=== PATIENT | male | born 1970 | race Two or more races ===

== ENCOUNTER 2021-11-10 08:57 | Emergency (ER) | payer MEDICAID, SELFPAY ==
--- NOTE | ~2021-11-10 | XR_ITS ---
EXAMINATION: XR ELBOW, RIGHT. Right wrist. CLINICAL INFORMATION: Pain. Pain COMPARISON: None TECHNIQUE: AP, lateral, and oblique views of the right wrist and right elbow. FINDINGS: Right elbow: No fracture, dislocation or destructive lesion. There is a small spur off the olecranon. Radial head appears intact. No erosive change. 3 views of the right wrist show normal carpal alignment. There is moderate degenerative change at the first CMC joint with marginal spurring as well as osteophyte formation at the junction of the scaphoid, and multangular bones. Distal radius and ulna are intact. XR/XR wrist RT w scaphoid IMPRESSION: Degenerative changes noted. No acute findings.
--- NOTE | ~2021-11-10 | XR_ITS ---
EXAMINATION: XR ELBOW, RIGHT. Right wrist. CLINICAL INFORMATION: Pain. Pain COMPARISON: None TECHNIQUE: AP, lateral, and oblique views of the right wrist and right elbow. FINDINGS: Right elbow: No fracture, dislocation or destructive lesion. There is a small spur off the olecranon. Radial head appears intact. No erosive change. 3 views of the right wrist show normal carpal alignment. There is moderate degenerative change at the first CMC joint with marginal spurring as well as osteophyte formation at the junction of the scaphoid, and multangular bones. Distal radius and ulna are intact. XR/XR elbow RT min 3V IMPRESSION: Degenerative changes noted. No acute findings.
[2021-11-10 09:59] VITALS: BP 139/81; PULSE 62; RESP 18; TEMP 36.8; O2SAT 98; BMI 29.5
--- NOTE | 2021-11-10 10:55 | ED_ITS ---
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 Patient is right-handed any tells me at his job he does do repetitive movement with his right upper extremity. He denies any associated weakness, numbness, tingling. Patient reports pain and the entire extremity but feels like it is more focal over the wrist and elbow. Related Data Previous Rx's Medication Instructions Recorded cyclobenzaprine 10 mg tablet 10 mg PO TID PRN #20 tab 11/10/21 naproxen 500 mg tablet 500 mg PO BID PRN #30 tab 11/10/21 Allergies Allergy/AdvReac Type Severity Reaction Status Date / Time No Known Allergies Allergy Verified 11/10/21 09:58 [No Known Allergies*] Review of Systems Review of Systems: Yes all other systems are reviewed and are negative Constitutional: Constitutional: Reports no additional constitutional complaints, Denies body ache(s), Denies chills, Denies fever(s), Denies headache(s) and Denies weakness Eyes: Eyes: Reports no additional eye complaints and Denies change in vision ENT: Reports system reviewed and no additional complaints, except as documented, Denies dizziness, Denies headache(s), Denies nasal congestion, Denies nasal discharge and Denies neck pain Cardiovascular: Cardiovascular: Reports no additional cardiovascular complaints, Denies chest pain, Denies leg edema and Denies dyspnea Respiratory: Respiratory: Reports no additional respiratory complaints, Denies cough and Denies dyspnea Gastrointestinal: Gastrointestinal: Reports no additional gastrointestinal complaints, Denies abdominal pain, Denies diarrhea, Denies nausea and Denies vomiting Genitourinary: Genitourinary: Denies urinary incontinence Musculoskeletal: Musculoskeletal: Reports no additional musculoskeletal complaints, Denies back pain, Reports arthralgias, Denies joint swelling, Denies limited range of motion, Denies neck pain, Denies numbness and Denies tingling Integumentary/Breasts: Skin/Breast: Reports system reviewed and no additional complaints, except as docu and Denies rash Neurologic: Reports system reviewed and no additional complaints, except as documented, Denies Abnormal speech present, Denies dizziness, Denies headache(s), Denies numbness, Denies tingling and Denies weakness PMFSH Past Medical History Attestation statement: The following information was validated with the patient. Source: old records reviewed and nursing notes reviewed Social History Social History Advance Directives: No Advance Directives Information Provided: No Physical Exam Vital Signs: Vital Signs: Last Vital Signs Temp 98.3 F 11/10/21 09:59 Pulse 62 11/10/21 09:59 Resp 18 11/10/21 09:59 BP 139/81 11/10/21 09:59 Pulse Ox 98 11/10/21 09:59 BMI result Body Mass Index 29.5 Const: General: cooperative, healthy appearing, comfortable and no acute distress Orientation/consciousness: patient oriented x3 Limitations: no limitations HEENT: Head: Yes normal to inspection Ears: hearing grossly normal bi laterally General nose exam: Normal external nose present Face and sinus: Yes normal facial exam Mouth: Normal oral and palatal mucosa present Throat: Yes posterior oropharynx normal Eyes: General: appearance normal, both eyes and all related structures Pupils: Equal, round and reactive pupils present Neck: Neck: Yes normal visual inspection Chest: Chest palpation & inspection: normal inspection of the chest Resp: Effort & Inspection: normal respiratory effort Auscultation: clear to auscultation bilaterally Cardio: Rate: regular rate Rhythm: regular rhythm Peripheral pulses: Peripheral pulses 2+ throughout GI: Inspection: Yes normal to inspection Palpation (GI): Soft to palpation and nontender Auscultation: normal bowel sounds Back/Spine/Pelvis: Thoracic/Lumbar Spine: thoracic and lumbar spine normal to inspection Skin: General skin exam: no rashes or lesions noted Neuro: General: patient oriented x3, no focal motor deficits and normal sensation to monofilament Cranial nerves: Yes Equal, round and reactive pupils present Cognition (Neuro): normal cognition Speech: No Abnormal speech present Gait exam (Neuro): Normal gait present Motor exam (neuro): 5/5 motor strength present throughout Extrem: Other: Patient reports pain to the lateral/medial right elbow but has full range of motion. Patient also reports pain to the dorsal aspect of the right wrist with full range of motion. Distal sensation normal. There is no obvious joint swelling, no redness, warmth. Neurovascular intact distally to the injury. Negative Radha test. Negative Phalen and Tinel sign. No shoulder or hand pain with full range of motion. General: Yes normal to inspection Course Course Course Narrative: 51-year-old male right-hand dominant with no other medical history here with right upper extremity pain the last 2 weeks with no known specific injury or trauma. Patient does do some repetitive movement with his right upper extremity while working. Will check x-rays of elbow/wrist as this is where I am able to illicit pain Reevaluation(s) Reevaluation #1: X-rays of the right wrist show degenerative changes. X-rays of the right elbow show a bone spur but no other acute finding. Likely patient also has underlying pulmonary of muscle strain. Will recommend NSAID, low-dose muscle relaxant follow-up with Orthopedics in 7 days for persistent symptoms. Reviewed worrisome signs and symptoms of when to return to the emergency department. Comfortable discharge home. Time: 13:00 MDM - Extremity (Nontraumatic) Medical Records Attestation: I reviewed the patient's medical records. Lab Data Attestation: I reviewed the patient's lab results. Imaging Data elbow/wrist xray: Attestation: I personally reviewed and interpreted this imaging study as follows: Radiologist's impression: TECHNIQUE: AP, lateral, and oblique views of the right wrist and right elbow. FINDINGS: Right elbow: No fracture, dislocation or destructive lesion. There is a small spur off the olecranon. Radial head appears intact. No erosive change. 3 views of the right wrist show normal carpal alignment. There is moderate degenerative change at the first CMC joint with marginal spurring as well as osteophyte formation at the junction of the scaphoid, and multangular bones. Distal radius and ulna are intact.? XR/XR elbow RT min 3V IMPRESSION: Degenerative changes noted. No acute findings. Discharge Plan Discharge Clinical Impression: Osteoarthritis of right wrist, Muscle strain of upper arm Patient Disposition: Home, Self-Care Instructions: Muscle Strain (DC), Osteoarthritis (DC) Additional Instructions: Heat or ice Gentle stretching Follow-up with orthopedics for persistent symptoms >7 days Prescriptions: New cyclobenzaprine 10 mg tablet 10 mg PO TID PRN (Reason: muscle spasm) Qty: 20 0RF naproxen 500 mg tablet 500 mg PO BID PRN (Reason: pain) Qty: 30 0RF Ref[place]: [facility] [place] [facility] [Provider Group] Mary Beck MD [Primary Care Provider] - 1 week Stand Alone Forms: Work/School Release Print Language: Libyan
== END 2021-11-10 13:17 | disposition home or self-care (01) ==
PROVIDERS: Emergency Provider Emergency Medicine; PCP Internal Medicine
DX: M19.031 Primary osteoarthritis, right wrist (principal); S46.911A Strain of unspecified muscle, fascia and tendon at shoulder and upper arm level, right arm, initial encounter; X50.3XXA Overexertion from repetitive movements, initial encounter; Y93.9 Activity, unspecified; Y92.9 Unspecified place or not applicable; Y99.9 Unspecified external cause status
CPT/HCPCS: 73080; 73110; 99283

== ENCOUNTER → 2022-01-01 12:41 | Outpatient (BNVA) | payer MEDICAID, SELFPAY | PROVIDERS: PCP Internal Medicine; Visit Provider Physician Assistant | DX: M77.8 Other enthesopathies, not elsewhere classified (principal) | CPT/HCPCS: 99202 ==

== ENCOUNTER 2022-03-01 11:36 | Emergency (ER) | payer MEDICAID, SELFPAY ==
[2022-03-01 12:01] VITALS: BP 126/78; PULSE 76; RESP 18; TEMP 37.2; O2SAT 98; BMI 29.5
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
[2022-03-01] MEDS: Diphth,Pertus(ACell),Tet Adult 0.5 ML SYRINGE IM (16:15)
== END 2022-03-01 16:26 | disposition home or self-care (01) ==
PROVIDERS: Emergency Provider Emergency Medicine; PCP Internal Medicine
DX: M77.11 Lateral epicondylitis, right elbow (principal); M25.521 Pain in right elbow; K02.9 Dental caries, unspecified; T22.221A Burn of second degree of right elbow, initial encounter; X08.8XXA Exposure to other specified smoke, fire and flames, initial encounter; Y93.9 Activity, unspecified; Y92.9 Unspecified place or not applicable; Y99.9 Unspecified external cause status
CPT/HCPCS: 90471; 90715; 99283; 99284

== ENCOUNTER 2022-08-27 13:00 | Outpatient (RCR) | payer MEDICAID, SELFPAY ==
--- NOTE | 2022-07-30 15:32 | MHC.OT.EP ---
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 HE WAS SEEN AT THE ORTHO OFFICE DECEMBER 2021 WITH AN OT SCRIPT FOR R ELBOW TENDINITIS. 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 PAIN APPEARS TO BE HIS GREATEST IMPAIRMENT AT THIS TIME. Pt WOULD BENEFIT FROM ONGOING OT TO ADDRESS UE CONDITIONING, STRENGTHENING AND STRETCHING, WORK CONDITIONING AND PAIN MANAGEMENT. Frequency and Duration: The patient will be seen 1X/WEEK FOR 4 WEEKS Short Term Goals: SEE BELOW Custodial Goals: IND HEP AND PROGRESSION OF UE THER EX PROGRAM REPORT <6/10 PAIN WITH IADLs TRIAL COMPRESSIVE SLEEVE TO R ELBOW DURING IADLs PRACTICE ACTIVITY MODIFICATION AND JT PROTECTION STRATEGIES IND HEAT/ COLD MODALITIES FOR PAIN RELIEF Treatment Plan: Therapeutic Exercise Therapeutic Activity Home Exercise Program Splinting Neuro Re-ed Patient Education Desensitization/Sensory Re-ed Edema Control ADL Training Ultrasound NMES Iontophoresis Paraffin Fluidotherapy MHP Cold Packs Joint Mobilization Soft Tissue Mobilization Kinesiotaping Other (see comments) REQUESTING 1X/WEEK DUE TO WORK SCHEDULE Electronically Signed By: RIGO DEL REAL OTR/L Please Sign and return to therapist. Thank you once again for your referral.
--- NOTE | 2022-09-03 13:34 | MHC.OT.DC ---
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 Pt WAS EDUCATED ON JOINT PROTECTION STRATEGIES AND ACTIVITY MODIFICATION. 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 Pt TO BE D/C FROM OT DUE TO NO-SHOWS/ CORE ATTENDANCE POLICY. Electronically Signed By: RIGO DEL REAL OTR/L Reviewed/agree with student documentation: N/A Therapist: Please Sign and return to therapist, thank you for your referral.
== END 2022-09-03 13:35 | disposition home or self-care (01) ==
LOC: HO.OT 13:00
PROVIDERS: PCP Advanced Practice Midwife; Visit Provider Physician Assistant
DX: M77.8 Other enthesopathies, not elsewhere classified (principal)
CPT/HCPCS: 97035; 97110; 97140; 97166

== ENCOUNTER 2023-01-11 08:31 | Emergency (ER) | payer MEDICAID, SELFPAY ==
--- NOTE | ~2023-01-11 | XR_ITS ---
EXAMINATION: XR FOOT, LEFT CLINICAL INFORMATION: Left foot pain. COMPARISON: Left foot radiographs dated 03/30/2019. TECHNIQUE: AP, lateral, and oblique views of the left foot. FINDINGS: There is no acute fracture or dislocation. Mild distal interphalangeal degenerative joint changes are seen. The tarsal bones are normally aligned. Small plantar and retrocalcaneal spurs are noted with mild interval increase. The soft tissues are unremarkable. XR/XR foot LT min 3V IMPRESSION: Small degenerative calcaneal spurs with mild interval increase in size. Mild distal interphalangeal osteoarthritis appears mildly increased as well. No acute abnormality.
[2023-01-11 08:34] VITALS: BP 132/92; PULSE 84; RESP 20; TEMP 36.1; O2SAT 98; BMI 32.2
--- NOTE | 2023-01-11 09:20 | ED.GENADULT ---
HPI - General Adult General Chief complaint: Extremity Problem Stated complaint: L leg pain Time Seen by Provider: 01/11/23 09:04 Source: patient Limitations: language barrier History of Present Illness HPI narrative: 52 y/o M with past medical history of prediabetes and arthritis presents with L foot pain. He has had this pain for 2-3 months and it gets worse after standing on it for long periods of time. He says the pain is localized to the posterior aspect of his foot. He reports no trauma to the foot. He has had arthritis to his R foot, R shoulder and R elbow in the past for which he was prescribed Naproxen. He states that this feels similar to the arthritis he had in his R foot. He denies fevers, chills, chest pain, SOB. Onset (ago): month(s) (2-3) Location: left and lower extremity (foot) Severity: moderate Pain Consistency: intermittent Related Data Previous Rx's Medication Instructions Recorded cyclobenzaprine 10 mg tablet 10 mg PO TID PRN muscle spasm #20 11/10/21 tabs naproxen 500 mg tablet 500 mg PO BID PRN pain #30 tabs 11/10/21 bacitracin 500 unit/gram topical 1 appl topical Q8H 8 days #28 grams 03/01/22 ointment naproxen 500 mg tablet 500 mg PO BID PRN pain 10 days #20 03/01/22 tabs prednisone 20 mg tablet 60 mg PO DAILY 5 days #15 tabs 03/01/22 methocarbamol 750 mg tablet 750 mg PO TID PRN pain #20 tabs 01/11/23 naproxen 500 mg tablet (Naprosyn) 500 mg PO BID PRN pain #30 tabs 01/11/23 Allergies Allergy/AdvReac Type Severity Reaction Status Date / Time No Known Allergies Allergy Verified 11/10/21 09:58 [No Known Allergies*] Review of Systems Review of Systems: General: No fever, no chills Cardiovascular: No chest pain Respiratory: No dyspnea Muscle skeletal: Left foot pain, right shoulder pain chronic right elbow pain chronic GI: no nausea vomiting, no diarrhea Skin: No rash PMFSH Past Medical History Attestation statement: The following information was validated with the patient. Social History Social History Advance Directives: No Advance Directives Information Provided: Yes Physical Exam ED Vital Signs: Vital Signs - 24 hr 01/11/23 08:34 Temperature 97.0 F Pulse Rate 84 Respiratory Rate 20 Blood Pressure 132/92 H Pulse Oximetry 98 Oxygen Delivery Method Room Air BMI result Body Mass Index 32.2 General appearance: Awake, alert, cooperative, in no acute distress Skin: Warm, dry, no rash, no erythema induration noted in the left lower foot. Eyes: PERRL, EOMI, no icterus ENT: Oropharynx normal, uvula midline Neck: Soft supple full range of motion Abdomen: Soft nontender, no rebound or guarding, positive bowel sounds Extremities: Achilles is intact positive dorsiflexion with calf compression. Slight tenderness to the dorsum of the left foot no erythema induration noted. Medial lateral malleolus nontender. Pain increases with range of motion. Plantar fascia nontender. Right shoulder full range of motion no crepitus. Full range of motion of the right elbow. Neuro: Alert oriented x3, no focal deficit Psych: Normal affect Medical Decision Making Medical Decision Making MDM Narrative: 52 y/o M with PMHx of prediabetes and arthritis presents with L foot pain for 2-3 months. Patient has a history of polyarticular arthritis that he states feels similar to this pain, so arthritis to L foot is possible. Patient reports that the pain is localized to the posterior aspect of the foot so plantar fasciitis is possible, however his pain is worse at the end of the day rather than in the beginning. Posterior localization of pain may indicate achillies tendonitis, however Gar test was negative and did not elicit more pain. Gout is possible, however pain is non-acute and not reactive to light touch. Fracture is possible, but patient reports no trauma. Differential Diagnosis Left foot arthritis Gouty arthritis Plantar fasciitis Calcaneal spur chronic right shoulder pain X-ray of the left foot is positive for calcaneal spur no arthritic changes. Will place patient on Naprosyn Robaxin at this time. Radiology Impression Discussion of test interpretation with radiology: I have reviewed the radiologist's reading. Radiologist Impression: [address] [address] XRay Report Signed Patient: Ramesh Zepeda MR#: [id number] : 1970 Acct:[id number] Age/Sex: 52 / M ADM Date: 01/11/23 Loc: HO.ED Attending Dr: Ordering Physician: Chance Warner Date of Service: 01/11/23 Procedure(s): XR foot LT min 3V Accession Number(s): [id number] cc: WarnerChance ~ EXAMINATION: XR FOOT, LEFT CLINICAL INFORMATION: Left foot pain.? COMPARISON: Left foot radiographs dated 03/30/2019.? TECHNIQUE: AP, lateral, and oblique views of the left foot. FINDINGS: There is no acute fracture or dislocation. Mild distal interphalangeal degenerative joint changes are seen. The tarsal bones are normally aligned. Small plantar and retrocalcaneal spurs are noted with mild interval increase. The soft tissues are unremarkable.? XR/XR foot LT min 3V IMPRESSION: Small degenerative calcaneal spurs with mild interval increase in size. Mild distal interphalangeal osteoarthritis appears mildly increased as well. No acute abnormality. ? Dictated By: Renzo Mcknight MD Signed By: <Electronically signed by Renzo Mcknight MD in OV> 01/11/23931 DD/ 7 TD/TT:? Chief Operator Reformer: Discharge Plan Discharge Clinical Impression: Calcaneal spur of left foot, Foot pain, left Patient Disposition: Home, Self-Care Instructions: Heel Spur (ED) Additional Instructions: Your x-ray showed a calcaneal spur in arthritic changes to the left foot Follow-up with your PCP is recommended medications as directed Prescriptions: New naproxen [Naprosyn] 500 mg tablet 500 mg PO BID PRN (Reason: pain) Qty: 30 0RF methocarbamol 750 mg tablet 750 mg PO TID PRN (Reason: pain) Qty: 20 0RF No Action prednisone 20 mg tablet 60 mg PO DAILY 5 Days Qty: 15 0RF naproxen 500 mg tablet 500 mg PO BID PRN (Reason: pain) 10 Days Qty: 20 0RF bacitracin 500 unit/gram ointment 1 appl topical Q8H 8 Days Qty: 28 0RF cyclobenzaprine 10 mg tablet 10 mg PO TID PRN (Reason: muscle spasm) Qty: 20 0RF naproxen 500 mg tablet 500 mg PO BID PRN (Reason: pain) Qty: 30 0RF Stand Alone Forms: Work/School Release Print Language: Bengali
--- NOTE | 2023-01-11 09:55 | PC.NURSE ---
PT EVALUATED BY PROVIDER DC'D WITH SPORTS ATHLETIC TRAINER. AMBULATORY OUT OF ER, GAIT STEADY.
== END 2023-01-11 09:55 | disposition home or self-care (01) ==
PROVIDERS: Emergency Provider Emergency Medicine; PCP Advanced Practice Midwife
DX: M77.32 Calcaneal spur, left foot (principal); M79.672 Pain in left foot
CPT/HCPCS: 73630; 99282; 99283

== ENCOUNTER 2023-04-15 11:10 | Emergency (ER) | payer OTHER, SELFPAY ==
[2023-04-15 11:59] VITALS: BP 130/87; PULSE 86; RESP 18; TEMP 36.8; O2SAT 98; BMI 30.8
--- NOTE | 2023-04-15 12:01 | ED_ITS ---
HPI - General Adult General Chief complaint: Extremity Injury, Lower Stated complaint: l leg pain Time Seen by Provider: 04/15/23 12:33 Source: patient Mode of arrival: ambulatory Limitations: language barrier ( Frisian-speaking medical numerical control operator utilized) History of Present Illness HPI narrative: patient is a 52-year-old male presents emergency department for evaluation of of left foot/ heel pain. When he is weight-bearing or ambulating for prolonged periods the pain radiates all the way up his leg in into the hip. When he is not weight-bearing or ambulating he does not feel leg or hip pain. He has tri aled ibuprofen and naproxen without significant improvement. Pain is exacerbated with prolonged standing, ambulation, walking while barefoot. He states he was seen here earlier this year with similar complaints, at that time his symptoms were relieved with naproxen. He has been taking meloxicam that is prescribed to his girlfriend and he has had some relief with this. He denies numbness tingling sensation to the foot, denies any trauma, no redness, swelling, fevers, chills. Related Data Previous Rx's Medication Instructions Recorded cyclobenzaprine 10 mg tablet 10 mg PO TID PRN muscle spasm #20 11/10/21 tabs naproxen 500 mg tablet 500 mg PO BID PRN pain #30 tabs 11/10/21 bacitracin 500 unit/gram topical 1 appl topical Q8H 8 days #28 grams 03/01/22 ointment naproxen 500 mg tablet 500 mg PO BID PRN pain 10 days #20 03/01/22 tabs prednisone 20 mg tablet 60 mg (3 x 20 mg) PO DAILY 5 days 03/01/22 #15 tabs methocarbamol 750 mg tablet 750 mg PO TID PRN pain #20 tabs 01/11/23 naproxen 500 mg tablet (Naprosyn) 500 mg PO BID PRN pain #30 tabs 01/11/23 meloxicam 7.5 mg tablet 7.5 mg PO DAILY #10 tabs 04/15/23 Allergies Allergy/AdvReac Type Severity Reaction Status Date / Time No Known Allergies Allergy Verified 04/15/23 12:03 [No Known Allergies*] Review of Systems Review of Systems: Yes all other systems are reviewed and are negative PMFSH Past Medical History Attestation statement: The following information was validated with the patient. Source: old records reviewed Physical Exam ED Vital Signs: Vital Signs - 24 hr 04/15/23 11:59 04/15/23 12:24 Temperature 98.2 F 98.3 F Pulse Rate 86 82 Respiratory Rate 18 16 Blood Pressure 130/87 146/94 H Pulse Oximetry 98 97 Oxygen Delivery Method Room Air Room Air BMI result Body Mass Index 30.8 Appearance: Alert.?Oriented to person, place and time. No acute distress.?Normal affect. Neck: Normal inspection.? Neck supple.?? CVS: Heart sounds normal. Normal heart rate and rhythm.? Pulses normal.?? Respiratory: No respiratory distress.? Lung sounds clear to auscultation bilaterally??? Skin: Skin warm and dry.? Normal skin color.? Extremities: No lower extremity edema.? No calf ttp? Diffuse tenderness upon palpation of the left heel. 2+ DP/ PT pulse bilaterally. No erythema warmth or lesions. Neuro: Moves all extremities spontaneously. Sensation intact bilaterally. Ambulates with normal steady gait. Course Course Course Narrative: This is a rapid medical exam: Additional HPI, ROS, PE not included below will be deferred to primary provider. Patient is a 52-year-old Frisian-speaking male presenting to the emergency department with complaint of left leg pain. States the pain begins in his left foot and radiates up his leg to lower back. Has been taking ibuprofen without relief. Worse with ambulation. Was seen here in January for same complaint, had L foot x-ray, which showed calcaneal spur. Medical Decision Making Medical Decision Making MDM Narrative: patient Is a 52-year-old male who presents to the emergency department for evaluation of left foot/ heel pain radiating up the leg exacerbated with weight- bearing and prolonged ambulation also while barefoot. He reports a history of polyarticular arthritis, prediabetes. Upon examination there is no erythema or warmth, this is atraumatic in nature. Low suspicion for fracture / dislocation given the traumatic nature. Full AROM, and no erythema or warmth, low suspicion for cellulitis, gout, septic arthritis. Gar test negative, unlikely Achilles tendinitis. Based on history and physical examination I suspect a plantar fasciitis, sent prescription for meloxicam to patient's pharmacy, advised changing footwear, supportive shoe inserts, follow-up with primary care provider/ tree cutter for further evaluation and treatment. Discussed worrisome signs and symptoms that would warrant re-evaluation emergency department. All questions answered. Stable for discharge. Differential Diagnosis Differential Diagnoses: The differential diagnosis associated with the presentation includes ( As noted above) Tests considered The following testing was considered but not selected: I considered XR imaging, had prior which revealed calcaneal spur, atraumatic, no indication for repeat x-ray at this time. Prescription Management I considered prescription management with: Pain Medication Discharge Plan Discharge Clinical Impression: Plantar fasciitis of left foot Patient Disposition: Home, Self-Care Instructions: Plantar Fasciitis (ED), Plantar Fasciitis Exercises (ED) Additional Instructions: as discussed, take the meloxicam as prescribed, do not take additional [id number] pain medication including ibuprofen/ Motrin/ Advil, Aleve / naproxen, aspirin. Consider changing her footwear, purchasing [id number] shoe inserts from the pharmacy. Please contact your primary care provider and arrange for a follow-up visit, as discussed you may require referral to Podiatry for further management. Prescriptions: New meloxicam 7.5 mg tablet 7.5 mg PO DAILY Qty: 10 0RF No Action prednisone 20 mg tablet 60 mg PO DAILY 5 Days Qty: 15 0RF naproxen 500 mg tablet 500 mg PO BID PRN (Reason: pain) 10 Days Qty: 20 0RF bacitracin 500 unit/gram ointment 1 appl topical Q8H 8 Days Qty: 28 0RF cyclobenzaprine 10 mg tablet 10 mg PO TID PRN (Reason: muscle spasm) Qty: 20 0RF naproxen 500 mg tablet 500 mg PO BID PRN (Reason: pain) Qty: 30 0RF naproxen [Naprosyn] 500 mg tablet 500 mg PO BID PRN (Reason: pain) Qty: 30 0RF methocarbamol 750 mg tablet 750 mg PO TID PRN (Reason: pain) Qty: 20 0RF
[2023-04-15 12:24] VITALS: BP 146/94; PULSE 82; RESP 16; TEMP 36.8; O2SAT 97
== END 2023-04-15 14:08 | disposition home or self-care (01) ==
PROVIDERS: Emergency Provider Emergency Medicine; PCP Advanced Practice Midwife
DX: M72.2 Plantar fascial fibromatosis (principal); M79.605 Pain in left leg; M25.552 Pain in left hip; Z79.899 Other long term (current) drug therapy
CPT/HCPCS: 99282; 99283

== ENCOUNTER 2024-01-06 10:43 | Outpatient (REF) | payer SELFPAY ==
[2024-01-06 11:38] LABS: MANUAL DIFF FLAG NO
[2024-01-06 11:50] LABS: Basophils Percent Auto 0.3 % (0-2); Eosinophils Absolute Auto 0.1 X10*3/uL (0.0-0.4); Hematocrit 43.9 % (42.0-52.0); Hemoglobin 14.7 g/dl (14.0-18.0); Imm Gran Abs Auto 0.05 X10*3/uL (0.00-0.03); Imm Gran Pct Auto 0.5 % (0.0-0.4); Lymphocytes Absolute Auto 1.8 X10*3/uL (1.2-4.9); Lymphocytes Percent Auto 19.4 % (20-40); Mean Corpuscular HGB Conc 33.5 g/dl (31.0-36.0); Mean Corpuscular Hemoglobin 28.3 pg (27.0-33.0); Mean Corpuscular Volume 84.6 fL (80.0-98.0); Mean Platelet Volume 11.8 fL (9.4-12.4); Monocytes Absolute Auto 0.6 X10*3/uL (0.1-1.2); Neutrophils Absolute Auto 6.8 x10*3/uL (2.0-8.3); Neutrophils Percent Auto 72.8 % (45-73); Platelet Count 217 X10*3/uL (160-400); Red Blood Count 5.19 X10*6/uL (4.60-5.80); Red Cell Distribution Width 13.1 % (11.0-16.0); White Blood Count 9.4 X10*3/uL (4.8-10.8)
[2024-01-06 12:03] LABS: Estimated Average Glucose 131 mg/dL; Hemoglobin A1c % 6.2 % (<6.0)
[2024-01-06 12:12] LABS: Alanine Aminotransferase 23 U/L (0-40); Albumin Level 4.6 g/dL (3.5-5.0); Alkaline Phosphatase 74 U/L (39-117); Anion Gap 15 (12-20); Aspartate Amino Transferase 20 U/L (5-37); Bilirubin Direct 0.1 mg/dL (0.0-0.5); Bilirubin Total 0.3 mg/dL (0.0-1.0); Blood Urea Nitrogen 15 mg/dL (9-16); Calcium 9.3 mg/dL (8.4-10.2); Carbon Dioxide 25 mmol/L (22-29); Chloride 103 mmol/L (96-108); Cholesterol 237 mg/dL (<200); Estimated Glomerular Filt Rate > 60; Glucose Random 118 mg/dL (60-115); HDL Cholesterol 48 mg/dL (>40); LDL Cholesterol Calculated 139 mg/dL (<100); Sodium 140 mmol/L (135-145); Total Protein 7.6 g/dL (6.5-8.0); Triglycerides 254 mg/dL (<150)
[2024-01-06 12:17] LABS: Alanine Aminotransferase 19 U/L (0-40); Albumin Level 4.6 g/dL (3.5-5.0); Alkaline Phosphatase 74 U/L (39-117); Anion Gap 15 (12-20); Aspartate Amino Transferase 24 U/L (5-37); Bilirubin Total 0.3 mg/dL (0.0-1.0); Blood Urea Nitrogen 15 mg/dL (9-16); Calcium 9.2 mg/dL (8.4-10.2); Carbon Dioxide 23 mmol/L (22-29); Chloride 104 mmol/L (96-108); Cholesterol 236 mg/dL (<200); Estimated Glomerular Filt Rate > 60; Glucose Random 116 mg/dL (60-115); HDL Cholesterol 50 mg/dL (>40); LDL Cholesterol Calculated 138 mg/dL (<100); Potassium 3.1 mmol/L (3.3-5.1); Sodium 139 mmol/L (135-145); Total Protein 7.6 g/dL (6.5-8.0); Triglycerides 244 mg/dL (<150)
[2024-01-06 12:26] LABS: HBS Num1 0.97 mIU/mL (0-7.99); HBc Num1 5.58 S/CO (0.00-0.79); HBsAGNum1 0.31 S/CO (0.00-0.99); Hepatitis B Surface Antigen Negative (Negative); ~Hepatitis B Surface Antibody NONREACTIVE (Nonreactive); ~Hepatitis C Antibody Reactive (Nonreactive)
[2024-01-06 13:01] LABS: Reflex LDLD? No
[2024-01-06 13:44] LABS: HBc Num3 5.49 S/CO; Hepatitis B Core Antibody Reactive (Nonreactive)
[2024-01-08 19:39] LABS: TS Negative Control Passed; TS Panel A 61; TS Panel B 110; TS Positive Control Passed; TSpotTB Positive (Negative)
[2024-01-09 12:24] LABS: Hepatitis B Core Antibody IgM NON-REACTIVE (NON-REACTIVE)
== END 2024-01-06 10:44 | disposition home or self-care (01) ==
LOC: HO.HHCL 10:43
PROVIDERS: Physician Assistant Medical; Visit Provider Nurse Practitioner Family
DX: E78.2 Mixed hyperlipidemia (principal); I10 Essential (primary) hypertension; L40.0 Psoriasis vulgaris; L40.59 Other psoriatic arthropathy; Z79.899 Other long term (current) drug therapy
CPT/HCPCS: 36415; 80048; 80053; 80061; 80076; 82248; 83036; 85025; 86481; 86704; 86705; 86706; 86803; 87340

== ENCOUNTER 2024-11-26 10:57 | Outpatient (REF) | payer SELFPAY ==
--- NOTE | ~2024-11-26 | XR_ITS ---
EXAMINATION: XR CHEST CLINICAL INFORMATION: Hx TB, sp treatment more than 10y ago. COMPARISON: September 25, 2018 TECHNIQUE: 2 views of the chest were obtained. FINDINGS: Cardiac and mediastinal contours are within normal limits. The lungs are clear and well expanded. There is no apical scarring or calcified granulomas. No pleural effusions are seen. Mild multilevel disc space narrowing is evident in the thoracic spine. XR/XR chest 2V IMPRESSION: No acute disease. Electronically signed by: Cleveland Cordero MD 11/26/2024 11:58 AM EDT
--- OUTSIDE RECORDS SUMMARY | 2024-11-26 12:29 | XMS_ITS | Encounter Summary ---
Author Organization [employer] Address [address] [place] [address] [address] [place] [address] Care Team Providers Care Marketing Development Manager Name Role Phone Hailey Harrington Primary Care Provider [phone] Hailey Harrington Primary Care Provider [phone] Andreea Porter NP Primary Care Provider [phone] Reason for Visit * Reason Comments Med Refill Encounter Details Date Type Department Care Team (Late st Contact Info) Description 09/21/2023 Refill [facility] [address] [place] [address] Iban Yoo FNP Social History Tobacco Use Types Packs/Day Years Used Date Smoking Tobacco: Former Cigarettes Q uit: 04/19/2022 Passive Smoke Exposure: Past Smokeless Tobacco: Never Sex and Gender Information Value Date Recorded Sex Assigned at Male 04/12/2022 10:31 AM EDT Legal Sex Male 10:31 AM EDT Gender Identity Male 04/12/2022 10:31 AM EDT Sexual Orientation Choose not to disclose 2021 10:31 AM EDT documented as of this encounter Plan of Treatment Upcoming Encounters Date Type Department Care Team (Late st Contact Info) Description 01/16/2025 3:15 PM EDT Office Visit [facility] [address] [place] [address] Andreea Porter NP [address] [place] [address] documented as of this encounter Visit Diagnoses Not on filedocumented in this encounter Care Teams Marketing Development Manager Relationship Specialty Start Date End Date Hailey Harrington FNP [address] [place] [address] PCP - General Family Medicine 12/20/22 01/16/24 Hailey Harrington FNP [address] [place] [address] PCP - General Family Medicine 01/17/24 02/13/24 Andreea Porter NP [address] [place] [address] PCP - General Family Medicine 02/14/24 documented as of this encounter
[2024-11-26 13:19] LABS: MANUAL DIFF FLAG NO
[2024-11-26 13:31] LABS: Basophils Absolute Auto 0.1 X10*3/uL (0.0-0.2); Basophils Percent Auto 0.6 % (0-2); Eosinophils Absolute Auto 0.1 X10*3/uL (0.0-0.4); Eosinophils Percent Auto 1.3 % (0-4); Hematocrit 44.5 % (42.0-52.0); Hemoglobin 14.8 g/dl (14.0-18.0); Imm Gran Abs Auto 0.03 X10*3/uL (0.00-0.03); Imm Gran Pct Auto 0.3 % (0.0-0.4); Lymphocytes Percent Auto 22.9 % (20-40); Mean Corpuscular HGB Conc 33.3 g/dl (31.0-36.0); Mean Corpuscular Hemoglobin 28.7 pg (27.0-33.0); Mean Corpuscular Volume 86.2 fL (80.0-98.0); Monocytes Absolute Auto 0.6 X10*3/uL (0.1-1.2); Monocytes Percent Auto 6.6 % (2-11); Neutrophils Percent Auto 68.3 % (45-73); Platelet Count 190 X10*3/uL (160-400); Red Blood Count 5.16 X10*6/uL (4.60-5.80); Red Cell Distribution Width 13.1 % (11.0-16.0); White Blood Count 8.8 X10*3/uL (4.8-10.8)
[2024-11-26 13:53] LABS: Alanine Aminotransferase 22 U/L (0-40); Albumin Level 4.8 g/dL (3.5-5.0); Alkaline Phosphatase 71 U/L (39-117); Anion Gap 14 (12-20); Aspartate Amino Transferase 34 U/L (5-37); Bilirubin Total 0.4 mg/dL (0.0-1.0); Blood Urea Nitrogen 19 mg/dL (9-16); Calcium 9.6 mg/dL (8.4-10.2); Carbon Dioxide 27 mmol/L (22-29); Chloride 105 mmol/L (96-108); Cholesterol 208 mg/dL (<200); Estimated Glomerular Filt Rate > 60; Glucose Random 115 mg/dL (60-115); HDL Cholesterol 42 mg/dL (>40); LDL Cholesterol Calculated 128 mg/dL (<100); Potassium 3.4 mmol/L (3.3-5.1); Sodium 143 mmol/L (135-145); Total Protein 7.5 g/dL (6.5-8.0); Triglycerides 190 mg/dL (<150)
[2024-11-26 14:02] LABS: HIV AB/AG Nonreactive (Nonreactive); HIV Num 1 0.05 S/CO (0.00-0.99)
[2024-11-26 14:03] LABS: Syphilis Screen Nonreactive (Nonreactive)
[2024-11-28 14:53] LABS: HCV Log PCR <1.18 NOT DETECTED Log IU/mL (NOT DETECTED); HepC Viral Load <15 NOT DETECTED IU/mL (NOT DETECTED)
== END 2024-11-26 10:58 | disposition home or self-care (01) ==
LOC: HO.HHCL 10:57
PROVIDERS: Nurse Practitioner Family; Visit Provider Internal Medicine
DX: E78.1 Pure hyperglyceridemia (principal); L40.9 Psoriasis, unspecified; Z86.11 Personal history of tuberculosis
CPT/HCPCS: 36415; 71046; 80053; 80061; 85025; 86780; 87389; 87522

== ENCOUNTER → 2024-11-26 11:09 | Outpatient (BNV) | payer MEDICAID, SELFPAY | PROVIDERS: Visit Provider Radiology Diagnostic Radiology | DX: Z86.11 Personal history of tuberculosis (principal) | CPT/HCPCS: 71046 ==

== ENCOUNTER 2025-03-21 10:32 | Outpatient (REF) | payer OTHER, SELFPAY ==
[2025-03-25 00:19] LABS: TS Negative Control Passed; TS Panel A 15; TS Panel B 42; TS Positive Control Passed; TSpotTB Positive (Negative)
== END 2025-03-21 10:33 | disposition home or self-care (01) ==
LOC: HO.HHCL 10:32
PROVIDERS: PCP Nurse Practitioner; Visit Provider Nurse Practitioner
DX: Z11.1 Encounter for screening for respiratory tuberculosis (principal)
CPT/HCPCS: 36415; 86481

== ENCOUNTER 2025-04-22 09:58 | Outpatient (REF) | payer OTHER, SELFPAY ==
--- OUTSIDE RECORDS SUMMARY | 2025-04-17 11:30 | XMS_ITS | Encounter Summary ---
Author Organization [employer] Address [address] [facility] [address] [place] [address] Care Team Providers Care Pancake Professional Name Role Phone Andreea Porter NP Primary Care Provider [phone] Reason for Visit * Reason Comments Dental Pain Pt came in as an farhan rgency with pain on his right side for a few days Encounter Details Date Type Department Care Team (Late st Contact Info) Description 04/17/2025 11:30 AM EST Office Visit [facility] [address] [place] [address] Casey Cano, NADIRAS [address] [place] [address] Pain, dental (Primary Dx) Social History Tobacco Use Types Packs/Day Years Used Date Smoking Tobacco: Former Cigarettes Q uit: 04/19/2022 Passive Smoke Exposure: Past Smokeless Tobacco: Never Alcohol Use Standard Drinks/Week Comments Yes 0 (1 standard drink = 0.6 oz pur e alcohol) socially Depression Answer Date Recorded Patient Health Questionnaire-9 Score 0 01/25/2025 Patient Health Questionnaire-9 Score 0 01/25/2025 Last PHQ-9: Questionnaire Data Not on file 0 01/25/2025 Housing Stability Answer Date Recorded What is your housing situation today? I have hugh rodriguez 01/25/[address] you li ve. Do you have problems with any of the following? None of the above 01/25/2025 Food Insecurity Answer Date Recorded Within the past 12 months, y ou worried that your food would run out before you got money to buy more: Never True 01/25/2025 Within the past 12 months,th e food you bought just didn't last and you didn't have enough money to get more: Never True Transportation Answer Date Recorded In the past 12 months, has l ack of transportation kept you from medical appts, meetings, work or from getting things needed for daily living? No 01/25/2025 Utilities Answer Date Recorded In the past 12 months, has t he electric, gas, oil or water company threatened to shut off services in your home? No 01/25/2025 Depression Answer Date Recorded Patient Health Questionnaire-2 Score 0 01/25/2025 Internet Access Answer Date Recorded Internet Access Q1 Yes 01/25/2025 Internet Access Q2 Not on file 01/25/2025 Sex and Gender Information Value Date Recorded Sex Assigned at Male 04/12/2022 10:31 AM EDT Legal Sex Male 10:31 AM EDT Gender Identity Male 04/12/2022 10:31 AM EDT Sexual Orientation Choose not to disclose 2021 10:31 AM EDT documented as of this encounter Progress Notes * Casey Cano DDS - 04/17/2025 11:30 AM EST Dental procedures in this visit D0140 - LIMITED ORAL EVALUATION - PROBLEM FOCUSED (Completed) Service provider: Casey Cano DDS Billing provider: Casey Cano DDS [id number] - INTRAORAL - PERIAPICAL FIRST RADIOGRAPHIC IMAGE (Completed) Service provider: Casey Cano DDS Billing provider: Casey Cano DDS [id number] - CASE PRESENTATION, DETAILED AND EXTENSIVE TREATMENT PLANNING (Completed) Service provider: Casey Cano DDS Billing provider: Casey Cano DDS Patient ID: Ramesh Ellis is a 54 y.o. male. Time Out: Timeout Date: 04/17/25, Timeout Time: 1109 (1 pa taken) Location: [facility] Tooth: Maxilla, UR, and #4 Procedure: X-rays and Emergency Verified the above with patient, assistant department manager, and provider. Confirmed via patient's chart, intraorally and by radiographs. Ditcher: not applicable Chief Complaint Patient presents with Dental Pain Pt came in as an emergency with pain on his right side for a few days Medical Hx: Vitals: There were no vitals taken for this visit. Medical History[1] Medications: Encounter Medications[2] Objective HPI Symptomatic Head and Neck Exam: Lymph Nodes, Lips, Palate, Buccal Mucosa, Floor of Mouth, Tongue, Tonsils, Alveolar Ridges, Oropharynx, Salivary Ducts, and Vestibules normal appearance Details: Skin NSF OCS: negative Dental Exam charted Missing teeth acquired T #4 restored recently Reference tooth chart for additional findings. Oral Cancer Risk: Low Risk Oral Hygiene Instructions: Morrice two times daily, modified fonseca technique, Floss daily, Electric toothbrush, Soft bristle toothbrush, Morrice Tongue Caries Risk Assessment: Medium- one risk factor Assessment/Plan EOE X ray Prescription sent to [facility] on file Endo consult Patient tolerated procedure well, all questions answered and expressed understanding. Dismissed in good condition. NV: Dr. Farias Authorization Specialist: Joyce Byers Dentist: Casey Cano DDS [1] Past Medical History: Diagnosis Date Hepatitis C Hyperlipidemia Hypertension Periodontal disease Psoriasis Substance abuse (CMS/HCC) (HCC) [2] Outpatient Encounter Medications as of 04/17/2025 Medication Sig Dispense Refill acetaminophen (Tylenol 8 Hour) 650 MG ER tablet Take 1 tablet (650 mg) by mouth every 8 (eight) hours if needed for mild pain. Do not crush, chew, or split. 30 tablet 0 amLODIPine (Norvasc) 5 MG tablet Take 1 tablet (5 mg) by mouth in the morning. 90 tablet 3 apremilast (Otezla) 10 & 20 & 30 MG tablet therapy pack tablet therapy pack Use as prescribed bid \Do not crush, chew, or split tablets. 55 each 0 atorvastatin (Lipitor) 40 MG tablet Take 1 tablet (40 mg) by mouth at bedtime. 90 tablet 3 Blood Pressure Monitoring (Blood Pressure Cuff) misc Use daily as prescribed 1 each 0 halobetasol (UltraVATE) 0.05 % ointment Apply topically 2 times daily. APPLY 1 GRAM TOPICALLY TO AFFECTED AREA(S) TWICE DAILY 50 g 2 hydroCHLOROthiazide (HYDRODiuril) 50 MG tablet Take 1 tablet (50 mg) by mouth in the morning. 90 tablet 3 ibuprofen 600 MG tablet Take 1 tablet (600 mg) by mouth 3 times daily. 30 tablet 0 No facility-administered encounter medications on file as of 04/17/2025. documented in this encounter Plan of Treatment Upcoming Encounters Date Type Department Care Team (Late st Contact Info) Description 05/02/2025 9:00 AM EST Office Visit [facility] [address] [place] [address] Fontenot-FariasMarine mukherjee DDS [address] [place] [address] 05/27/2025 2:30 PM EST Office Visit [facility] [address] [place] [address] Andreea Porter NP [address] [place] [address] 07/18/2025 2:15 PM EST Office Visit [facility] [address] [place] [address] Baljeet Dooleyaris [address] [place] [address] Scheduled Orders Name Type Priority Associated Diagnoses Orde r Schedule CONSULTATION - DIAGNOSTIC SERVICE PROVIDED BY DENTIST OR PHYSICIAN OTHER THAN REQUESTING DENTIST OR PHYSICIAN Dental Routine 1 Occurrenc es starting 04/17/2025 documented as of this encounter Procedures Procedure Name Priority Date/Time Associated Diagnosis Comments LIMITED ORAL EVALUATION - PROBLEM FOCUSED Routine 04/17/2025 11:30 AM EST INTRAORAL - PERIAPICAL FIRST RADIOGRAPHIC IMAGE Routine 04/17/2025 11:30 AM EST CASE PRESENTATION, DETAILED AND EXTENSIVE TREATMENT PLANNING Routine 04/17/2025 11:30 AM EST documented in this encounter Visit Diagnoses Diagnosis Pain, dental- Primary documented in this encounter Additional Health Concerns Assessment Noted Time PHQ-9 Depression Total Score: 0 01/26/20 25 10:45 AM EDT documented as of this encounter Care Teams Pancake Professional Relationship Specialty Start Date End Date Andreea Porter NP [address] [place] [id number] PCP - General Family Medicine 02/14/24 documented as of this encounter
--- OUTSIDE RECORDS SUMMARY | 2025-04-22 11:30 | XMS_ITS | Encounter Summary ---
Author Organization [employer] Address [address] [place] [address] 7t [place] [address] Care Team Providers Care Rail Car Painter/Sandblaster Name Role Phone Hailey Harrington Primary Care Provider [phone] Hailey Harrington Primary Care Provider [phone] Andreea Porter BAG INSPECTOR Primary Care Provider [phone] Encounter Details Date Type Department Care Team (Late st Contact Info) Description 07/20/2023 Orders Only [facility] CHC MED & PEDS [address] [place] [address] Hailey Harrington FNP [address] [place] [address] Social History Tobacco Use Types Packs/Day Years [...] Encounters Date Type Department Care Team (Late Contact Info) Description 05/02/2025 9:00 AM EST Office Visit [facility] ADULT DENTAL [address] [place] [address] Marine Stern, DDS [address] [place] [address] 05/27/2025 2:30 PM EST Office Visit [facility] MEDICINE [address] [place] [address] Andreea Porter NP [address] [place] [address] 07/18/2025 2:15 PM EST Office Visit [facility] ADULT DENTAL [address] [place] [address] Baljeet Dooleyaris [address] [place] [address] documented as of this encounter Visit Diagnoses Not on filedocumented in this encounter Care Teams Rail Car Painter/Sandblaster Relationship Specialty Start Date End Date Hailey Harrington FNP [address] [place] [address] PCP - General Family Medicine 12/20/22 01/16/24 Hailey Harrington FNP [address] [place] [address] PCP - General Family Medicine 01/17/24 02/13/24 Andreea Porter NP [address] [place] [address] PCP - General Family Medicine 02/14/24 documented as of this encounter
--- OUTSIDE RECORDS SUMMARY | 2025-04-22 11:30 | XMS_ITS | Encounter Summary ---
Author Organization [employer] Address [address] [facility] 7t [place] [address] Care Team Providers Care Field Marketing Coordinator Name Role Phone Hailey Harrington Primary Care Provider [phone] Hailey Harrington Primary Care Provider [phone] Andreea Porter NP Primary Care Provider [phone] Reason for Visit * Reason Onset Date Comments Prior Authorization 08/19/2023 telephone call 08/19/2023 No Show 08/19/2023 Encounter Details Date Type Department Care Team (Late st Contact Info) Description 08/19/2023 Telephone [facility] MEDICINE [address] [place], [place] [phone] Hailey Harrington FNP [address] [place] [address] Prior Authorization; telephone call; No Show Social History Tobacco Use Types Packs/Day Years [...] AM EDT documented as of this encounter Miscellaneous Notes * Telephone Encounter - Maura Dewayne - 09/02/2023 2:20 PM EDT Tc to patient to see what insurance patient has. Patient states he was coming to [facility] to provide us his insurance card and then PCP can do telephone visit. Patient never came, no show for today's telephone visit. * Telephone Encounter - Maura Buchanan - 09/01/2023 10:26 AM EDT Tc to patient due to [facility] insurance. [facility] so FD can document and scan new insurance. * Telephone Encounter - Ting Avelar - 08/22/2023 1:41 PM EDT PA form corrected; to be placed on pcp desk for review and signature to then be faxed to . * Telephone Encounter - Ting Avelar - 08/19/2023 3:58 PM EST PA form generated and placed on pcp desk for review and signature to then be faxed to . * Telephone Encounter - Bronwyn Amezcua LPN - 08/19/2023 3:36 PM EST Next appointment 09/02/23. * Telephone Encounter - Ting Avelar - 08/19/2023 3:32 PM EST Food Mixer s/w Abiel/[facility] pharmacy, who stated hydroCHLOROthiazide (HYDRODiuril) 50 MG tablet does not need a PA, needs a refill. Food Mixer will work on PA for Otezla. * Telephone Encounter - Hector Bates - 08/19/2023 12:57 PM EST Tc from pt stating hydroCHLOROthiazide (HYDRODiuril) 50 MG tablet and Otezla 30 MG tablet needs prior authorization. If any questions you can contact pt at [phone]. documented in this encounter Plan of Treatment Upcoming Encounters Date Type Department Care Team (Late st Contact Info) Description 05/02/2025 9:00 AM EST Office Visit [facility] ADULT DENTAL [address] [place] [address] Marine Stern, DDS [address] [place] [address] 05/27/2025 2:30 PM EST Office Visit [facility] MEDICINE [address] [place] [address] Andreea Porter NP [address] [place] [address] 07/18/2025 2:15 PM EST Office Visit [facility] ADULT DENTAL [address] [place] [address] Soumya, Natalie [address] [place] [address] documented as of this encounter Visit Diagnoses Not on filedocumented in this encounter Care Teams Field Marketing Coordinator Relationship Specialty Start Date End Date Hailey Harrington FNP [address] [place] [address] PCP - General Family Medicine 12/20/22 01/16/24 Hailey Harrington FNP [address] [place] [address] PCP - General Family Medicine 01/17/24 02/13/24 Andreea Porter NP [address] [place] [address] PCP - General Family Medicine 02/14/24 documented as of this encounter
--- OUTSIDE RECORDS SUMMARY | 2025-04-22 11:30 | XMS_ITS | Encounter Summary ---
Author Organization [employer] Address [address] [place] [address] 7t [place] [address] Care Team Providers Care Other Spatial Scientist Name Role Phone Hailey Harrington Primary Care Provider [phone] Hailey Harrington Primary Care Provider [phone] Andreea Porter BRAND ADVISOR Primary Care Provider [phone] Encounter Details Date Type Department Care Team (Late st Contact Info) Description 08/22/2023 Orders Only [facility] CHC MED & PEDS [address] [place] [address] Hailey Harrington FNP [address] [place] [address] Social History Tobacco Use Types Packs/Day Years [...] Description 05/02/2025 9:00 AM EST Office Visit [facility] ADULT DENTAL [address] [place] [address] Marine Stern, DDS [address] [place] [address] 05/27/2025 2:30 PM EST Office Visit [facility] MEDICINE [address] [place] [address] Andreea Porter NP [address] [place] [address] 07/18/2025 2:15 PM EST Office Visit [facility] ADULT DENTAL [address] [place] [address] Baljeet Dooleyaris [address] [place] [address] documented as of this encounter Visit Diagnoses Not on filedocumented in this encounter Care Teams Other Spatial Scientist Relationship Specialty Start Date End Date Hailey Harrington FNP [address] [place] [address] PCP - General Family Medicine 12/20/22 01/16/24 Hailey Harrington FNP [address] [place] [address] PCP - General Family Medicine 01/17/24 02/13/24 Andreea Porter NP [address] [place] [address] PCP - General Family Medicine 02/14/24 documented as of this encounter
--- OUTSIDE RECORDS SUMMARY | 2025-04-22 11:30 | XMS_ITS | Encounter Summary ---
Author Organization [employer] Address [address] [place] [address] 7t [place] [address] Care Team Providers Care Quill Reamer Name Role Phone Hailey Harrington Primary Care Provider + Hailey Harrington Primary Care Provider + Andreea Porter NP Primary Care Provider [phone] Reason for Visit * Reason Comments Med Refill Encounter Details Date Type Department Care Team (Late st Contact Info) Description 09/21/2023 Refill [facility] W[facility] [address] [place] [address] Iban Yoo FNP Social History Tobacco Use [...] Description 05/02/2025 9:00 AM EST Office Visit [facility] ADULT DENTAL [address] [place] [address] Marine Stern, DDS [address] [place] [address] 05/27/2025 2:30 PM EST Office Visit [facility] MEDICINE [address] [place] [address] Andreea Porter NP [address] [place] [address] 07/18/2025 2:15 PM EST Office Visit [facility] ADULT DENTAL [address] [place] [address] Baljeet Dooleyaris [address] [place] [address] documented as of this encounter Visit Diagnoses Not on filedocumented in this encounter Care Teams Quill Reamer Relationship Specialty Start Date End Date Hailey Harrington FNP [address] [place] [address] PCP - General Family Medicine 12/20/22 01/16/24 Hailey Harrington FNP [address] [place] [address] PCP - General Family Medicine 01/17/24 02/13/24 Andreea Porter NP [address] [place] [address] PCP - General Family Medicine 02/14/24 documented as of this encounter
--- OUTSIDE RECORDS SUMMARY | 2025-04-22 11:31 | XMS_ITS | Encounter Summary ---
Author Organization [employer] Address [address] [facility] 7t [place] [address] Care Team Providers Care Assistant Coach Name Role Phone Andreea Porter NP Primary Care Provider [phone] Reason for Visit * Reason Onset Date Comments Med Refill Letter Request 04/15/2025 The patient requ ested a letter, to be excused from having to do community service for four months, while he undergoes treatment for latent TB. I informed him that the request has been denied, because the treatment should not affect his work schedule. He verbalized understanding. Encounter Details Date Type Department Care Team (Late st Contact Info) Description 04/15/2025 Refill [facility] MEDICINE [address] [place], [place] [phone] Andreea Porter NP [address] [place] [address] Social History Tobacco Use Types Packs/Day Years [...] encounter Miscellaneous Notes * Telephone Encounter - Marjorie Segura [place] - 04/16/2025 10:56 AM EST The patient requested a letter, to be excused from having to do community service for four months, while he undergoes treatment for latent TB. I informed him that the request has been denied, becausethe treatment should not affect his work schedule. He verbalized understanding. documented in this encounter Plan of Treatment Upcoming Encounters Date Type Department Care Team (Late st Contact Info) Description 05/02/2025 9:00 AM EST Office Visit [facility] ADULT DENTAL [address] [place] [address] Marine Stern, DDS [address] [place] [address] 05/27/2025 2:30 PM EST Office Visit [facility] MEDICINE [address] [place] [address] Andreea Porter NP [address] [place] [address] 07/18/2025 2:15 PM EST Office Visit [facility] ADULT DENTAL [address] [place] [address] Baljeet Dooleyaris [address] [place] [address] documented as of this encounter Visit Diagnoses Not on filedocumented in this encounter Additional Health Concerns Assessment Noted Time PHQ-9 Depression Total Score: 0 01/26/20 25 10:45 AM EDT documented as of this encounter Care Teams Assistant Coach Relationship Specialty Start Date End Date Andreea Porter NP [address] [place] [address] PCP - General Family Medicine 02/14/24 documented as of this encounter
--- OUTSIDE RECORDS SUMMARY | 2025-04-22 11:31 | XMS_ITS | Encounter Summary ---
Author Organization [employer] Address [address] [facility] 7t [place] [address] Care Team Providers Care Coloring Checker Name Role Phone Andreea Porter NP Primary Care Provider [phone] Reason for Visit * Reason Comments Med Refill Encounter Details Date Type Department Care Team ([facility] st Contact Info) Description 02/10/2025 Refill [facility] MEDICINE [address] [place] [address] Andreea Porter NP [address] [place] [address] Social History Tobacco Use Types Packs/Day Years [...] your housing situation today? I have hugh sing 01/25/[address] you li [...] Description 05/02/2025 9:00 AM EST Office Visit [facility] ADULT DENTAL [address] [place] [address] Fontenot-Marine Farias, DDS [address] [place] [address] 05/27/2025 2:30 PM EST Office Visit [facility] MEDICINE [address] [place] [address] Andreea Porter NP [address] [place] [address] 07/18/2025 2:15 PM EST Office Visit [facility] ADULT DENTAL [address] [place] [address] Soumya, Natalie [address] [place] [address] documented as of this encounter Visit Diagnoses Not on filedocumented in this encounter Additional Health Concerns Assessment Noted Time PHQ-9 Depression Total Score: 0 01/26/20 25 10:45 AM EDT documented as of this encounter Care Teams Coloring Checker Relationship Specialty Start Date End Date Andreea Porter NP [address] [place] [address] PCP - General Family Medicine 02/14/24 documented as of this encounter
--- OUTSIDE RECORDS SUMMARY | 2025-04-22 11:31 | XMS_ITS | Encounter Summary ---
Author Organization [employer] Address [address] [place] [address] 7t [place] [address] Care Team Providers Care Cattle Tester Name Role Phone Hailey Harrington Primary Care Provider [phone] Andreea Porter NP Primary Care Provider [phone] Reason for Referral * Consultation (Routine) - Closed Specialty Diagnoses / Procedures Referred By Contaysha t Referred To Contact Infectious Diseases Diagnoses Positive QuantiFERON-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 Hailey Harrington FNP [address] [place] [address] Phone: tel: fax: Referral ID Status Reason Start Date Expiration Date V isits Requested Visits Authorized [id number] Closed Specialty Services Required 02/12/2024 02/11/2025 1 1 Encounter Details Date Type Department Care Team (Late st Contact Info) Description 02/12/2024 Orders Only [facility] CHC MED & PEDS [address] [place] [address] Hailey Harrington FNP [address] [place] [address] Positive QuantiFERON-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 (Primary Dx); Hypertriglyceridemia Social History Tobacco Use Types Packs/Day Years Used Date Smoking Tobacco: Former Cigarettes Q uit: 04/19/2022 Passive Smoke Exposure: Past Smokeless Tobacco: Never Alcohol Use Standard Drinks/Week Comments Yes 0 (1 standard drink = 0.6 oz pur e alcohol) socially Depression Answer Date Recorded Patient Health Questionnaire-9 Score 0 12/28/2023 Patient Health Questionnaire-9 Score 0 12/28/2023 Last PHQ-9: Questionnaire Data Not on file 0 12/28/2023 Depression Answer Date Recorded Patient Health Questionnaire-2 Score 0 12/28/2023 Sex and Gender Information Value Date Recorded [...] Description 05/02/2025 9:00 AM EST Office Visit [facility] ADULT DENTAL [address] [place] [address] Fontenot-Farias, Marine, DDS [address] [place] [address] 05/27/2025 2:30 PM EST Office Visit [facility] MEDICINE [address] [place] [address] Appram, Andreea, CLINICAL PROVIDER TRAINER [address] [place] [address] 07/18/2025 2:15 PM EST Office Visit [facility] ADULT DENTAL [address] [place] [address] Soumya, Natalie [address] [place] [address] Scheduled Orders Name Type Priority Associated Diagnoses Orde r Schedule XR Chest 2 Views Imaging Routine Positive QuantiFERON-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 Expected: 02/12/2024, Expires: 02/11/2025 Potassium Lab Routine Hypertriglyceridemia Expected: 02/13/2024, Expires: 02/12/2025 Scheduled Referrals Name Type Priority Associated Diagnoses Orde r Schedule Referral to TB Clinic Outpatient Referral Routine Positive QuantiFERON-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 Expected: 02/12/2024 (Approximate), Expires: 02/11/2025 documented as of this encounter Procedures Procedure Name Priority Date/Time Associated Diagnosis Comments LIPID PANEL, STANDARD Routine 11/26/2024 11:03 AM EDT Hypertriglyceridemi a documented in this encounter Results * (ABNORMAL) Lipid Panel, Standard (11/26/2024 11:03 AM EDT) Triglycerides 190(H) <150 mg/dL [facility] Comment:Desirable Triglyceri de: less than 150 mg/dLBorderline High Triglyceride 150-199 mg/dLHigh Triglyceride: 200-499 mg/dLVery High Triglyceride: greater than or equal to 5OO mg/dL Cholesterol 208(H) <200 mg/dL [facility] Comment:Desirable Cholestero l: less than 200 mg/dLBorderline High Cholesterol: 200-239 mg/dLHigh Cholesterol: greater than 239 mg/dL LDL Cholesterol Calculated 128(H) <100 mg/dL [facility] Comment:Desirable LDL: less than 100 mg/dLNear Optimal/Above Optimal LDL: 110- 129 mg/dLBorderline High LDL: 130-159 mg/dLHigh LDL: 160-189 mg/dLVery High LDL: greater than or equal to 190 mg/dL HDL Cholesterol 42 >40 mg/dL [facility] Comment:Desirable HDL: great er than 40 mg/dL Note: This HDL assay may give artificially low results in patients with liver disease. Blood Venous blood specimen / Unknown 11/26/2024 11:03 AM EDT 11/26/2024 1:14 PM EDT Hailey [facility] BLOOD ORDERABLES Final Resu lt [facility] [address] [place] [phone] documented in this encounter Visit Diagnoses Diagnosis Positive QuantiFERON-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- Primary Hypertriglyceridemia Pure hyperglyceridemia documented in this encounter Additional Health Concerns Assessment Noted Time PHQ-9 Depression Total Score: 0 12/28/19 24 2:20 PM EDT documented as of this encounter Care Teams Cattle Tester Relationship Specialty Start Date End Date Hailey Harrington FNP [address] [place] [address] PCP - General Family Medicine 01/17/24 02/13/24 Andreea Porter NP [address] [place] [address] PCP - General Family Medicine 02/14/24 documented as of this encounter
--- OUTSIDE RECORDS SUMMARY | 2025-04-22 11:31 | XMS_ITS | Encounter Summary ---
Author Organization [employer] Address [address] [facility] 7t [place] [address] Care Team Providers Care Clerical Methods Analyst Name Role Phone AnselmoAlbertoaaron Michaud HOOKER UP Primary Care Provider Chantale Hailey Messer HOOKER UP Primary Care Provider [phone] Hailey Harrington HOOKER UP Primary Care Provider [phone] Andreea Porter NP Primary Care Provider [phone] Encounter Details Date Type Department Care Team (Late Contact Info) Description 08/09/[address] [facility] CHC MED & PEDS [address] [place] [address] Bronwyn Amezcua LPN Social History Tobacco Use Types Packs/Day Years Used Date Smoking Tobacco: Former Cigarettes Q uit: 04/19/2022 Passive Smoke Exposure: Past Smokeless Tobacco: Never Sex and Gender Information Value Date Recorded Sex Assigned at Male 04/12/2022 10:31 AM EDT Legal Sex Male 10:31 AM EDT Gender Identity Male 04/12/2022 10:31 AM EDT Sexual Orientation Choose not to disclose 2021 10:31 AM EDT COVID-19 Exposure Response Date Recorded In the last 10 days, have yo u been in contact with someone who was confirmed or suspected to have Coronavirus/COVID-19? No / Unsure 08/06/2022 11:02 AM EST documented as of this encounter Plan of Treatment Upcoming Encounters Date Type Department Care Team (Late st Contact Info) Description 05/02/2025 9:00 AM EST Office Visit [facility] ADULT DENTAL [address] [place] [address] Fontenot-Farias, Marine, DDS [address] [facility] [place] [address] 05/27/2025 2:30 PM EST Office Visit [facility] [address] [facility] [place] [address] Andreea Porter NP [address] [place] [address] 07/18/2025 2:15 PM EST Office Visit [facility] ADULT DENTAL [address] [place] [address] Soumya Natalie [address] [place] [address] documented as of this encounter Visit Diagnoses Not on filedocumented in this encounter Care Teams Clerical Methods Analyst Relationship Specialty Start Date End Date Valeria Briones FNP PCP - General Family Medicine 12/08/21 12/19/22 [place] [address] PCP - General Family Medicine 12/20/22 01/16/24 [place] [address] PCP - General Family Medicine 01/17/24 02/13/24 [place] [address] PCP - General Family Medicine 02/14/24 documented as of this encounter
--- OUTSIDE RECORDS SUMMARY | 2025-04-22 11:31 | XMS_ITS | Clinical Summary ---
Author Organization [employer] Address [address] [place] [address] Care Team Providers Care Front Desk Admin Name Role Phone Andreea Porter NP Primary Care Provider [phone] Allergies Active Allergy Reactions Criticality Noted Date Comments Lisinopril 11/27/2020 Other reaction(s): Male erectile disorder Medications amLODIPine (Norvasc) 5 MG tablet Take 1 tablet (5 mg) by mouth in the morning. 90 tablet 3 12/28/19 24 Active atorvastatin (Lipitor) 40 MG tabletIndications :Mixed hyperlipidemia Take 1 tablet (40 mg) by mouth at bedtime. 90 tablet 3 12/28/19 24 Active hydroCHLOROthiazi de (HYDRODiuril) 50 MG tablet Take 1 tablet (50 mg) by mouth in the morning. 90 tablet 3 12/28/19 24 Active apremilast (Otezla) 10 & 20 & 30 MG tablet therapy pack tablet therapy pack Use as prescribed bid \Do not crush, chew, or split tablets. 55 each 11/27/19 25 Active Blood Pressure Monitoring (Blood Pressure Cuff) misc Use daily as prescribed 1 each 11/28/19 25 Active halobetasol (UltraVATE) 0.05 % ointmentIndicatio ns:Psoriasis Apply topically 2 times daily. APPLY 1 GRAM TOPICALLY TO AFFECTED AREA(S) TWICE DAILY 50 g 2 01/26/20 25 Active acetaminophen (Tylenol 8 Hour) 650 MG ER tabletIndications :Pain, dental Take 1 tablet (650 mg) by mouth every 8 (eight) hours if needed for mild pain. Do not crush, chew, or split. 30 tablet 04/17/20 25 Active ibuprofen 600 MG tabletIndications :Pain, dental Take 1 tablet (600 mg) by mouth 3 times daily. 30 tablet 04/17/20 Active amoxicillin (Amoxil) 500 MG capsuleIndication s:Pain, dental Take 1 capsule (500 mg) by mouth every 8 (eight) hours for 7 days. 21 capsule 04/17/20 25 2024 Active acetaminophen (Tylenol 8 Hour) 650 MG ER tabletIndications :Pain, dental,Dental calculus,Missing teeth, acquired Take 1 tablet (650 mg) by mouth every 8 (eight) hours if needed for mild pain. Do not crush, chew, or split. 30 tablet 01/15/20 25 2024 Discontinued ibuprofen 600 MG tabletIndications :Pain, dental,Dental calculus,Missing teeth, acquired Take 1 tablet (600 mg) by mouth 3 times daily. 30 tablet 01/15/20 25 2024 Discontinued Active Problems Problem Noted Date Diagnosed Date Class 1 obesity due to exces s calories with serious comorbidity and body mass index (BMI) of 32.0 to 32.9 in adult 01/25/2025 Assessment & Plan (01/25/2025 4:47 PM EDT): Dietary Recommendations: Fruits, vegetables, whole grains, protein foods, and fat-free or low-fat dairy products are healthy choices. Eat different types of protein foods in your diet. This can include seafood, lean meats, poultry, beans, peas, lentils, nuts, seeds, soy products, and eggs. Limit foods and beverages higher in added sugars, saturated fat, and sodium. Exercise Recommendations: At least 150 minutes of moderate-intensity physical activity per week, or an equivalent combination of moderate- and vigorous-intensity activity Pain, dental 01/14/2025 Assessment & Plan (01/14/2025 3:07 PM EDT): Orders: acetaminophen (Tylenol 8 Hour) 650 MG ER tablet; Take 1 tablet (650 mg) by mouth every 8 (eight) hours if needed for mild pain. Do not crush, chew, or split. ibuprofen 600 MG tablet; Take 1 tablet (600 mg) by mouth 3 times daily. amoxicillin (Amoxil) 500 MG capsule; Take 1 capsule (500 mg) by mouth every 8 (eight) hours for 7 days. Dental calculus 01/14/2025 Assessment & Plan (01/14/2025 3:07 PM EDT): Orders: acetaminophen (Tylenol 8 Hour) 650 MG ER tablet; Take 1 tablet (650 mg) by mouth every 8 (eight) hours if needed for mild pain. Do not crush, chew, or split. ibuprofen 600 MG tablet; Take 1 tablet (600 mg) by mouth 3 times daily. Missing teeth, acquired 01/14/2025 Assessment & Plan (01/14/2025 3:07 PM EDT): Orders: acetaminophen (Tylenol 8 Hour) 650 MG ER tablet; Take 1 tablet (650 mg) by mouth every 8 (eight) hours if needed for mild pain. Do not crush, chew, or split. ibuprofen 600 MG tablet; Take 1 tablet (600 mg) by mouth 3 times daily. amoxicillin (Amoxil) 500 MG capsule; Take 1 capsule (500 mg) by mouth every 8 (eight) hours for 7 days. Pain of gingiva 01/14/2025 Stage 2 grade B generalized periodontitis per AAP/EFP 2017 classification 01/14/2025 Assessment & Plan (01/14/2025 3:07 PM EDT): SRP to be prior autho. [id number] for all 4 quads. Gingival bleeding 01/14/2025 Acute gingival inflammation 01/14/2025 History of primary TB 11/27/2024 Assessment & Plan (11/27/2024 8:15 PM EDT): Reportedly treated more than 20 years ago. Order CXR and compared to previous CXR. No S/S acute TB at this time Referred to TB clinic at [facility] as he may need to be cleared for potentially be started in immunomodulators and HCV treatment. HCV antibody positive 11/27/2024 Assessment & Plan (01/25/2025 4:47 PM EDT): -informed viral load undetectable based on labs completed 11/2024 Assessment & Plan (11/27/2024 8:20 PM EDT): On 2023, he thinks he was told few years ago. He has never been treated. Check viral load and follow-up with PCP, he is agreeable to treatment if needed. Essential hypertension 01/28/2023 Assessment & Plan (01/25/2025 4:44 PM EDT): -reports med compliance with hydrochlorothiazide 50 mg and amlodipine 5 mg -BP at goal of <130/80 mmHg -discussed at length CV risk associated with hypertension and elevated lipids with poor lifestyle changes Assessment & Plan (11/27/2024 8:22 PM EDT): She has been off medication for more than 3 months now. Advised to check BP at home 3 times per week and follow-up with PCP, may need to be restarted on meds, lower dose of HCTZ?/ARB? Reconsult as needed if he develops chest pain, DAWN, weakness. Mixed hyperlipidemia 01/28/2023 Assessment & Plan (01/25/2025 4:46 PM EDT): Images from the original note were not included. -continue current statin regimen -diet and lifestyle changes discussed Tendinitis of right elbow 03/08/2022 Heel pain 09/26/2018 Psoriasis 03/03/2018 Assessment & Plan (01/25/2025 4:50 PM EDT): -refill for topical ointment provided -stat referral to derm clinic for consideration of systemic management Assessment & Plan (11/27/2024 8:14 PM EDT): He will restart Otezla starter pack at 10 mg 0 mg in the morning on day 1. Titrate upward as recommended on starter pack. Given history of HCV and TB, other immuno modulators are probably contraindicated, Otezla is a safe choice and patient has tolerated it in the past. Referred to TB clinic for further evaluation due to potentially need other medications that require ID clearance. Continue clobetasol cream Refer to dermatology Eczema 02/16/2017 Opioid dependence 01/12/2017 Encounters Date Type Department Care Team Description 04/17/2025 11:30 AM EST Office Visit [facility] [address], [place] [address] Casey Cano DDS Pain, dental (Primary Dx) 04/15/2025 Refill [facility] V[address], [place] Craft [phone] Andreea Porter NP 04/10/2025 3:00 PM EDT Office Visit [facility] [address], [place] [address] Lefty Zaldivar Abfraction (Primary Dx) 03/26/2025 Telephone [facility] [place] [address] Andreea Porter NP May03/25/2025 Results Follow-Up [facility] [address], [place] [phone] Andreea Porter NP T-SPOT .TB 03/20/2025 Telephone [facility] [place] [phone] Andreea Porter NP Medical Records Request (I called per the forms nurse, to get more information on where the patient received treatment for TB, so that the records could be requested. He stated that he received treatment at [facility] in [facility]. He does not know the address, and is not sure if the facility is still in operation. He informed me that he was seen at the TB Clinic at [facility], and is waiting for a call from them, so that he could restart treatment.) 03/15/2025 11:00 AM EDT Office Visit [facility] Varsha [address], [place] Craft [phone] Natalie Dooley Stage 2 grade B generalized periodontitis per AAP/EFP 2017 classification (Primary Dx); Dental calculus 03/15/2025 Abstract [facility] Varsha [address], [place] Craft [phone] Andreea Porter NP Screening for tuberculosis (Primary Dx) 03/08/2025 9:00 AM EDT Office Visit [facility] [address], [place] [address] Natalie Dooley Dental calculus (Primary Dx); Stage 2 grade B generalized periodontitis per AAP/EFP 2017 classification; Abfraction 02/10/2025 Refill [facility] [address] [place] [address] Andreea Porter NP 02/06/2025 Orders Only [facility] [address] [place] [address] Andreea Porter NP Psoriasis (Primary Dx) 02/06/2025 Telephone [facility] [address] [place] [phone] Andreea Porter NP Referral (PT explains pcp gave referral to dermatology but hasn't been called he's asking to be given another outside referral to be able to be seen at [facility] in [place]. ) 01/25/2025 10:15 AM EDT Office Visit [facility] [address] [place] [phone] Andreea Porter NP HCV antibody positive (Primary Dx); Dietary counseling; Exercise counseling; Class 1 obesity due to excess calories with serious comorbidity and body mass index (BMI) of 32.0 to 32.9 in adult; Psoriasis; Essential hypertension; Mixed hyperlipidemia 01/25/2025 Travel 01/24/2025 Telephone [facility] [address] [place] [phone] Padmini Borden [place] CHARTPREP from Last 3 Months Immunizations Immunization Administration Dates Next Due Influenza injectable quadriv alent preservative free 03/19/2022 Moderna Covid-19 Vaccine 12+ 11/12/2020, 10/30/2020,10/14/2020,2020 Tdap 03/01/2022 Family History Medical History Relation Name Comments Heart attack Father Diabetes type II Mother Relation Name Status Comments Father Mother Social History Tobacco Use Types Packs/Day Years Used Date Smoking Tobacco: Former Cigarettes Q uit: 04/19/2022 Passive Smoke Exposure: Past Smokeless Tobacco: Never Tobacco Cessation:Counseling Given: Not Answered Alcohol Use Standard Drinks/Week Comments Yes 0 [...] not to disclose 2021 10:31 AM EDT Last Filed Vital Signs Vital Sign Reading Time Taken Comments Blood Pressure 130/72 04/10/2025 2:40 PM EDT Pulse 84 01/25/2025 10:43 AM EDT Temperature 37.1 C (98.8 F) 01/25/2025 10:43 AM EDT Respiratory Rate 22 01/25/2025 10:43 AM EDT Oxygen Saturation 96% 01/25/2025 10:43 AM EDT Inhaled Oxygen Concentration - - Weight 113 kg (249 lb 9.6 oz) 01/25/2025 10:43 A M EDT Height 188 cm (6' 2 ) 01/25/2025 10:43 AM EDT Body Mass Index 32.05 01/25/2025 10:43 AM EDT Plan of Treatment Upcoming Encounters Date Type Department Care Team (Late st Contact Info) Description 05/02/2025 9:00 AM EST Office Visit [facility] [address] [place] [address] MattMarine flores, DDS [address] [place] [address] 05/27/2025 2:30 PM EST Office Visit [facility] [address] [place] [address] Andreea Porter, SHOE PULLER [address] [place] [address] 07/18/2025 2:15 PM EST Office Visit [facility] [address] [place] [address] Baljeet Dooleyaris [address] [place] [address] Health Maintenance Due Date Last Done Comments Anal Pap 1970 CT Colonography 1970 Colonoscopy 1970 Colorectal Cancer Screening 1970 FIT DNA/Cologuard 1970 FIT 1970 FOBT 1970 Sigmoidoscopy 1970 Hepatitis A Vaccines (1 of 2 - Risk 2-dose series) 1989 Hepatitis B Vaccines (1 of 3 - 19+ 3-dose series) 1989 Pneumococcal Vaccine: 50+ Years (1 of 1 - PCV) 2020 Zoster Vaccines (1 of 2) 2020 COVID-19 Vaccine ( - 2024- season) 2025 03/19/2022, 11/12/2020, 10/30/2020, Additional history exists Influenza Vaccine (#1) 2025 03/19/2022 Dental Oral Exam 07/18/2025 01/14/2025 Dental Prophylaxis 07/18/2025 01/14/2025 Dental X-Ray: Bitewings 01/15/2026 01/14/2025 Alcohol/Substance Use Screening 01/25/2026 01/25/2025 Depression Screening 01/25/2026 01/25/2025, 01/26/20 Disability Screening 01/25/2026 01/25/2025 SDOH Screening 01/25/2026 01/25/2025 Tobacco Screening 04/17/2026 04/17/2025 Dental X-Ray: Full Mouth 01/16/2028 01/14/2025 Lipid Panel 11/26/2029 11/26/2024, 12/12, 01/06/2024, Additional history exists DTaP/Tdap/Td Vaccines (2 - Td or Tdap) 03/01/2032 03/01/2022 RSV Patients and Patients Aged 60 years or older (1 - 1-dose 75+ series) 2045 HIV Screening Completed 11/26/2024, 10/30/2020 Hepatitis C Screening Completed 11/26/2024 , 01/06/2024, 10/30/2020 HIB Vaccines Aged Out No longer eligi ble based on patient's age to complete this topic HPV Vaccines Aged Out No longer eligi ble based on patient's age to complete this topic IPV Vaccines Aged Out No longer eligi ble based on patient's age to complete this topic Meningococcal B Vaccine Aged Out No l onger eligible based on patient's age to complete this topic Meningococcal Vaccine Aged Out No mady concepcion eligible based on patient's age to complete this topic RSV under 20 months Aged Out No longe r eligible based on patient's age to complete this topic Rotavirus Vaccines Aged Out No longer eligible based on patient's age to complete this topic Procedures Procedure Name Priority Date/Time Associated Diagnosis Comments CASE PRESENTATION, DETAILED AND EXTENSIVE TREATMENT PLANNING Routine 04/17/2025 11:30 AM EST INTRAORAL - PERIAPICAL FIRST RADIOGRAPHIC IMAGE Routine 04/17/2025 11:30 AM EST LIMITED ORAL EVALUATION - PROBLEM FOCUSED Routine 04/17/2025 11:30 AM EST 4 B(V) RESIN-BASED COMPOSITE - 1 SURF, POSTERIOR Routine 04/10/2025 3:00 PM EDT Abfraction T-SPOT(R).TB Routine 03/21/2025 10:48 AM EDT Screening for tuberculosis CASE PRESENTATION, DETAILED AND EXTENSIVE TREATMENT PLANNING Routine 03/15/2025 11:00 AM EDT Stage 2 grade B generalized periodontitis per AAP/EFP 2017 classification Dental calculus LL PERIODONTAL SCALING AND ROOT PLANING - 4 OR MORE TEETH PER QUADRANT Routine 03/15/2025 11:00 AM EDT Stage 2 grade B generalized periodontitis per AAP/EFP 2017 classification Dental calculus UL PERIODONTAL SCALING AND ROOT PLANING - 4 OR MORE TEETH PER QUADRANT Routine 03/15/2025 11:00 AM EDT Stage 2 grade B generalized periodontitis per AAP/EFP 2017 classification Dental calculus LIMITED ORAL EVALUATION - PROBLEM FOCUSED Routine 03/08/2025 9:00 AM EDT INTRAORAL - PERIAPICAL FIRST RADIOGRAPHIC IMAGE Routine 03/08/2025 9:00 AM EDT LR PERIODONTAL SCALING AND ROOT PLANING - 4 OR MORE TEETH PER QUADRANT Routine 03/08/2025 9:00 AM EDT Dental calculus Stage 2 grade B generalized periodontitis per AAP/EFP 2017 classification UR PERIODONTAL SCALING AND ROOT PLANING - 4 OR MORE TEETH PER QUADRANT Routine 03/08/2025 9:00 AM EDT Dental calculus Stage 2 grade B generalized periodontitis per AAP/EFP 2017 classification CASE PRESENTATION, DETAILED AND EXTENSIVE TREATMENT PLANNING Routine 03/08/2025 9:00 AM EDT Dental calculus Stage 2 grade B generalized periodontitis per AAP/EFP 2017 classification PROPHYLAXIS - ADULT Routine 01/14/2025 2 :00 PM EDT Stage 2 grade B generalized periodontitis per AAP/EFP 2017 classification Dental calculus Pain of gingiva Gingival bleeding Acute gingival inflammation INTRAORAL - COMPLETE SERIES OF RADIOGRAPHIC IMAGES Routine 01/14/2025 2:00 PM EDT Stage 2 grade B generalized periodontitis per AAP/EFP 2017 classification Dental calculus Missing teeth, acquired Pain of gingiva Gingival bleeding Acute gingival inflammation PERIODIC ORAL EVALUATION - ESTABLISHED PATIENT Routine 01/14/2025 1:00 PM EDT HEPATITIS C VIRAL RNA, QUANTITATIVE, REAL-TIME PCR Routine 11/26/2024 11:03 AM EDT Psoriasis History of primary TB HIV 1/2 ANTIGEN/ANTIBODY, FOURTH GENERATION W/RFL Routine 11/26/2024 11:03 AM EDT Psoriasis History of primary TB LIPID PANEL, STANDARD Routine 11/26/2024 11:03 AM EDT Hypertriglyceridemia from Last 3 Months or Most Recently Relevant to Health Maintenance Results * (ABNORMAL) T-SPOT??.TB (03/21/2025 10:48 AM EDT) T Spot TB Positive( A) Negative [facility] Comment: Diagnosing or excluding tuberculosis (TB) disease andassessing the probability of latent TB infection (LTBI)requires a combination of epidemiological, historical,medical and diagnostic findings that should be takeninto consideration when interpreting T-SPOT.TB testresults. A positive test result does not rule in activeTB disease caused by Mycobacterium tuberculosis(M. tuberculosis); active TB disease should beconfirmed by other tests such as sputum smear andculture, PCR, and chest radiography.Uncommonly, a positive T-SPOT.TB result may be due toinfection with other Mycobacterium species includingM. kansasii, M. szulgai, M. gordonae, or M. marinum.Alternative tests would be required if these infectionsare suspected.The T-SPOT.TB test is qualitative and results arereported as positive, borderline, or negative, giventhat the test controls perform as expected. In linewith the Centers for Disease Control and Prevention's2010 recommendation to report quantitative measurementsalongside the qualitative result, the laboratoryprovides spot counts for informational purposes only.The T-SPOT.TB test should not be interpreted as aquantitative test. TS PANEL A 15 [facility] TS PANEL B 42 [facility] Negative Control Passed [facility] Positive Control Passed [facility] Comment:For additional infor matsunny, please refer tohttp://education.Enersave/faq/WXO488(This link is being provided for informational/educational purposes only.)THIS TEST WAS PERFORMED AT:[employer] [id number] [place] [id number] PORTILLO MD,PHD 03/21/2025 10:4 8 AM EDT 03/21/2025 1:29 PM EDT us Andreea Porter NP LAB BLOOD ORDERABLES Final Resu lt [facility] [address] [place] [address] [phone] * Hepatitis C Viral RNA, Quantitative, Real-Time PCR (11/26/2024 11:03 AM EDT) Pathologist [facility] Hepatitis C Viral Load <15 NOT DETECTED NOT DETECTED IU/mL [facility] HCV Log PCR <1.18 NOT DETECTED NOT DETECTED Log IU/mL [facility] Comment:For additional infor luissunny, please refer tohttp://education.Enersave/faq/HHW44v2(This link is being provided for informational/educational purposes only.)THIS TEST WAS PERFORMED AT:[employer] [place] [id number] LOPEZ MD Blood 11/26/2024 11:0 3 AM EDT 11/26/2024 1:00 PM EDT Clara Kohler MD LAB BLOOD ORDERABLES Fin al Result [facility] [address] [place] [address] [phone] * HIV-1/2 Antigen and Antibodies, Fourth Generation, with Reflexes (11/26/2024 11:03 AM EDT) [facility] HIV AB/AG Nonreactive Nonreactive [facility] Comment:HIV-1 p24 Ag and/or HIV-1/HIV-2 Ab not detected.A test result that is nonreactive does not exclude thepossibility of exposure to or infection with HIV-1 and/orHIV-2. Nonreactive results in this assay for individualswith prior exposure to HIV-1 and/or HIV-2 may be due toantigen and antibody levels that are below the limit ofdetection of this assay.The [facility] HIV Ag/Ab Combo assay result andsupplemental assay results should be interpreted inconjunction with the patient's clinical presentation,history and other laboratory results. If the results areinconsistent with clinical evidence, additional testing issuggested to confirm the result. Blood Venous blood specimen / Unknown 11/26/2024 11:03 AM EDT 11/26/2024 1:14 PM EDT us Clara Kohler MD LAB BLOOD ORDERABLES Fin al Result Performing Organization Address City/[facility]/ZIP Co de Phone Number [facility] [address] [place] [address] [phone] * (ABNORMAL) Lipid Panel, Standard (11/26/2024 11:03 AM EDT) Triglycerides 190(H) <150 mg/dL [facility] Comment:Desirable Triglyceri de: less than 150 mg/dLBorderline High Triglyceride 150-199 mg/dLHigh Triglyceride: 200-499 mg/dLVery High Triglyceride: greater than or equal to 5OO mg/dL Cholesterol 208(H) <200 mg/dL [facility] Comment:Desirable Cholestero l: less than 200 mg/dLBorderline High Cholesterol: 200-239 mg/dLHigh Cholesterol: greater than 239 mg/dL LDL Cholesterol Calculated 128(H) <100 mg/dL [facility] Comment:Desirable LDL: less than 100 mg/dLNear Optimal/Above Optimal LDL: 110- 129 mg/dLBorderline High LDL: 130-159 mg/dLHigh LDL: 160-189 mg/dLVery High LDL: greater than or equal to 190 mg/dL HDL Cholesterol 42 >40 mg/dL [facility] Comment:Desirable HDL: great er than 40 mg/dL Note: This HDL assay may give artificially low results in patients with liver disease. Blood Venous blood specimen / Unknown 11/26/2024 11:03 AM EDT 11/26/2024 1:14 PM EDT us Hailey PADILLAP LAB BLOOD ORDERABLES Final Resu lt [facility] [address] [place] [address] [phone] from Last 3 Months or Most Recently Relevant to Health Maintenance Insurance [place] [facility] MEDICAID STAND ADULT Care Teams Front Desk Admin Relationship Specialty Start Date End Date Andreea Porter NP [address] [place] [address] PCP - General Family Medicine 02/14/24
--- OUTSIDE RECORDS SUMMARY | 2025-04-22 11:31 | XMS_ITS | Encounter Summary ---
Author Organization [employer] Address [address] [place] [address] [address] [place] [address] Care Team Providers Care Sealer Sander Name Role Phone Hailey Harrington Primary Care Provider [phone] Hailey Harrington Primary Care Provider [phone] Andreea Porter NP Primary Care Provider [phone] Reason for Visit * Reason Onset Date Comments Med Refill 07/13/2023 Encounter Details Date Type Department Care Team (Late st Contact Info) Description 07/13/2023 Telephone [facility] [address] [place] [address] Hailey Harrington FNP [address] [place] [address] Med Refill Social History Tobacco Use Types Packs/Day Years [...] encounter Miscellaneous Notes * Telephone Encounter - Bronwyn Amezcua LPN - 07/13/2023 2:19 PM EST Medication pended to PCP. * Telephone Encounter - Heath Valverde 07/13/2023 2:06 PM EST TC from pt requesting medication refill. Medications needing refill : hydroCHLOROthiazide (HYDRODiuril) 50 MG tablet To be sent to: [facility] - [place], [place] - [address] documented in this encounter Plan of Treatment Upcoming Encounters Date Type Department Care Team (Late st Contact Info) Description 05/02/2025 9:00 AM EST Office Visit [facility] [address] [place] [address] Marine Stern DDS [address] [place] [address] 05/27/2025 2:30 PM EST Office Visit [facility] [address] [place] [address] Andreea Porter NP [address] [place] [address] 07/18/2025 2:15 PM EST Office Visit [facility] [address] [place] [address] Soumya, Natalie [address] [place] [address] documented as of this encounter Visit Diagnoses Not on filedocumented in this encounter Care Teams Sealer Sander Relationship Specialty Start Date End Date Hailey Harrington FNP [address] [place] [address] PCP - General Family Medicine 12/20/22 01/16/24 Hailey Harrington FNP [address] [place] [address] PCP - General Family Medicine 01/17/24 02/13/24 Andreea Porter NP [address] [place] [address] PCP - General Family Medicine 02/14/24 documented as of this encounter
--- OUTSIDE RECORDS SUMMARY | 2025-04-22 11:31 | XMS_ITS | Encounter Summary ---
Author Organization [employer] Address [address] [place] [address] [address] [place] [address] Care Team Providers Care Lead Sharepoint Developer Name Role Phone Andreea Porter NP Primary Care Provider [phone] Reason for Referral * Consultation (Routine) - Closed Specialty Diagnoses / Procedures Referred By Contaysha t Referred To Contact Dermatology Diagnoses Psoriasis Andreea Porter NP [address] [place] [address] Phone: tel: fax: Ting Shepherd [address] [place] [address] Phone: tel: fax: Referral ID Status Reason Start Date Expiration Date V isits Requested Visits Authorized [id number] Closed Specialty Services Required 02/07/2025 02/07/2026 6 6 Encounter Details Date Type Department Care Team (Late st Contact Info) Description 02/06/2025 Orders Only [facility] [address] [place] [address] Andreea Porter NP [address] [place] [address] Psoriasis (Primary Dx) Social History Tobacco Use Types [...] Description 05/02/2025 9:00 AM EST Office Visit [facility] [address] [place] [address] Marine Stern DDS [address] [place] [address] 05/27/2025 2:30 PM EST Office Visit [facility] [address] [place] [address] Andreea Porter NP [address] [place] [address] 07/18/2025 2:15 PM EST Office Visit [facility] [address] [place], [place] [phone] Naatlie Dooley [address] [place], [place] [phone] Scheduled Referrals Name Type Priority Associated Diagnoses Order Schedule Referral to Dermatology Outpatient Referral Routine Psoriasis Expected: 02/06/2025 (Approximate), Expires: 02/06/2026 documented as of this encounter Visit Diagnoses Diagnosis Psoriasis- Primary Other psoriasis documented in this encounter Additional Health Concerns Assessment Noted Time PHQ-9 Depression Total Score: 0 01/26/20 25 10:45 AM EDT documented as of this encounter Care Teams Lead Sharepoint Developer Relationship Specialty Start Date End Date Andreea Porter NP [address] [place], [place] [phone] PCP - General Family Medicine 02/14/24 documented as of this encounter
[2025-04-22 13:35] LABS: Potassium 2.8 mmol/L (3.3-5.1)
[2025-04-25 11:48] LABS: TS Negative Control Passed; TS Panel A 14; TS Panel B 41; TS Positive Control Passed; TSpotTB Positive (Negative)
== END 2025-04-22 09:59 | disposition home or self-care (01) ==
LOC: HO.HHCL 09:58
PROVIDERS: Nurse Practitioner Family; PCP Nurse Practitioner; Visit Provider Internal Medicine Pulmonary Disease
DX: E78.1 Pure hyperglyceridemia (principal); Z22.7 Latent tuberculosis
CPT/HCPCS: 36415; 84132; 86481

== ENCOUNTER 2025-04-23 08:31 | Emergency (ER) | payer OTHER, SELFPAY ==
[2025-04-23 08:33] VITALS: BP 159/89; PULSE 75; RESP 20; TEMP 36.2; O2SAT 95; BMI 33.4
[2025-04-23 08:56] LABS: MANUAL DIFF FLAG NO
[2025-04-23 08:58] LABS: Hematocrit 43.6 % (42.0-52.0); Hemoglobin 15.0 g/dl (14.0-18.0); Imm Gran Abs Auto 0.03 X10*3/uL (0.00-0.03); Imm Gran Pct Auto 0.3 % (0.0-0.4); Lymphocytes Absolute Auto 1.8 X10*3/uL (1.2-4.9); Mean Corpuscular HGB Conc 34.4 g/dl (31.0-36.0); Mean Corpuscular Hemoglobin 28.6 pg (27.0-33.0); Mean Corpuscular Volume 83.0 fL (80.0-98.0); NRBC Abs Auto 0.000 X10*3/uL (0.0-0.012); NRBC Pct Auto 0.0 /100WBC (0.0-0.2); Platelet Count 170 X10*3/uL (160-400); Red Blood Count 5.25 X10*6/uL (4.60-5.80); White Blood Count 8.8 X10*3/uL (4.8-10.8)
[2025-04-23 09:15] LABS: Anion Gap 14 (12-20); Blood Urea Nitrogen 16 mg/dL (9-16); Calcium 9.5 mg/dL (8.4-10.2); Carbon Dioxide 28 mmol/L (22-29); Chloride 101 mmol/L (96-108); Creatinine Clr Calc Pharmacy 122.6; Estimated Glomerular Filt Rate > 60; Magnesium 2.0 mg/dL (1.6-2.6); Sodium 140 mmol/L (135-145)
[2025-04-23 09:22] LABS: Potassium 2.8 mmol/L (3.3-5.1)
--- NOTE | 2025-04-23 09:57 | ED.GENADULT ---
HPI - General Adult General Chief complaint: Recheck/Abnormal Lab/Rx Stated complaint: Low potassium per pcp Time Seen by Provider: 04/23/25 08:46 History of Present Illness ED Provider: Dr. Phipps HPI narrative: 54 y/o M patient; PMH arthritis; presents from home on recommendation of primary doctor for low potassium. The patient denies other medical complaints. He states he is currently on TB medication. He does not have active TB but plans to have an inject for psoriasis and needs to be pre-treated for TB first. He has monthly labs to check his liver function while on the TB medication, lab work was done yesterday. Related Data Previous Rx's ?Medication ?Instructions ?Recorded cyclobenzaprine 10 mg tablet 10 mg PO TID PRN muscle spasm #20 11/10/21 tabs naproxen 500 mg tablet 500 mg PO BID PRN pain #30 tabs 11/10/21 bacitracin 500 unit/gram topical 1 appl topical Q8H 8 days #28 grams 03/01/22 ointment naproxen 500 mg tablet 500 mg PO BID PRN pain 10 days #20 03/01/22 tabs prednisone 20 mg tablet 60 mg (3 x 20 mg) PO DAILY 5 days 03/01/22 #15 tabs methocarbamol 750 mg tablet 750 mg PO TID PRN pain #20 tabs 01/11/23 naproxen 500 mg tablet (Naprosyn) 500 mg PO BID PRN pain #30 tabs 01/11/23 meloxicam 7.5 mg tablet 7.5 mg PO DAILY #10 tabs 04/15/23 Allergies Allergy/AdvReac Type Severity Reaction Status Date / Time No Known Allergies (No Known Allergy Verified 04/23/25 08:36 Allergies*) Review of Systems Review of Systems: Yes all other systems are reviewed and are negative PMFSH Past Medical History Attestation statement: The following information was validated with the patient. Source: old records reviewed Social History Social History Alcohol intake: never Use of substances other than those prescribed or required for medical reasons: Yes Substance Use Type: Marijuana Substance Use Frequency: Occasionally Advance Directives: No Advance Directives Information Provided: Yes Do you have a plan to hurt others: No Plan Physical Exam ED Vital Signs: Vital Signs - 24 hr 04/23/25 08:33 Temperature 97.1 F Pulse Rate 75 Respiratory Rate 20 Blood Pressure 159/89 H Pulse Oximetry 95 Oxygen Delivery Method Room Air BMI result Body Mass Index 33.4 Patient is afebrile and hemodynamically stable. Const General: cooperative and no acute distress Orientation/consciousness: patient oriented x3 HENMT Head: Yes normal to inspection and Yes atraumatic Eyes General: appearance normal, both eyes and all related structures Pupils: Equal, round and reactive pupils present EOM: EOMs intact bilaterally Neck Neck: Yes normal visual inspection, Yes full ROM, Yes supple and No tender Chest Chest palpation & inspection: normal inspection of the chest and normal palpation of entire chest wall Resp Effort & Inspection: normal respiratory effort, able to speak in complete sentences and no cough Auscultation: clear to auscultation bilaterally Cardio Rate: regular rate Rhythm: regular rhythm Peripheral pulses: Peripheral pulses 2+ throughout GI Inspection: Yes normal to inspection, No Abdominal wall edema and No distended Palpation (GI): Soft to palpation, not firm, nontender, no guarding and not rigid Auscultation: normal bowel sounds Back/Spine/Pelvis Back: No back tenderness Neuro General: patient oriented x3 Cranial nerves: Yes Equal, round and reactive pupils present Course Course Course Narrative: Patient is afebrile and hemodynamically stable. Will recheck labs including magnesium level. Labs reviewed. No significant leukocytosis. No significant anemia. Potassium is 2.8. Magnesium 2.0. Will replete potassium with PO and IV. Plan for repeat potassium level with PCP in 1 week (Sunday 04/29). Patient is aware if hypokalemia persists on lab work, may require daily potassium pills while on TB medication. Plan: Discharge to home Condition: Stable Medications Administered Discontinued Medications Generic Name Dose Route Start Last Admin Trade Name Freq PRN Reason Stop Dose Admin Potassium Chloride 10 meq in 100 mls @ 100 mls/hr 04/23/25 10:15 04/23/25 12:55 Potassium Chloride/H20 IV 04/23/25 12:14 Infused Q1H CELSO Infusion Potassium Chloride 40 meq 04/23/25 10:02 04/23/25 10:14 Potassium Chloride Packet 20 Meq Packet PO 04/23/25 10:03 40 meq ONCE ONE Administration Medical Decision Making Lab Data 04/23/25 08:47 04/23/25 08:47 Labs: Lab Results 04/23/25 Range/Units 08:47 WBC 8.8 (4.8-10.8) X10*3/uL RBC 5.25 (4.60-5.80) X10*6/uL Hgb 15.0 (14.0-18.0) g/dl Hct 43.6 (42.0-52.0) % MCV 83.0 (80.0-98.0) fL MCH 28.6 (27.0-33.0) pg MCHC 34.4 (31.0-36.0) g/dl RDW 12.2 (11.0-16.0) % Plt Count 170 (160-400) X10*3/uL MPV 11.8 (9.4-12.4) fL Immature Gran % (Auto) 0.3 (0.0-0.4) % Neut % (Auto) 69.5 (45-73) % Lymph % (Auto) 20.6 (20-40) % Manatee % (Auto) 7.5 (2-11) % Eos % (Auto) 1.5 (0-4) % Baso % (Auto) 0.6 (0-2) % Lymph # (Auto) 1.8 (1.2-4.9) X10*3/uL Man[place]e # (Auto) 0.7 (0.1-1.2) X10*3/uL Eos # (Auto) 0.1 (0.0-0.4) X10*3/uL Baso # (Auto) 0.1 (0.0-0.2) X10*3/uL Abs Immat Gran (auto) 0.03 (0.00-0.03) X10*3/uL Absolute Neuts (auto) 6.1 (2.0-8.3) x10*3/uL Absolute Nucleated RBC 0.000 (0.0-0.012) X10*3/uL Nucleated RBC % (auto) 0.0 (0.0-0.2) /100WBC Sodium 140 (135-145) mmol/L Potassium 2.8 L* (3.3-5.1) mmol/L Chloride 101 (96-108) mmol/L Carbon Dioxide 28 (22-29) mmol/L Anion Gap 14 (12-20) BUN 16 (9-16) mg/dL Creatinine 0.94 (0.5-1.4) mg/dL Estim Creat Clear Calc 122.6 Estimated GFR > 60 Random Glucose 180 H (60-115) mg/dL Calcium 9.5 (8.4-10.2) mg/dL Magnesium 2.0 (1.6-2.6) mg/dL Discharge Plan Discharge Clinical Impression: Hypokalemia Patient Disposition: Home, Self-Care Instructions: Hypokalemia (ED) Additional Instructions: You were seen today for a potassium of 2.8. You received 40mEq oral potassium and 20mEq IV potassium. Please have your primary doctor order you a repeat potassium level lab on Sunday 04/29. You may require an oral pill potassium daily if your levels remain low. You can also google potassium containing foods and try to add more of these to your diet. Hoy se le realiz? maged prueba de potasio con un nivel de 2.8. Se le administraron 40 mEq de potasio por v?a oral y 20 mEq por v?a intravenosa. Por favor, solicite a roa m?dico de cabecera que le programe maged nueva prueba de potasio para el . Si nadya niveles permanecen bajos, es posible que necesite radha potasio en pastillas diariamente. Tambi?n puede buscar en [employer] alimentos ricos en potasio e intentar incorporarlos m?s a roa dieta. Prescriptions: No Action prednisone 20 mg tablet 60 mg PO DAILY 5 Days Qty: 15 0RF naproxen 500 mg tablet 500 mg PO BID PRN (Reason: pain) 10 Days Qty: 20 0RF bacitracin 500 unit/gram ointment 1 appl topical Q8H 8 Days Qty: 28 0RF cyclobenzaprine 10 mg tablet 10 mg PO TID PRN (Reason: muscle spasm) Qty: 20 0RF naproxen 500 mg tablet 500 mg PO BID PRN (Reason: pain) Qty: 30 0RF naproxen [Naprosyn] 500 mg tablet 500 mg PO BID PRN (Reason: pain) Qty: 30 0RF methocarbamol 750 mg tablet 750 mg PO TID PRN (Reason: pain) Qty: 20 0RF meloxicam 7.5 mg tablet 7.5 mg PO DAILY Qty: 10 0RF Print Language: Danish
--- OUTSIDE RECORDS SUMMARY | 2025-04-23 10:01 | XMS_ITS | Encounter Summary ---
Author Organization [employer] Address [address] [place] [address] [address]t [place] [address] Care Team Providers Care Garland Maker Name Role Phone Hailey Harrington Primary Care Provider [phone] Hailey Harrington Primary Care Provider [phone] Andreea Porter EXTRUDER OPERATOR MULTIPLE Primary Care Provider [phone] Encounter Details Date Type Department Care Team (Late st Contact Info) Description 08/22/2023 Orders Only [facility] [address] [place] [address] Hailey Harrington FNP [address] [place] [address] Social History Tobacco Use Types Packs/Day Years [...] Care Team (Late st Contact Info) Description 04/24/2025 10:00 AM EST Office Visit [facility] [address] [place] [address] Marine Stern, DDS [address] [place] [address] 05/27/2025 2:30 PM EST Office Visit [facility] [address] [place] [address] Andreea Porter NP [address] [place] [address] 07/18/2025 2:15 PM EST Office Visit [facility] [address] [place] [address] Baljeet Dooleyaris [address] [place] [address] documented as of this encounter Visit Diagnoses Not on filedocumented in this encounter Care Teams Garland Maker Relationship Specialty Start Date End Date Hailey Harrington FNP [address] [place] [address] PCP - General Family Medicine 12/20/22 01/16/24 Hailey Harrington FNP [address] [place] [address] PCP - General Family Medicine 01/17/24 02/13/24 Andreea Porter NP [address] [place] [address] PCP - General Family Medicine 02/14/24 documented as of this encounter
--- OUTSIDE RECORDS SUMMARY | 2025-04-23 10:01 | XMS_ITS | Encounter Summary ---
Author Organization [employer] Address [address] [facility] 7t [place] [address] Care Team Providers Care Clinical Resource Manager Name Role Phone Andreea Porter NP Primary Care Provider [phone] Reason for Visit * Reason Comments Med Refill Encounter Details Date Type Department Care Team ([facility] st Contact Info) Description 02/10/2025 Refill [facility] [address] [place] [address] Andreea Porter NP [address] [place] [address] Social History Tobacco Use Types Packs/Day Years [...] Description 04/24/2025 10:00 AM EST Office Visit [facility] [address] [place] [address] Fontenot-Marine Farias, DDS [address] [place] [address] 05/27/2025 2:30 PM EST Office Visit [facility] [address] [place] [address] Andreea Porter NP [address] [place] [address] 07/18/2025 2:15 PM EST Office Visit [facility] [address] [place] [address] Soumya, Natalie [address] [place] [address] documented as of this encounter Visit Diagnoses Not on filedocumented in this encounter Additional Health Concerns Assessment Noted Time PHQ-9 Depression Total Score: 0 01/26/20 25 10:45 AM EDT documented as of this encounter Care Teams Clinical Resource Manager Relationship Specialty Start Date End Date Andreea Porter NP [address] [place] [address] PCP - General Family Medicine 02/14/24 documented as of this encounter
--- OUTSIDE RECORDS SUMMARY | 2025-04-23 10:01 | XMS_ITS | Encounter Summary ---
Author Organization [employer] Address [address] [place] [address] 7t [place] [address] Care Team Providers Care Cleaner And Dyer Name Role Phone Hailey Harrington Primary Care Provider + Hailey Harrington Primary Care Provider + Andreea Porter NP Primary Care Provider [phone] Reason for Visit * Reason Comments Med Refill Encounter Details Date Type Department Care Team (Late st Contact Info) Description 09/21/2023 Refill [facility] [address] [place] [address] Iban Yoo FNP Social History Tobacco Use [...] Description 04/24/2025 10:00 AM EST Office Visit [facility] [address] [place] [address] Marine Stern, DDS [address] [place] [address] 05/27/2025 2:30 PM EST Office Visit [facility] [address] [place] [address] Andreea Porter NP [address] [place] [address] 07/18/2025 2:15 PM EST Office Visit [facility] [address] [place] [address] Baljeet Dooleyaris [address] [place] [address] documented as of this encounter Visit Diagnoses Not on filedocumented in this encounter Care Teams Cleaner And Dyer Relationship Specialty Start Date End Date Hailey Harrington FNP [address] [place] [address] PCP - General Family Medicine 12/20/22 01/16/24 Hailey Harrington FNP [address] [place] [address] PCP - General Family Medicine 01/17/24 02/13/24 Andreea Porter NP [address] [place] [address] PCP - General Family Medicine 02/14/24 documented as of this encounter
--- OUTSIDE RECORDS SUMMARY | 2025-04-23 10:01 | XMS_ITS | Encounter Summary ---
Author Organization [employer] Address [address] [facility] [address]t [place] [address] Care Team Providers Care Bricklayer'S Assistant Name Role Phone Andreea Porter NP Primary Care Provider [phone] Reason for Visit * Reason Onset Date [...] (Late st Contact Info) Description 04/15/2025 Refill [facility] [address] [place], [place] [phone] Andreea Porter NP [address] [place] [address] Social History Tobacco Use Types Packs/Day Years [...] Description 04/24/2025 10:00 AM EST Office Visit [facility] [address] [place] [address] Marine Stern, DDS [address] [place] [address] 05/27/2025 2:30 PM EST Office Visit [facility] [address] [place] [address] Andreea Porter NP [address] [place] [address] 07/18/2025 2:15 PM EST Office Visit [facility] [address] [place] [address] Baljeet Dooleyaris [address] [place] [address] documented as of this encounter Visit Diagnoses Not on filedocumented in this encounter Additional Health Concerns Assessment Noted Time PHQ-9 Depression Total Score: 0 01/26/20 25 10:45 AM EDT documented as of this encounter Care Teams Bricklayer'S Assistant Relationship Specialty Start Date End Date Andreea Porter NP [address] [place] [address] PCP - General Family Medicine 02/14/24 documented as of this encounter
--- OUTSIDE RECORDS SUMMARY | 2025-04-23 10:01 | XMS_ITS | Encounter Summary ---
Author Organization [employer] Address [address] [place] [address] [address] [place] [address] Care Team Providers Care Licensed Insurance Agent Name Role Phone Hailey Harrington Primary Care Provider [phone] Hailey Harrington Primary Care Provider [phone] Andreea Porter NP Primary Care Provider [phone] Reason for Visit * Reason Onset Date Comments Med Refill 07/13/2023 Encounter Details Date Type Department Care Team (Late st Contact Info) Description 07/13/2023 Telephone [facility] [address] [place] [address] Hailey Harrington FNP [address] [place] [address] Med Refill Social History Tobacco Use Types [...] 50 MG tablet To be sent to: [facility] [place], [place] - [address] [facility] documented in this encounter Plan of Treatment Upcoming Encounters Date Type Department Care Team (Late st Contact Info) Description 04/24/2025 10:00 AM EST Office Visit [facility] [address] [place] [address] Marine Stern DDS [address] [place] [address] 05/27/2025 2:30 PM EST Office Visit [facility] [address] [place] [address] Andreea Porter NP [address] [place] [address] 07/18/2025 2:15 PM EST Office Visit [facility] [address] [place] [address] Soumya, Natalie [address] [place] [address] documented as of this encounter Visit Diagnoses Not on filedocumented in this encounter Care Teams Licensed Insurance Agent Relationship Specialty Start Date End Date Hailey Harrington FNP [address] [place] [address] PCP - General Family Medicine 12/20/22 01/16/24 Hailey Harrington FNP [address] [place] [address] PCP - General Family Medicine 01/17/24 02/13/24 Andreea Porter NP [address] [place] [address] PCP - General Family Medicine 02/14/24 documented as of this encounter
--- OUTSIDE RECORDS SUMMARY | 2025-04-23 10:01 | XMS_ITS | Clinical Summary ---
Author Organization [employer] Address [address] [facility] 7t [place] [address] Care Team Providers Care Vp Customer Development Name Role Phone Andreea Porter NP Primary Care Provider [phone] Allergies Active Allergy Reactions Criticality Noted Date [...] this time Referred to TB clinic at [facility] as he may need to be [...] Encounters Date Type Department Care Team Description 04/22/2025 Telephone [facility] MEDICINE [address] [place], [place] [address] Andreea Porter NP Results 04/22/2025 Results Follow-Up [facility] [place], [place] Craft [phone] Andreea Porter NP Potassium 04/22/2025 Telephone [facility] PEDIATRICS [place], [place] [address] Andreea Porter NP CRITICAL LAB 04/17/2025 11:30 AM EST Office Visit [facility] [place] [address] Casey Cano DDS Pain, dental (Primary Dx) 04/15/2025 Refill [facility] [place], [place] Craft [phone] Andreea Porter NP 04/10/2025 3:00 PM EDT Office Visit [facility] ADULT DENTAL [place], [place] [address] Lefty Zaldivar Abfraction (Primary Dx) 03/26/2025 Telephone [facility] [place] [address] Andreea Porter NP Alexis recall 03/25/2025 Results Follow-Up [facility] [place]ha [place], [place] Craft [phone] Andreea Porter NP T-SPOT .TB 03/20/2025 Telephone [facility] [place] [address] Andreea Porter NP Medical Records Request (I called per the forms nurse, to get more information on where the patient received treatment for TB, so that the records could be requested. He stated that he [facility] in [facility]. He does not know the address, and is not sure if the facility is still in operation. He informed me that he was seen at the TB Clinic at [facility], and is waiting for a call from them, so that he could restart treatment.) 03/15/2025 11:00 AM EDT Office Visit [facility] [place] [address] Natalie Dooley Stage 2 grade B generalized periodontitis per AAP/EFP 2017 classification (Primary Dx); Dental calculus 03/15/2025 Abstract [facility] [address] [place] [address] Andreea Porter NP Screening for tuberculosis (Primary Dx) 03/08/2025 9:00 AM EDT Office Visit [facility] ADULT DENTAL [address] [place] [address] Natalie Dooley Dental calculus (Primary Dx); Stage 2 grade B generalized periodontitis per AAP/EFP 2017 classification; Abfraction 02/10/2025 Refill [facility] [address] [place] [address] Andreea Porter NP 02/06/2025 Orders Only [facility] [address] [place] [address] Andreea Porter NP Psoriasis (Primary Dx) 02/06/[address] [address] Andreea Porter NP Referral (PT explains pcp gave referral to dermatology but hasn't been called he's asking to be given another outside referral to be able to be seen at [facility] in [place]. ) 01/25/2025 10:15 AM EDT Office Visit [address] [address] Andreea Porter NP HCV antibody positive (Primary Dx); Dietary counseling; Exercise counseling; Class 1 obesity due to excess calories with serious comorbidity and body mass index (BMI) of 32.0 to 32.9 in adult; Psoriasis; Essential hypertension; Mixed hyperlipidemia 01/25/2025 Travel 01/24/2025 Telephone [facility] [address] [place] [address] Padmini Borden [place] CHARTPREP from Last 3 [...] Description 04/24/2025 10:00 AM EST Office Visit [facility] ADULT DENTAL [address] [place] [address] Marine Stern, DDS [address] [place] [address] 05/27/2025 2:30 PM EST Office Visit [facility] MED[facility] [address] [place] [address] Andreea Porter NP [address] [place] [address] 07/18/2025 2:15 PM EST Office Visit [facility] ADULT DENT[facility] [address] [place] [address] Natalie Dooley [address] [place] [address] Health Maintenance Due Date Last Done Comments [...] of 2) 2020 COVID-19 Vaccine ( - season) 2025 03/19/2022, 11/12/2020, 10/30/2020, Additional history [...] Procedure Name Priority Date/Time Associated Diagnosis Comments MAGNESIUM Routine 04/23/2025 8:47 AM EST Psoriasis BASIC METABOLIC PANEL Routine 04/23/2025 8:47 AM EST Psoriasis CBC WITH AUTO DIFFERENTIAL Routine 04/23/2025 8:47 AM EST Psoriasis POTASSIUM Routine 04/22/2025 10:05 AM EST Psoriasis CASE PRESENTATION, DETAILED AND EXTENSIVE TREATMENT PLANNING [...] Recently Relevant to Health Maintenance Results * CBC auto differential (04/23/2025 8:47 AM EST) White Blood Count 8.8 4.8 - 10.8 X10*3/uL [facility] Red Blood Count 5.25 4.60 - 5.80 X10*6/uL [facility] Hemoglobin 15.0 14.0 - 18.0 g/dl [facility] Hematocrit 43.6 42.0 - 52.0 % [facility] Mean Corpuscular Volume 83.0 80.0 - 98.0 fL [facility] Mean Corpuscular Hemoglobin 28.6 27.0 - 33.0 pg [facility] Mean Corpuscular HGB Conc 34.4 31.0 - 36.0 g/dl [facility] Red Cell Distribution Width 12.2 11.0 - 16.0 % [facility] Platelet Count 170 160 - 400 X10*3/uL [facility] Mean Platelet Volume 11.8 9.4 - 12.4 fL [facility] Neutrophils Percent Auto 69.5 45 - 73 % [facility] Imm Gran Pct Auto 0.3 0.0 - 0.4 % [facility] Lymphocytes Percent Auto 20.6 20 - 40 % [facility] Monocytes Percent Auto 7.5 2 - 11 % [facility] Eosinophils Percent Auto 1.5 0 - 4 % [facility] Basophils Percent Auto 0.6 0 - 2 % [facility] NRBC Pct Auto 0.0 0.0 - 0.2 /100WBC [facility] Neutrophils Absolute Auto 6.1 2.0 - 8.3 x10*3/uL [facility] Imm Gran Abs Auto 0.03 0.00 - 0.03 X10*3/uL [facility] Lymphocytes Absolute Auto 1.8 1.2 - 4.9 X10*3/uL [facility] Monocytes Absolute Auto 0.7 0.1 - 1.2 X10*3/uL [facility] Eosinophils Absolute Auto 0.1 0.0 - 0.4 X10*3/uL [facility] Basophils Absolute Auto 0.1 0.0 - 0.2 X10*3/uL [facility] NRBC Abs Auto 0.000 0.0 - 0.012 X10*3/uL [facility] 04/23/2025 8:47 AM EST 04/23/2025 8:54 AM EST us Generic External Data Provider LAB BLOOD ORDERAB LES Final Result Performing Organization Address City/[facility]/ZIP Co de Phone Number [facility] [address] [place] [phone] * Magnesium (04/23/2025 8:47 AM EST) Magnesium 2.0 1.6 - 2.6 mg/dL [facility] 04/23/2025 8:47 AM EST 04/23/2025 8:54 AM EST Generic External Data Provider LAB BLOOD ORDERAB LES Final Result Performing Organization Address City/[facility]/ZIP Co de Phone Number [facility] [address] [place] [phone] * (ABNORMAL) Basic Metabolic Panel (04/23/2025 8:47 AM EST) Sodium 140 135 - 145 mmol/L [facility] Potassium 2.8(LL) 3.3 - 5.1 mmol/L [facility] Comment:Critical value for P OTS: Results called to and read judithy: PRATIBHA Person calling: JOYCE Date: 04/23/25 Time: 920 Chloride 101 96 - 108 mmol/L [facility] Carbon Dioxide 28 22 - 29 mmol/L [facility] Anion Gap 14 12 - 20 [facility] Urea Nitrogen (BUN) 16 9 - 16 mg/dL [facility] Creatinine, Serum 0.94 0.5 - 1.4 mg/dL [facility] Creatinine Clr Calc Pharmacy 122.6 [facility] Comment:eGFR (calculated fro m the MDRD study equation) and eCrCl(calculated from the Cockcroft-Gault equation) are based ondifferent parameters and may not yield comparable results.If eCrCl result is absurd, please check patient'sheight/weight. Estimated Glomerular Filt Rate >60 [facility] Comment:Chronic Kidney Disea se: Estimated GFR < 60 mL/min/1.85u0Budbxr Kidney Disease: Estimated GFR < 15 mL/min/1.73m2 Glucose 180(H) 60 - 115 mg/dL [facility] Calcium 9.5 8.4 - 10.2 mg/dL [facility] 04/23/2025 8:47 AM EST 04/23/2025 8:54 AM EST us Generic External Data Provider LAB BLOOD ORDERAB LES Final Result [facility] [address] [place] [phone] * (ABNORMAL) Potassium (04/22/2025 10:05 AM EST) Potassium 2.8(LL) 3.3 - 5.1 mmol/L [facility] Comment:Critical value for t est(s):POTS Results called to and readback by: CHINYERE Jaimes Person calling: PAO Date: 04/22/25Time:1315 04/22/2025 10:0 5 AM EST 04/22/2025 11:30 AM EST Hailey Len INSTRUMENTATION SUPERVISOR LAB BLOOD ORDERABLES Final Resu lt [facility] [address] [place] [phone] [phone] * (ABNORMAL) T-SPOT??.TB (03/21/2025 10:48 AM EDT) T Spot TB Positive( A) Negative [facility] Comment: Diagnosing or excluding tuberculosis (TB) [...] as aquantitative test. TS PANEL A 15 [facility] TS PANEL B 42 [facility] Negative Control Passed [facility] Positive Control Passed [facility] Comment:For additional infor warren, please refer tohttp://education.[employer])/faq/DLP020(This link is being provided for informational/educational purposes only.)THIS TEST WAS PERFORMED AT:[facility]/[id number] [place] [id number] PORTILLO MD,PHD 03/21/2025 10:4 8 AM EDT 03/21/2025 1:29 PM EDT Andreea Porter METAL ROASTER LAB BLOOD ORDERABLES Final Resu lt Performing Organization Address [facility]/ZIP Co de Phone Number [facility] [address] [place] [phone] * Hepatitis C Viral RNA, Quantitative, Real-Time PCR (11/26/2024 11:03 AM EDT) Hepatitis C Viral Load <15 NOT DETECTED NOT DETECTED IU/mL [facility] HCV Log PCR <1.18 NOT DETECTED NOT DETECTED Log IU/mL [facility] Comment:For additional infor matsunny, please refer tohttp://education.[employer])/faq/GMH96w2(This link is being provided for informational/educational purposes only.)THIS TEST WAS PERFORMED AT:[facility] [address] [id number] LOPEZ MD Blood 11/26/2024 11:0 3 AM EDT 11/26/2024 1:00 PM EDT Clara Kohler MD LAB BLOOD ORDERABLES Fin al Result Performing Organization Address [facility]/ZIP Co de Phone Number [facility] [address] [place] [phone] * HIV-1/2 Antigen and Antibodies, Fourth Generation, with Reflexes (11/26/2024 11:03 AM EDT) HIV AB/AG Nonreactive Nonreactive [facility] Comment:HIV-1 p24 Ag and/or HIV-1/HIV-2 Ab not detected.A test result that is nonreactive does not exclude thepossibility of exposure to or infection with HIV-1 and/orHIV-2. Nonreactive results in this assay for individualswith prior exposure to HIV-1 and/or HIV-2 may be due toantigen and antibody levels that are below the limit ofdetection of this assay.The [employer] HIV Ag/Ab Combo assay result andsupplemental assay results should be interpreted inconjunction with the patient's clinical presentation,history and other laboratory results. If the results areinconsistent with clinical evidence, additional testing issuggested to confirm the result. Blood Venous blood specimen / Unknown 11/26/2024 11:03 AM EDT 11/26/2024 1:14 PM EDT us Clara Kohler MD LAB BLOOD ORDERABLES Fin al Result [facility] [address] [place] [phone] * (ABNORMAL) Lipid Panel, Standard (11/26/2024 11:03 AM EDT) Triglycerides 190(H) <150 mg/dL [facility] Comment:Desirable Triglyceri de: less than 150 mg/dLBorderline High Triglyceride 150-199 mg/dLHigh Triglyceride: 200-499 mg/dLVery High Triglyceride: greater than or equal to 5OO mg/dL Cholesterol 208(H) <200 mg/dL [facility] Comment:Desirable Cholestero l: less than 200 mg/dLBorderline High Cholesterol: 200-239 mg/dLHigh Cholesterol: greater than 239 mg/dL LDL Cholesterol Calculated 128(H) <100 mg/dL [facility] Comment:Desirable LDL: less than 100 mg/dLNear Optimal/Above Optimal LDL: 110- 129 mg/dLBorderline High LDL: 130-159 mg/dLHigh LDL: 160-189 mg/dLVery High LDL: greater than or equal to 190 mg/dL HDL Cholesterol 42 >40 mg/dL [facility] Comment:Desirable HDL: great er than 40 mg/dL Note: This HDL assay may give artificially low results in patients with liver disease. Blood Venous blood specimen / Unknown 11/26/2024 11:03 AM EDT 11/26/2024 1:14 PM EDT Hailey Harrington INSTRUMENTATION SUPERVISOR LAB BLOOD ORDERABLES Final Resu lt [facility] [address] [place] [phone] from Last 3 Months or Most Recently Relevant to Health Maintenance Insurance [facility] C3 DENTAL-[facility] MEDICAID STAND ADULT Care Teams Vp Customer Development Relationship Specialty Start Date End Date Andreea Porter NP [address] [place] [phone] PCP - General Family Medicine 02/14/24
--- OUTSIDE RECORDS SUMMARY | 2025-04-23 10:01 | XMS_ITS | Encounter Summary ---
Author Organization [email or web address] Address [address] [place] [address] 7t [place] [address] Care Team Providers Care Demolition Expert Name Role Phone Hailey Harrington Primary Care Provider [phone] Hailey Harrington Primary Care Provider [phone] Andreea Porter [employer] CONSULTANT Primary Care Provider [phone] Encounter Details Date Type Department Care Team (Late st Contact Info) Description 07/20/2023 Orders Only [facility] & PEDS [address] [place] [address] Hailey Harrington FNP [address] [place] [address] Social History Tobacco Use Types Packs/Day Years [...] Department Care Team (Late Contact Info) Description 04/24/2025 10:00 AM EST Office Visit [facility] ADULT DENTAL [address] [place] [address] Marine Stern, DDS [address] [place] [address] 05/27/2025 2:30 PM EST Office Visit [facility] MEDICINE [address] [place] [address] Andreea Porter NP [address] [place] [address] 07/18/2025 2:15 PM EST Office Visit [facility] ADULT DENTAL [address] [place] [address] Baljeet Dooleyaris [address] [place] [address] documented as of this encounter Visit Diagnoses Not on filedocumented in this encounter Care Teams Demolition Expert Relationship Specialty Start Date End Date Hailey Harrington FNP [address] [place] [address] PCP - General Family Medicine 12/20/22 01/16/24 Hailey Harrington FNP [address] [place] [address] PCP - General Family Medicine 01/17/24 02/13/24 Andreea Porter NP [address] [place] [address] PCP - General Family Medicine 02/14/24 documented as of this encounter
--- OUTSIDE RECORDS SUMMARY | 2025-04-23 10:01 | XMS_ITS | Encounter Summary ---
Author Organization [employer] Address [address] [facility] [address]t [place] [address] Care Team Providers Care Wood Scrap Handler Name Role Phone Anselmo Valeria Michaud WRINGER MACHINE OPERATOR Primary Care Provider Chantale Hailey Messer WRINGER MACHINE OPERATOR Primary Care Provider [phone] Hailey Harrington WRINGER MACHINE OPERATOR Primary Care Provider [phone] Andreea Porter NP Primary Care Provider [phone] Encounter Details Date Type Department Care Team (Late Contact Info) Description 08/09/2022 Orders Only [facility] P[facility] [address] [place] [address] Bronwyn Amezcua LPN Social History Tobacco Use [...] Description 04/24/2025 10:00 AM EST Office Visit [facility] ADULT DENTAL [address] [place] [address] Fontenot-Farias, Marine, DDS [address] [facility] [address] 05/27/2025 2:30 PM EST Office Visit [facility] [address] [place] [address] Andreea Porter NP [address] [place] [address] 07/18/2025 2:15 PM EST Office Visit [facility] ADULT DENTAL [address] [place] [address] Soumya Natalie [address] [place] [address] documented as of this encounter Visit Diagnoses Not on filedocumented in this encounter Care Teams Wood Scrap Handler Relationship Specialty Start Date End Date Valeria Briones FNP PCP - General Family Medicine 12/08/21 12/19/22 Hailey Harrington [place] [address] PCP - General Family Medicine 12/20/22 01/16/24 Hailey Harrington [place] [address] PCP - General Family Medicine 01/17/24 02/13/24 [place] [address] PCP - General Family Medicine 02/14/24 documented as of this encounter
--- OUTSIDE RECORDS SUMMARY | 2025-04-23 10:01 | XMS_ITS | Encounter Summary ---
Author Organization [employer] Address [address] [place] [address] 7t [place] [address] Care Team Providers Care Kaiako Kura Tuarua Name Role Phone Andreea Porter NP Primary Care Provider [phone] Reason for Referral * Consultation (Routine) - Closed Specialty Diagnoses / Procedures Referred By Contaysha t Referred To Contact Dermatology Diagnoses Psoriasis Andreea Porter NP [address] [place] [address] Phone: tel: fax: Ting Shepherd [address] [place] [address] Phone: tel: fax: Referral ID Status Reason Start Date Expiration Date V isits Requested Visits Authorized [id number] Closed Specialty Services Required 02/07/2025 02/07/2026 6 6 Encounter Details Date Type Department Care Team (Late st Contact Info) Description 02/06/2025 Orders Only [facility] [address] [place] [address] Andreea Porter NP [address] [place] [address] Psoriasis (Primary Dx) Social History Tobacco Use [...] Description 04/24/2025 10:00 AM EST Office Visit [facility] ADULT DENTAL [address] [place] [address] Marine Stern DDS [address] [place] [phone] 05/27/2025 2:30 PM EST Office Visit [facility] MEDICINE [address] [place] [address] Andreea Porter NP [address] [place] [address] 07/18/2025 2:15 PM EST Office Visit [facility] ADULT DENTAL [address] [place], [place] [phone] Natalie Dooley [address] [place] [address] Scheduled Referrals Name Type Priority Associated Diagnoses Order Schedule Referral to Dermatology Outpatient Referral Routine Psoriasis Expected: 02/06/2025 (Approximate), Expires: 02/06/2026 documented as of this encounter Procedures Procedure Name Priority Date/Time Associated Diagnosis Comments CBC WITH AUTO DIFFERENTIAL Routine 04/23/2025 8:47 AM EST Psoriasis MAGNESIUM Routine 04/23/2025 8:47 AM EST Psoriasis BASIC METABOLIC PANEL Routine 04/23/2025 8:47 AM EST Psoriasis POTASSIUM Routine 04/22/2025 10:05 AM EST Psoriasis documented in this encounter Results * Magnesium (04/23/2025 8:47 AM EST) Magnesium 2.0 1.6 - 2.6 mg/dL [facility] 04/23/2025 8:47 AM EST 04/23/2025 8:54 AM EST us Generic External Data Provider LAB BLOOD ORDERAB LES Final Result [facility] [address] [place] [address] [phone] * (ABNORMAL) Basic Metabolic Panel (04/23/2025 8:47 AM EST) Sodium 140 135 - 145 mmol/L [facility] Potassium 2.8(LL) 3.3 - 5.1 mmol/L [facility] Comment:Critical value for P OTS: Results called to and read dawit MCKINNON Person calling: JOYCE Date: 04/23/25 Time: 0921 Chloride 101 96 - 108 mmol/L [facility] Carbon Dioxide 28 22 - 29 mmol/L [facility] Anion Gap 14 12 - 20 [facility] Urea Nitrogen (BUN) 16 9 - 16 mg/dL [facility] Creatinine, Serum 0.94 0.5 - 1.4 mg/dL [facility] Creatinine Clr Calc Pharmacy 122.6 [facility] Comment:eGFR (calculated fro m the MDRD study equation) and eCrCl(calculated from the Cockcroft-Gault equation) are based ondifferent parameters and may not yield comparable results.If eCrCl result is absurd, please check patient'sheight/weight. Estimated Glomerular Filt Rate >60 [facility] Comment:Chronic Kidney Disea se: Estimated GFR < 60 mL/min/[id number] Kidney Disease: Estimated GFR < 15 mL/min/1.73m2 Glucose 180(H) 60 - 115 mg/dL [facility] Calcium 9.5 8.4 - 10.2 mg/dL [facility] 04/23/2025 8:47 AM EST 04/23/2025 8:54 AM EST us Generic External Data Provider LAB BLOOD ORDERAB LES Final Result [facility] [address] [place] [phone] * CBC auto differential (04/23/2025 8:47 AM EST) White Blood Count 8.8 4.8 - 10.8 X10*3/uL [facility] Red Blood Count 5.25 4.60 - 5.80 X10*6/uL [facility] Hemoglobin 15.0 14.0 - 18.0 g/dl [facility] Hematocrit 43.6 42.0 - 52.0 % [facility] Mean Corpuscular Volume 83.0 80.0 - 98.0 fL [facility] Mean Corpuscular Hemoglobin 28.6 27.0 - 33.0 pg [facility] Mean Corpuscular HGB Conc 34.4 31.0 - 36.0 g/dl [facility] Red Cell Distribution Width 12.2 11.0 - 16.0 % [facility] Platelet Count 170 160 - 400 X10*3/uL [facility] Mean Platelet Volume 11.8 9.4 - 12.4 fL [facility] Neutrophils Percent Auto 69.5 45 - 73 % [facility] Imm Gran Pct Auto 0.3 0.0 - 0.4 % [facility] Lymphocytes Percent Auto 20.6 20 - 40 % [facility] Monocytes Percent Auto 7.5 2 - 11 % [facility] Eosinophils Percent Auto 1.5 0 - 4 % [facility] Basophils Percent Auto 0.6 0 - 2 % [facility] NRBC Pct Auto 0.0 0.0 - 0.2 /100WBC [facility] Neutrophils Absolute Auto 6.1 2.0 - 8.3 x10*3/uL [facility] Imm Gran Abs Auto 0.03 0.00 - 0.03 X10*3/uL [facility] Lymphocytes Absolute Auto 1.8 1.2 - 4.9 X10*3/uL [facility] Monocytes Absolute Auto 0.7 0.1 - 1.2 X10*3/uL [facility] Eosinophils Absolute Auto 0.1 0.0 - 0.4 X10*3/uL [facility] Basophils Absolute Auto 0.1 0.0 - 0.2 X10*3/uL [facility] NRBC Abs Auto 0.000 0.0 - 0.012 X10*3/uL [facility] 04/23/2025 8:47 AM EST 04/23/2025 8:54 AM EST us Generic External Data Provider LAB BLOOD ORDERAB LES Final Result [facility] [address] [place] [address] [phone] * (ABNORMAL) Potassium (04/22/2025 10:05 AM EST) Potassium 2.8(LL) 3.3 - 5.1 mmol/L [facility] Comment:Critical value for t est(s):POTS Results called to and readback by: CHINYERE Jaimes Person calling: PAO Date: 04/22/25Time:1315 04/22/2025 10:0 5 AM EST 04/22/2025 11:30 AM EST us Hailey Harrington [employer] LAB BLOOD ORDERABLES Final Resu lt [facility] [address] [place] [address] [phone] documented in this encounter Visit Diagnoses Diagnosis Psoriasis- Primary Other psoriasis documented in this encounter Additional Health Concerns Assessment Noted Time PHQ-9 Depression Total Score: 0 01/26/20 25 10:45 AM EDT documented as of this encounter Care Teams Kaiako Kura Tuarua Relationship Specialty Start Date End Date Andreea Porter NP [address] [place] [address] PCP - General Family Medicine 02/14/24 documented as of this encounter
--- OUTSIDE RECORDS SUMMARY | 2025-04-23 10:01 | XMS_ITS | Encounter Summary ---
Author Organization [employer] Address [address] [facility] 7t [place] [address] Care Team Providers Care Vp Customer Service Name Role Phone Hailey Harrington Primary Care Provider [phone] Hailey Harrington Primary Care Provider [phone] Andreea Porter NP Primary Care Provider [phone] Reason for Visit * Reason Onset Date Comments Prior Authorization 08/19/2023 telephone call 08/19/2023 No Show 08/19/2023 Encounter Details Date Type Department Care Team (Late st Contact Info) Description 08/19/2023 Telephone [facility] MEDICINE [address] [place], [place] [phone] Hailey Harringtno FNP [address] [place] [address] Prior Authorization; telephone call; No Show Social [...] has. Patient states he was coming to [facility] to provide us his insurance card and then PCP can do telephone visit. Patient never came, no show for today's telephone visit. * Telephone Encounter - Maura Buchanan - 09/01/2023 10:26 AM EDT Tc to patient due to [facility] insurance. [facility] document and scan new [...] Ting Avelar - 08/19/2023 3:32 PM EST Sheepskin Pickler s/w Abiel/[facility] pharmacy, who stated hydroCHLOROthiazide (HYDRODiuril) 50 MG tablet does not need a PA, needs a refill. Sheepskin Pickler will work on PA for Otezla. * Telephone Encounter - Hector Bates - 08/19/2023 12:57 PM EST Tc from pt stating hydroCHLOROthiazide (HYDRODiuril) 50 MG tablet and Otezla 30 MG tablet needs prior authorization. If any questions you can contact pt at [phone]. documented in this encounter Plan of Treatment Upcoming Encounters Date Type Department Care Team (Late st Contact Info) Description 04/24/2025 10:00 AM EST Office Visit [facility] ADULT DENTAL [address] [place] [address] Marine Stern, DDS [address] [place] [address] 05/27/2025 2:30 PM EST Office Visit [facility] MEDICINE [address] [place] [address] Andreea Porter NP [address] [place] [address] 07/18/2025 2:15 PM EST Office Visit [facility] ADULT DENTAL [address] [place] [address] Soumya, Natalie [address] [place] [address] documented as of this encounter Visit Diagnoses Not on filedocumented in this encounter Care Teams Vp Customer Service Relationship Specialty Start Date End Date Hailey Harrington FNP [address] [place] [address] PCP - General Family Medicine 12/20/22 01/16/24 Hailey Harrington FNP [address] [place] [address] PCP - General Family Medicine 01/17/24 02/13/24 Andreea Porter NP [address] [place] [address] PCP - General Family Medicine 02/14/24 documented as of this encounter
--- OUTSIDE RECORDS SUMMARY | 2025-04-23 10:01 | XMS_ITS | Encounter Summary ---
Author Organization [employer] Address [address] [place] [address] 7t [place] [address] Care Team Providers Care Director Health Name Role Phone Hialey Harrington Primary Care Provider [phone] Andreea Porter NP Primary Care Provider [phone] Reason for Referral * Consultation (Routine) - Closed Specialty Diagnoses / Procedures Referred By Contaysha t Referred To Contact Infectious Diseases Diagnoses Positive QuantiFERON-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 Hailey Harrington FNP [address] [place] [address] Phone: tel: fax: Referral ID Status Reason Start Date Expiration Date V isits Requested Visits Authorized [id number] Closed Specialty Services Required 02/12/2024 02/11/2025 1 1 Encounter Details Date Type Department Care Team (Late st Contact Info) Description 02/12/2024 Orders Only [facility] MED & PEDS [address] [place] [address] Hailey Harrington FNP [address] [place] [address] Positive QuantiFERON-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 (Primary Dx); Hypertriglyceridemia [...] Description 04/24/2025 10:00 AM EST Office Visit [facility] ADULT DENTAL [address] [place] [address] Fontenot-Farias, Marine, DDS [address] [place] [address] 05/27/2025 2:30 PM EST Office Visit [facility] MEDICINE [address] [place] [address] Appram, Andreea, [employer]PER[employer]OR [employer] [address] [place] [address] 07/18/2025 2:15 PM EST Office Visit [facility] ADULT DENTAL [address] [place] [address] Soumya, Natalie [address] [place] [address] Scheduled Orders Name Type Priority Associated Diagnoses [...] 11:03 AM EDT) Triglycerides 190(H) <150 mg/dL [facility] Comment:Desirable Triglyceri de: less than 150 mg/dLBorderline High Triglyceride 150-199 mg/dLHigh Triglyceride: 200-499 mg/dLVery High Triglyceride: greater than or equal to 5OO mg/dL Cholesterol 208(H) <200 mg/dL [facility] Comment:Desirable Cholestero l: less than 200 mg/dLBorderline High Cholesterol: 200-239 mg/dLHigh Cholesterol: greater than 239 mg/dL LDL Cholesterol Calculated 128(H) <100 mg/dL [facility] Comment:Desirable LDL: less than 100 mg/dLNear Optimal/Above Optimal LDL: 110- 129 mg/dLBorderline High LDL: 130-159 mg/dLHigh LDL: 160-189 mg/dLVery High LDL: greater than or equal to 190 mg/dL HDL Cholesterol 42 >40 mg/dL [facility] Comment:Desirable HDL: great er than 40 mg/dL Note: This HDL assay may give artificially low results in patients with liver disease. 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
--- OUTSIDE RECORDS SUMMARY | 2025-04-23 10:01 | XMS_ITS | Encounter Summary ---
Author Organization [employer] Address [address] [facility] 7t [place] [address] Care Team Providers Care Special Warfare Boat Operator Name Role Phone Andreea Porter NP Primary Care Provider [phone] Encounter Details Date Type Department Care Team ([facility] st Contact Info) Description 04/22/2025 Results Follow-Up [facility] MEDICINE [address] [place] [address] Andreea Porter NP [address] [place] [address] Potassium Social History Tobacco Use Types Packs/Day Years [...] as of this encounter Miscellaneous Notes * Result Encounter Note - Andreea Porter NP - 04/22/2025 1:51 PM EST Please call patient and inform him of low potassium level which can cause muscle weakness, cramping, fatigue and cardiac arrest. Advise he go to the ED for emergent repletion. Thanks documented in this encounter Plan of Treatment Upcoming Encounters Date Type Department Care Team (Late st Contact Info) Description 04/24/2025 10:00 AM EST Office Visit [facility] ADULT DENTAL [address] [place] [address] Marine Stern DDS [address] [place] [address] 05/27/2025 2:30 PM EST Office Visit [facility] MEDICINE [address] [place] [address] Andreea Porter NP [address] [place] [address] 07/18/2025 2:15 PM EST Office Visit [facility] ADULT DENTAL [address] [place] [address] Natalie Dooley [address] [place] [address] documented as of this encounter Visit Diagnoses Not on filedocumented in this encounter Additional Health Concerns Assessment Noted Time PHQ-9 Depression Total Score: 0 01/26/20 25 10:45 AM EDT documented as of this encounter Care Teams Special Warfare Boat Operator Relationship Specialty Start Date End Date Andreea Porter NP [address] [place] [address] PCP - General Family Medicine 02/14/24 documented as of this encounter
--- OUTSIDE RECORDS SUMMARY | 2025-04-23 10:02 | XMS_ITS | Encounter Summary ---
Author Organization [employer] Address [address] [place] [address] 7t [place] [address] Care Team Providers Care Packing Line Operator Name Role Phone Andreea Porter NP Primary Care Provider [phone] Reason for Visit * Reason Onset Date Comments Results 04/22/2025 Encounter Details Date Type Department Care Team ([facility] Contact Info) Description 04/22/2025 Telephone [facility] MEDICINE [address] [place], [place] [phone] Andreea Porter NP [address] [place], [place] [phone] Results Social History Tobacco Use Types Packs/Day Years [...] encounter Miscellaneous Notes * Telephone Encounter - Rosy Shields RN - 04/22/2025 2:27 PM EST Images from the original note were not included. Call placed to Patient regarding PCP message below. Patient verifies that he did have his blood drawn at [facility] lab today. Informed of potassium 2.8 today. Patient educated that the level is considered moderate to severe hypokalemia and can cause symptoms like muscle weakness, fatigue, and cramps. While milder cases may be treated with diet or supplements, his level of 2.8 requires medical attention and can lead to more serious issues such as heart palpitations, abnormal heart rhythms, or low blood pressure if left untreated. Patient directed to ED immediately per PCP recommendation as level mayrequire intravenous potassium which cannot be done in the clinic setting. Patient verbalizes understanding and agreement with the plan of care at this time. Andreea Porter NP to [facility] Blue Team Nurses [place] 04/22/25 1:51 PM Note Please call patient and inform him of low potassium level which can cause muscle weakness, cramping, fatigue and cardiac arrest. Advise he go to the ED for emergent repletion. Thanks Potassium documented in this encounter Plan of Treatment Upcoming Encounters Date Type Department Care Team (Late st Contact Info) Description 04/24/2025 10:00 AM EST Office Visit [facility] ADULT DENTAL [address] [place] [address] Fontenot-FariasMarine mukherjee, DDS [address] [place] [address] 05/27/2025 2:30 PM EST Office Visit [facility] MEDICINE [address] [place] [address] Andreea Porter NP [address] [place] [address] 07/18/2025 2:15 PM EST Office Visit [facility] ADULT DENTAL [address] [place] [address] Baljeet Dooleyaris [address] [place] [address] documented as of this encounter Visit Diagnoses Not on filedocumented in this encounter Additional Health Concerns Assessment Noted Time PHQ-9 Depression Total Score: 0 01/26/20 25 10:45 AM EDT documented as of this encounter Care Teams Packing Line Operator Relationship Specialty Start Date End Date Andreea Porter NP [address] [place] [address] PCP - General Family Medicine 02/14/24 documented as of this encounter
--- OUTSIDE RECORDS SUMMARY | 2025-04-23 10:02 | XMS_ITS | Encounter Summary ---
Author Organization [employer] Address [address] [facility] 7t [place] [address] Care Team Providers Care Bankruptcy Manager Name Role Phone Andreea Porter NP Primary Care Provider [phone] Reason for Visit * Reason Onset Date Comments CRITICAL LAB 04/22/2025 Encounter Details Date Type Department Care Team ([facility] st Contact Info) Description 04/22/2025 Telephone [facility] PEDIATRICS [address] [place] [address] Andreea Porter NP [address] [place] [address] CRITICAL LAB Social History Tobacco Use Types Packs/Day Years [...] encounter Miscellaneous Notes * Telephone Encounter - Anita Cardenas RN - 04/22/2025 1:34 PM EST TC incoming from [facility] from [facility] with critical lab: K+ 2.8 Silvia SHER aware Nurse to route to PCP and team nurses to advise. documented in this encounter Plan of Treatment Upcoming Encounters Date Type Department Care Team (Late st Contact Info) Description 04/24/2025 10:00 AM EST Office Visit [facility] ADULT DENTAL [address] [place] [address] Marine Stern, DDS [address] [place] [address] 05/27/2025 2:30 PM EST Office Visit [facility] MEDICINE [address] [place] [address] Andreea Porter NP [address] [place] [address] 07/18/2025 2:15 PM EST Office Visit [facility] ADULT DENTAL [address] [place] [address] Natalie Dooley [address] [place] [address] documented as of this encounter Visit Diagnoses Not on filedocumented in this encounter Additional Health Concerns Assessment Noted Time PHQ-9 Depression Total Score: 0 01/26/20 25 10:45 AM EDT documented as of this encounter Care Teams Bankruptcy Manager Relationship Specialty Start Date End Date Andreea Porter NP [address] [place] [address] PCP - General Family Medicine 02/14/24 documented as of this encounter
[2025-04-23] MEDS: Potassium Chloride Packet 20 MEQ PACKET 40 MEQ PO (10:14)
[2025-04-23] MEDS: Potassium Chloride/H20 10 MEQ/100 ML PIGGYBACK 100 MEQ IV ×2 (10:15→11:13)
[2025-04-23 13:25] VITALS: BP 157/89; PULSE 66; RESP 18; TEMP 37.1; O2SAT 95
== END 2025-04-23 13:26 | disposition home or self-care (01) ==
PROVIDERS: Emergency Provider Emergency Medicine; PCP Nurse Practitioner
DX: E87.6 Hypokalemia (principal)
CPT/HCPCS: 36415; 80048; 83735; 85025; 96365; 96366; 99284; J3480

== ENCOUNTER 2025-05-15 08:51 | Emergency (ER) | payer OTHER, SELFPAY ==
--- OUTSIDE RECORDS SUMMARY | 2025-05-07 10:30 | XMS_ITS | Encounter Summary ---
Author Organization [employer] Address [address] [facility] [address] [place] [address] Care Team Providers Care Energy Engineer Name Role Phone Charlotte Andreea MCKINNEY Primary Care Provider [phone] Encounter Details Date Type Department Care Team (Late st Contact Info) Description 05/07/2025 10:30 AM EST Office Visit [facility] ADULT DENTAL [address] [place] [address] Vesta Alvarez DDS [address] [place] [address] Social History Tobacco Use Types Packs/Day Years [...] AM EDT documented as of this encounter Last Filed Vital Signs Vital Sign Reading Time Taken Comments Blood Pressure 146/104 05/07/2025 11:18 AM EST Pulse - - Temperature - - Respiratory Rate - - Oxygen Saturation - - Inhaled Oxygen Concentration - - Weight - - Height - - Body Mass Index - - documented in this encounter Progress Notes * Vesta Alvarez DDS - 05/07/2025 10:30 AM EST Dental procedures in this visit D3220.1 - ENDO - CLEAN AND SHAPE (Completed) Service provider: Vesta Alvarez DDS Billing provider: Vesta Alvarez DDS [id number] - PALLIATIVE (EMERGENCY) TREATMENT OF DENTAL PAIN - MINOR PROCEDURE 2,4,5 (Completed) Service provider: Vesta Alvarez DDS Billing provider: Vesta Alvarez DDS [id number] - CASE PRESENTATION, DETAILED AND EXTENSIVE TREATMENT PLANNING (Completed) Service provider: Vesta Alvarez DDS Billing provider: Vesta Alvarez DDS Patient ID: Ramesh Ellis is a 54 y.o. male. Time Out: Timeout Date: 05/07/25, Timeout Time: 1102 (rct?) Location: [facility] Tooth: #2, #4, and #5 Procedure: Exam Verified the above with patient, purchasing assistant, and provider. Confirmed via patient's chart, intraorally and by radiographs. Domestic Technician: Yes. Language: Belarusian. Domestic Technician's Name: Joyce Byers No chief complaint on file. Medical Hx: Vitals: Blood pressure (!) 146/104. Medical History[1] Medications: Encounter Medications[2] Subjective: Pain: constant, severe Duration: 3 weeks Objective: Tooth: #4 and #5 Radiographs Taken: None taken today Radiographic Findings: PA taken in previous visits revealed serene-apical changes #4 Clinical Findings: Buccal composite orthodox and occlusal amalgam orthodox #4. Tooth #32 is tilted mesially and is not in line with the occlusal plane of #31. Recommended extraction of #32 Swelling: No swelling present Endo Testing: Cold: Hypersensitive, lingering Percussion: Normal, no pain Palpation: Normal, no pain Perio: 2-3 mm probing depths Other Findings: #5 elicited normal response to cold testing Diagnosis: Symptomatic Irreversible pulpitis #4 Assessment/Plan: RCT #4 Prescriptions: Ibuprofen and Tylenol Pt tolerated procedure well, all questions answered. Dismissed in good condition. NV: RCT #4 Insole Doubler: Dayan Collins Dentist: Vesta Alvarez DDS [1] Past Medical History: Diagnosis Date Hepatitis C Hyperlipidemia Hypertension Periodontal disease Psoriasis Substance abuse ([facility]) ([facility]) [2] Outpatient Encounter Medications as of 05/07/2025 Medication Sig Dispense Refill acetaminophen (Tylenol 8 Hour) 650 MG ER tablet Take 1 tablet (650 mg) by mouth every 8 (eight) hours if needed for mild pain. Do not crush, chew, or split. 30 tablet 0 amoxicillin-clavulanate (Augmentin) 875-125 MG tablet Take 1 tablet by mouth 2 times daily for 7 days. 14 tablet 0 Blood Pressure Monitoring (Blood Pressure Cuff) [facility] [place] Use daily as prescribed 1 each 0 ibuprofen 600 MG tablet Take 1 tablet (600 mg) by mouth every 8 (eight) hours if needed for mild pain for up to 7 days. 21 tablet 0 [DISCONTINUED] acetaminophen (Tylenol) 500 MG tablet Take 1 tablet (500 mg) by mouth every 8 (eight) hours if needed for mild pain for up to 7 days. 21 tablet 0 acetaminophen (Tylenol) 500 MG tablet Take 1 tablet (500 mg) by mouth every 8 (eight) hours if needed for mild pain for up to 5 days. 15 tablet 0 amLODIPine (Norvasc) 5 MG tablet Take 1 tablet (5 mg) by mouth in the morning. (Patient not taking:Reported on 05/07/2025) 90 tablet 3 [] amoxicillin (Amoxil) 500 MG capsule Take 1 capsule (500 mg) by mouth every 8 (eight) hours for 7 days. 21 capsule 0 apremilast (Otezla) 10 & 20 & 30 MG tablet therapy pack tablet therapy pack Use as prescribed bid \Do not crush, chew, or split tablets. 55 each 0 atorvastatin (Lipitor) 40 MG tablet Take 1 tablet (40 mg) by mouth at bedtime. (Patient not taking:Reported on 05/07/2025) 90 tablet 3 halobetasol (UltraVATE) 0.05 % ointment Apply topically 2 times daily. APPLY 1 GRAM TOPICALLY TO AFFECTED AREA(S) TWICE DAILY 50 g 2 hydroCHLOROthiazide (HYDRODiuril) 50 MG tablet Take 1 tablet (50 mg) by mouth in the morning. (Patient not taking: Reported on 05/07/2025) 90 tablet 3 ibuprofen 600 MG tablet Take 1 tablet (600 mg) by mouth 3 times daily for 5 days. 15 tablet 0 [] ibuprofen 800 MG tablet Take 1 tablet (800 mg) by mouth every 8 (eight) hours if needed for mild pain for up to 10 days. (Patient not taking: Reported on 05/07/2025) 15 tablet 0 [DISCONTINUED] ibuprofen 600 MG tablet Take 1 tablet (600 mg) by mouth 3 times daily. 30 tablet 0 No facility-administered encounter medications on file as of 05/07/2025. * Vesta Alvarez DDS - 05/07/2025 10:30 AM EST One carpule of 4% Septo with 1:[id number] epi administered via buccal and palatal infiltration. Rubber dam isolation performed. Access opening made #4. Two orifices located. Estimated Working Length is 24 mm. NaOCl and Saline irrigation performed. Access opening sealed with sponge and Cavit. NV- Completion of RCT. documented in this encounter Miscellaneous Notes * Addendum Note - Vesta Alvarez DDS - 05/07/2025 10:30 AM ESTAddended by: VESTA ALVAREZ on: 05/14/2025 09:25 AM Modules accepted: Orders documented in this encounter Plan of Treatment Upcoming Encounters Date Type Department Care Team (Late st Contact Info) Description 05/20/2025 3:30 PM EST Office Visit [facility] ADULT DENTAL [address] [facility] [place] [address] Juan Nunez DDS [address] [place] [address] 05/27/2025 2:30 PM EST Office Visit [facility] MEDICINE [address] [place] [address] Andreea Porter NP [address] [place] [address] 06/21/2025 10:00 AM EST Office Visit [facility] MEDICINE [address] [place] [address] Mary Beck MD [address] [place] [address] 07/05/2025 2:30 PM EST Office Visit [facility] ADULT DENTAL [address] [place] [address] Vesta Alvarez DDS [address] [place] [address] 07/18/2025 2:15 PM EST Office Visit [facility] ADULT DENTAL [address] [place] [address] Natalie Dooley [address] [place] [address] Scheduled Orders Name Type Priority Associated Diagnoses Orde r Schedule 32 32 EXTRACTION, ERUPTED TOOTH OR EXPOSED ROOT (ELEVATION/FORCEPS REMOVAL) Dental Routine [address] arting 05/07/2025 CONSULTATION - DIAGNOSTIC SERVICE PROVIDED BY DENTIST OR PHYSICIAN OTHER THAN REQUESTING DENTIST OR PHYSICIAN Dental Routine 1 Occurrenc es starting 05/14/2025 documented as of this encounter Procedures Procedure Name Priority Date/Time Associated Diagnosis Comments ENDO - CLEAN AND SHAPE Routine 10:30 AM EST 2,4,5 PALLIATIVE (EMERGENCY) TREATMENT OF DENTAL PAIN - MINOR PROCEDURE Routine 05/07/2025 10:30 AM EST CASE PRESENTATION, DETAILED AND EXTENSIVE TREATMENT PLANNING Routine 05/07/2025 10:30 AM EST documented in this encounter Visit Diagnoses Not on filedocumented in this encounter Additional Health Concerns Assessment Noted Time PHQ-9 Depression Total Score: 0 01/26/20 10:45 AM EDT documented as of this encounter Care Teams Energy Engineer Relationship Specialty Start Date End Date Andreea Porter NP [address] [place] [address] PCP - General Family Medicine 02/14/24 documented as of this encounter
[2025-05-15 09:04] VITALS: BP 141/92; PULSE 94; RESP 20; TEMP 36.2; O2SAT 94; BMI 33.4
--- NOTE | 2025-05-15 11:21 | ED.GENADULT ---
HPI - General Adult General Chief complaint: General Medical Stated complaint: high bp medication Time Seen by Provider: 05/15/25 11:24 Source: patient, RN notes reviewed, old records reviewed and machinist tool and die Mode of arrival: ambulatory Limitations: language barrier History of Present Illness ED Provider: Yuri HPI narrative: Patient is a 54-year-old Kinyarwanda speaking male presenting to the ED requesting refills of his blood pressure medications. States he sees his PCP on 07/01 but ran out. Tried to have them refilled at the clinic but states they would not refill for him there due to insurance issue. Denies any current physical complaints. complaint: hypertension Related Data Previous Rx's ?Medication ?Instructions ?Recorded cyclobenzaprine 10 mg tablet 10 mg PO TID PRN muscle spasm #20 11/10/21 tabs naproxen 500 mg tablet 500 mg PO BID PRN pain #30 tabs 11/10/21 bacitracin 500 unit/gram topical 1 appl topical Q8H 8 days #28 grams 03/01/22 ointment naproxen 500 mg tablet 500 mg PO BID PRN pain 10 days #20 03/01/22 tabs prednisone 20 mg tablet 60 mg (3 x 20 mg) PO DAILY 5 days 03/01/22 #15 tabs methocarbamol 750 mg tablet 750 mg PO TID PRN pain #20 tabs 01/11/23 naproxen 500 mg tablet (Naprosyn) 500 mg PO BID PRN pain #30 tabs 01/11/23 meloxicam 7.5 mg tablet 7.5 mg PO DAILY #10 tabs 04/15/23 amlodipine 5 mg tablet 5 mg PO DAILY #60 tabs 05/15/25 hydrochlorothiazide 50 mg tablet 50 mg PO DAILY #60 tabs 05/15/25 Allergies Allergy/AdvReac Type Severity Reaction Status Date / Time No Known Allergies (No Known Allergy Verified 05/15/25 09:08 Allergies*) Review of Systems Review of Systems: as per hpi Yes all other systems are reviewed and are negative Constitutional: Constitutional: Reports as per HPI [facility] Social History Social History Alcohol intake: never Substance Use Type: Marijuana Advance Directives: No Advance Directives Information Provided: Yes Do you have a plan to hurt others: No Plan Physical Exam ED Vital Signs: Vital Signs - 24 hr 05/15/25 09:04 05/15/25 11:32 Temperature 97.2 F 97.2 F Pulse Rate 94 94 Respiratory Rate 20 20 Blood Pressure 141/92 H 141/92 H Pulse Oximetry 94 94 Oxygen Delivery Method Room Air Room Air BMI result Body Mass Index 33.4 Vital signs have been reviewed and appear to be correct. Blood pressure mildly elevated. Heart rate normal. Respiratory rate normal. Temperature normal. Oxygen saturation normal. Const General: cooperative, healthy appearing and no acute distress Orientation/consciousness: oriented to person, oriented to place, oriented to time and patient oriented x3 Limitations: no limitations HENMT Head: Yes normocephalic and Yes atraumatic Ears: external ears normal General nose exam: Normal external nose present Face and sinus: Yes face symmetric Mouth: oropharynx normal and moist mucous membranes Throat: Yes uvula midline Eyes Pupils: Equal, round and reactive pupils present Neck Neck: Yes normal visual inspection and Yes supple Resp Effort & Inspection: normal respiratory effort and able to speak in complete sentences Auscultation: clear to auscultation bilaterally Cardio Rate: regular rate Rhythm: regular rhythm Heart sounds: S1 normal heart sound present and S2 normal heart sound present GI Palpation (GI): Soft to palpation and nontender Auscultation: normoactive bowel sounds General: Yes no CVA tenderness Back/Spine/Pelvis Back: no CVA tenderness Skin General skin exam: elasticity normal and turgor normal Neuro General: oriented to person, oriented to place, oriented to time, patient oriented x3, moves all extremities, no focal motor deficits and CN's II-XI intact bilaterally Cranial nerves: Yes Equal, round and reactive pupils present Cognition (Neuro): normal cognition Extrem General: Yes full ROM, Yes no pedal edema and Yes no calf tenderness Psych Mental Status: mental status grossly normal Affect: normal affect Thought process: Normal thought process present Medical Decision Making Medical Decision Making MDM Narrative: Patient is a 54-year-old Kinyarwanda speaking male presenting to the ED requesting refills of his blood pressure medications. On exam patient is awake, A+Ox3, VS WNL, afebrile, normal neurological exam without focal deficits, physical exam findings as above. Given reported symptoms and physical exam findings, initial differential includes but is not limited to HTN, medication refill. Patient is without complaint, BP mildly elevated. Will send refills to get patient to his PCP appointment in June. Return precautions discussed. Patient verbalized understanding of and agreement with plan. In-person fireworks inspector was utilized for all interactions, assessments, and discussions. Differential Diagnosis Differential Diagnoses: The differential diagnosis associated with the presentation includes as per mdm Admission/Observation Consideration of admission/observation: Escalation of care including admission/observation considered Patient would have been admitted to the hospital and transferred to appropriate facility had their clinical presentation warranted hospital admission. External Record Review External record reviewed: Inpatient record, Office record and Outpatient record Prescription Management I considered prescription management with: Other Discharge Plan Discharge Clinical Impression: Encounter for medication refill, HTN (hypertension) Patient Disposition: Home, Self-Care Instructions: Hypertension (ED) Additional Instructions: You were seen in the emergency department today for a refill of your blood pressure medication. You have been sent a refill of your medications to last you until you see your PCP in June. Take all medications as prescribed. Return to the emergency department if you develop severe headache, vision changes, chest pain or shortness of breath, dizziness, lightheadedness, fainting, or any other new or concerning symptoms. Prescriptions: New amlodipine 5 mg tablet 5 mg PO DAILY Qty: 60 0RF hydrochlorothiazide 50 mg tablet 50 mg PO DAILY Qty: 60 0RF No Action prednisone 20 mg tablet 60 mg PO DAILY 5 Days Qty: 15 0RF naproxen 500 mg tablet 500 mg PO BID PRN (Reason: pain) 10 Days Qty: 20 0RF bacitracin 500 unit/gram ointment 1 appl topical Q8H 8 Days Qty: 28 0RF cyclobenzaprine 10 mg tablet 10 mg PO TID PRN (Reason: muscle spasm) Qty: 20 0RF naproxen 500 mg tablet 500 mg PO BID PRN (Reason: pain) Qty: 30 0RF naproxen [Naprosyn] 500 mg tablet 500 mg PO BID PRN (Reason: pain) Qty: 30 0RF methocarbamol 750 mg tablet 750 mg PO TID PRN (Reason: pain) Qty: 20 0RF meloxicam 7.5 mg tablet 7.5 mg PO DAILY Qty: 10 0RF Interventions: ED Discharge Assessment Last Done: 05/15/25 11:32 Discharge Date/Time: 05/15/25 11:33 Print Language: Kinyarwanda
[2025-05-15 11:32] VITALS: BP 141/92; PULSE 94; RESP 20; TEMP 36.2; O2SAT 94
--- OUTSIDE RECORDS SUMMARY | 2025-05-15 13:47 | XMS_ITS | Encounter Summary ---
Author Organization [employer] Address [address] [facility] [address] [place] [address] Care Team Providers Care Inventory Management Specialist Name Role Phone Andreea Porter NP Primary Care Provider [phone] Reason for Visit * Reason Comments Med Refill Encounter Details Date Type Department Care Team ([facility] st Contact Info) Description 02/10/2025 Refill [facility] MEDICINE [address] [place], [place] [phone] Andreea Porter NP [address] [place], [place] [phone] Social History Tobacco Use Types Packs/Day Years [...] is your housing situation today? I have hughag rodriguez 01/25/[address] you [...] Description 05/20/2025 3:30 PM EST Office Visit [facility] ADULT DENTAL [address] [place] [address] Juan Nunez DDS [address] [place] [address] 05/27/2025 2:30 PM EST Office Visit [address] [address] Andreea Porter NP [address] [place] [address] 06/21/2025 10:00 AM EST Office Visit [address] [address] Mary Beck MD [address] [place] [address] 07/05/2025 2:30 PM EST Office Visit [facility] ADULT DENTAL [address] [place] [address] Yvon Dixon DDS [address] [place] [address] 07/18/2025 2:15 PM EST Office Visit [facility] ADULT DENTAL [address] [place] [address] Natalie Dooley [address] [place] [address] documented as of this encounter Visit Diagnoses Not on filedocumented in this encounter Additional Health Concerns Assessment Noted Time PHQ-9 Depression Total Score: 0 01/26/20 25 10:45 AM EDT documented as of this encounter Care Teams Inventory Management Specialist Relationship Specialty Start Date End Date Andreea Porter NP [address] [place] [address] PCP - General Family Medicine 02/14/24 documented as of this encounter
--- OUTSIDE RECORDS SUMMARY | 2025-05-15 13:47 | XMS_ITS | Encounter Summary ---
Author Organization [employer] Address [address] [facility] [address] [place] [address] Care Team Providers Care Upholstery Bundler Name Role Phone Andreea Porter NP Primary Care Provider [phone] Reason for Visit * Reason Onset Date Comments DR ALVAREZ 05/13/2025 Encounter Details Date Type Department Care Team (Late st Contact Info) Description 05/13/2025 Telephone [facility] ADULT DENTAL [address] [place] [address] Yvon Alvarez DDS [address] [place], [place] [phone] DR ALVAREZ Social History Tobacco Use Types Packs/Day Years [...] your housing situation today? I have hugh jennifer 01/25/[address] you li [...] encounter Miscellaneous Notes * Telephone Encounter - Rick Briceño - 05/13/2025 2:45 PM EST Pt is calling to request new pain meds. He's saying the pain is not getting better and has 1 pill left. documented in this encounter Plan of Treatment Upcoming Encounters Date Type Department Care Team (Late st Contact Info) Description 05/20/2025 3:30 PM EST Office Visit [facility] ADULT DENTAL [address] [place] [address] Juan Nunez DDS [address] [place] [address] 05/27/2025 2:30 PM EST Office Visit [address] [address] Andreea Porter NP [address] [place] [address] 06/21/2025 10:00 AM EST Office Visit [address] [address] Mary Beck MD [address] [place] [address] 07/05/2025 2:30 PM EST Office Visit [facility] ADULT DENTAL [address] [place] [address] Yvon Alvarez DDS [address] [place] [address] 07/18/2025 2:15 PM EST Office Visit [facility] ADULT DENTAL [address] [place] [address] Natalie Dooley [address] [place] [address] documented as of this encounter Visit Diagnoses Not on filedocumented in this encounter Additional Health Concerns Assessment Noted Time PHQ-9 Depression Total Score: 0 01/26/20 25 10:45 AM EDT documented as of this encounter Care Teams Upholstery Bundler Relationship Specialty Start Date End Date Andreea Porter NP [address] [place] [address] PCP - General Family Medicine 02/14/24 documented as of this encounter
--- OUTSIDE RECORDS SUMMARY | 2025-05-15 13:47 | XMS_ITS | Encounter Summary ---
Author Organization [employer] Address [address] [facility] 7t [place] [address] Care Team Providers Care Deicer Tester Name Role Phone Andreea Porter NP Primary Care Provider [phone] Reason for Referral * Consultation (Routine) - Closed Specialty Diagnoses / Procedures Referred By Contaysha t Referred To Contact Dermatology Diagnoses Psoriasis Andreea Porter NP [address] [place] [address] Phone: tel: fax: Ting Shepherd [address] [place] [address] [address] [place] [address] Phone: tel: fax: Referral ID Status Reason Start Date Expiration Date V isits Requested Visits Authorized [id number] Closed Specialty Services Required 02/07/2025 02/07/2026 6 6 Encounter Details Date Type Department Care Team (Late st Contact Info) Description 02/06/2025 Orders Only [facility] [address] [place] [address] Andreea Porter NP [address] [place] [address] Psoriasis (Primary Dx) Social History Tobacco Use [...] Description 05/20/2025 3:30 PM EST Office Visit [facility] [address] [place] [address] Juan Nunez DDS [address] [place] [address] 05/27/2025 2:30 PM EST Office Visit [facility] [address] [place] [address] Andreea Porter NP [address] [place] [address] 06/21/2025 10:00 AM EST Office Visit [facility] [address], [place] [address] Mary Beck MD [address] [place] [address] 07/05/2025 2:30 PM EST Office Visit [facility] ADULT [facility] [address] [place] [address] Destiny Yvon, DDS [address] [place] [address] 07/18/2025 2:15 PM EST Office Visit [facility] [address] [place] [address] Soumya, Natalie [address] [place] [address] Scheduled Referrals Name Type Priority Associated Diagnoses [...] EST) Magnesium 2.0 1.6 - 2.6 mg/dL [facility] 04/23/2025 8:47 AM EST 04/23/2025 8:54 AM EST us Generic External Data Provider LAB BLOOD ORDERAB LES Final Result Performing Organization Address City/[facility]/ZIP Co de Phone Number [facility] [address] [place] [address] [phone] * (ABNORMAL) Basic Metabolic Panel (04/23/2025 8:47 AM EST) Sodium 140 135 - 145 mmol/L [facility] Potassium 2.8(LL) 3.3 - 5.1 mmol/L [facility] Comment:Critical value for P OTS: Results called to and read backby: BHARATHJOMARAdriana Person calling: JOYCE Date: 04/23/25 Time: 920 Chloride 101 96 - 108 mmol/L [facility] Carbon Dioxide 28 22 - 29 mmol/L [facility] Anion Gap 14 12 - 20 [facility] Urea Nitrogen (BUN) 16 9 - 16 mg/dL [facility] Creatinine, Serum 0.94 0.5 - 1.4 mg/dL [facility] Creatinine Clr Calc Pharmacy 122.6 [facility] Comment:eGFR (calculated fro m the MDRD study equation) and eCrCl(calculated from the Cockcroft-Gault equation) are based ondifferent parameters and may not yield comparable results.If eCrCl result is absurd, please check patient'sheight/weight. Estimated Glomerular Filt Rate >60 [facility] Comment:Chronic Kidney Disea se: Estimated GFR < 60 mL/min/1.64v0Riscom Kidney Disease: Estimated GFR < 15 mL/min/1.73m2 Glucose 180(H) 60 - 115 mg/dL [facility] Calcium 9.5 8.4 - 10.2 mg/dL [facility] 04/23/2025 8:47 AM EST 04/23/2025 8:54 AM EST us Generic External Data Provider LAB BLOOD ORDERAB LES Final Result Performing Organization Address [facility]/ZIP Co de Phone Number [facility] [address] [place] [address] [phone] * CBC auto differential (04/23/2025 8:47 AM EST) White Blood Count 8.8 4.8 - 10.8 X10*3/uL [facility] Red Blood Count 5.25 4.60 - 5.80 X10*6/uL [facility] Hemoglobin 15.0 14.0 - 18.0 g/dl [facility] Hematocrit 43.6 42.0 - 52.0 % [facility] Mean Corpuscular Volume 83.0 80.0 - 98.0 fL [facility] Mean Corpuscular Hemoglobin 28.6 27.0 - 33.0 pg [facility] Mean Corpuscular HGB Conc 34.4 31.0 - 36.0 g/dl [facility] Red Cell Distribution Width 12.2 11.0 - 16.0 % [facility] Platelet Count 170 160 - 400 X10*3/uL [facility] Mean Platelet Volume 11.8 9.4 - 12.4 fL [facility] Neutrophils Percent Auto 69.5 45 - 73 % [facility] Imm Gran Pct Auto 0.3 0.0 - 0.4 % [facility] Lymphocytes Percent Auto 20.6 20 - 40 % [facility] Monocytes Percent Auto 7.5 2 - 11 % [facility] Eosinophils Percent Auto 1.5 0 - 4 % [facility] Basophils Percent Auto 0.6 0 - 2 % [facility] NRBC Pct Auto 0.0 0.0 - 0.2 /100WBC [facility] Neutrophils Absolute Auto 6.1 2.0 - 8.3 x10*3/uL [facility] Imm Gran Abs Auto 0.03 0.00 - 0.03 X10*3/uL [facility] Lymphocytes Absolute Auto 1.8 1.2 - 4.9 X10*3/uL [facility] Monocytes Absolute Auto 0.7 0.1 - 1.2 X10*3/uL [facility] Eosinophils Absolute Auto 0.1 0.0 - 0.4 X10*3/uL [facility] Basophils Absolute Auto 0.1 0.0 - 0.2 X10*3/uL [facility] NRBC Abs Auto 0.000 0.0 - 0.012 X10*3/uL [facility] 04/23/2025 8:47 AM EST 04/23/2025 8:54 AM EST us Generic External Data Provider LAB BLOOD ORDERAB LES Final Result Performing Organization Address [facility] de Phone Number [facility] [address] [place] [phone] * (ABNORMAL) Potassium (04/22/2025 10:05 AM EST) Potassium 2.8(LL) 3.3 - 5.1 mmol/L [facility] Comment:Critical value for t est(s):POTS Results called to and readback by: CHINYERE Jaimes Person calling: PAO Date: 04/22/25Time:1315 04/22/2025 10:0 5 AM EST 04/22/2025 11:30 AM EST us Hailey Harrington [employer] LAB BLOOD ORDERABLES Final Resu lt Performing Organization Address [facility] de Phone Number [facility] [address] [place] [phone] documented in this encounter Visit Diagnoses Diagnosis Psoriasis- Primary Other psoriasis documented in this encounter Additional Health Concerns Assessment Noted Time PHQ-9 Depression Total Score: 0 01/26/20 25 10:45 AM EDT documented as of this encounter Care Teams Deicer Tester Relationship Specialty Start Date End Date Andreea Porter NP [address] [place] [address] PCP - General Family Medicine 02/14/24 documented as of this encounter
--- OUTSIDE RECORDS SUMMARY | 2025-05-15 13:48 | XMS_ITS | Encounter Summary ---
Author Organization [employer] Address [address] [place] [address] 7t [place] [address] Care Team Providers Care Packaging Tech Name Role Phone Hailey Harrington Primary Care Provider +- Hailey HarringtonP Primary Care Provider [phone] Andreea Porter NP Primary Care Provider [phone] Encounter Details Date Type Department Care Team (Late st Contact Info) Description 08/22/2023 Orders Only [facility] [address] [place] [address] Hailey Harrington FNP [address] [place] [address] Social History Tobacco Use Types Packs/Day Years [...] Description 05/20/2025 3:30 PM EST Office Visit [facility] ADULT DENTAL [address] [place] [address] Juan Nunez, DDS [address] [place] [address] 05/27/2025 2:30 PM EST Office Visit [facility] [address] [place] [address] Andreea Porter NP [address] [place], [place] [address] 06/21/2025 10:00 AM EST Office Visit [facility] [address] [place] [address] Mary Beck MD [address] [place] [address] 07/05/2025 2:30 PM EST Office Visit [facility] ADULT DENT[facility] [address] [facility] [place] [address] Yvon Dixon DDS [address] [place], [place] [address] 07/18/2025 2:15 PM EST Office Visit [facility] ADULT DENTAL [address] [place] [address] Natalie Dooley [address] [place] [address] documented as of this encounter Visit Diagnoses Not on filedocumented in this encounter Care Teams Packaging Tech Relationship Specialty Start Date End Date [place] [address] PCP - General Family Medicine 12/20/22 01/16/24 [place] [address] PCP - General Family Medicine 01/17/24 02/13/24 [place] [address] PCP - General Family Medicine 02/14/24 documented as of this encounter
--- OUTSIDE RECORDS SUMMARY | 2025-05-15 13:48 | XMS_ITS | Encounter Summary ---
Author Organization [employer] Address [address] [facility] 7t [place] [address] Care Team Providers Care Domestic Laundry Worker Name Role Phone Hailey Harrington Primary Care Provider + Hailey Harrington Primary Care Provider + Andreea Porter NP Primary Care Provider + Reason for Visit * Reason Comments Med Refill Encounter Details Date Type Department Care Team (Late st Contact Info) Description 09/21/2023 Refill [facility] [address] [place] [address] Iban Yoo FNP Social History Tobacco Use [...] Description 05/20/2025 3:30 PM EST Office Visit [facility]ULT [facility] [address] [place] [address] Juan Nunez DDS [address] [place] [address] 05/27/2025 2:30 PM EST Office Visit [facility] MEDICINE [address] [place], [place] [address], [place] [address] Andreea Porter NP [address] [place] [address] 06/21/2025 10:00 AM EST Office Visit [facility] [address] [facility] [place] [address] Mary Beck MD [address] [facility] [place] [address] 07/05/2025 2:30 PM EST Office Visit [facility] ADULT DENTAL [address] [facility] [place] [address] Yvon Dixon DDS [address] [facility] [place] [address] 07/18/2025 2:15 PM EST Office Visit [facility] ADULT [facility] [address] [facility] [place] [address] Natalie Dooley [address] [facility] [place] [address] documented as of this encounter Visit Diagnoses Not on filedocumented in this encounter Care Teams Domestic Laundry Worker Relationship Specialty Start Date End Date [place] [address] PCP - General Family Medicine 12/20/22 01/16/24 [place] [address] PCP - General Family Medicine 01/17/24 02/13/24 [place] [address] PCP - General Family Medicine 02/14/24 documented as of this encounter
--- OUTSIDE RECORDS SUMMARY | 2025-05-15 13:48 | XMS_ITS | Encounter Summary ---
Author Organization [email or web address] Address [address] [facility] 7t [place] [address] Care Team Providers Care Dispatcher Service Chief Name Role Phone Andreea Porter NP Primary Care Provider [phone] Reason for Visit * Reason Onset Date Comments Med Refill 05/14/2025 Encounter Details Date Type Department Care Team ([facility] st Contact Info) Description 05/14/2025 Refill [facility] PEDS [address] [place] [address] Andreea Porter NP [address] [place] [address] Social History Tobacco Use Types Packs/Day Years [...] Description 05/20/2025 3:30 PM EST Office Visit [facility] [address] [place] [address] Juan Nunez DDS [address] [place] [address] 05/27/2025 2:30 PM EST Office Visit [address] [address] Andreea Porter NP [address] [place] [address] 06/21/2025 10:00 AM EST Office Visit [facility] MEDICINE [address] [place] [address] Mary Beck MD [address] [place] [address] 07/05/2025 2:30 PM EST Office Visit [facility] ADULT DENTAL [address] [place] [address] Yvon Dixon DDS [address] [place] [address] 07/18/2025 2:15 PM EST Office Visit [facility] ADULT DENTAL [address] [place], [place] [phone] Natlaie Dooley [address] [place], [place] [phone] documented as of this encounter Visit Diagnoses Not on filedocumented in this encounter Additional Health Concerns Assessment Noted Time PHQ-9 Depression Total Score: 0 01/26/20 25 10:45 AM EDT documented as of this encounter Care Teams Dispatcher Service Chief Relationship Specialty Start Date End Date Andreea Porter NP [address] [place] [address] PCP - General Family Medicine 02/14/24 documented as of this encounter
--- OUTSIDE RECORDS SUMMARY | 2025-05-15 13:48 | XMS_ITS | Encounter Summary ---
Author Organization [employer] Address [address] [facility] 7t [place] [address] Care Team Providers Care Location Director Name Role Phone Hailey Harrington Primary Care Provider [phone] Hailey Harrington Primary Care Provider [phone] Andreea Porter NP Primary Care Provider [phone] Reason for Visit * Reason Onset Date Comments Prior Authorization 08/19/2023 telephone call 08/19/2023 No Show 08/19/2023 Encounter Details Date Type Department Care Team (Late st Contact Info) Description 08/19/2023 Telephone [facility] [address] [place], [place] [phone] Hailey Harrington FNP [address] [place] [address] Prior Authorization; telephone call; No Show Social [...] has. Patient states he was coming to [facility] to provide us his insurance card and then PCP can do telephone visit. Patient never came, no show for today's telephone visit. * Telephone Encounter - Maura Buchanan - 09/01/2023 10:26 AM EDT Tc to patient due to [facility] insurance. [facility] and scan [...] Ting Avelar - 08/19/2023 3:32 PM EST Can Handler s/w Abiel/[facility] pharmacy, who stated hydroCHLOROthiazide (HYDRODiuril) 50 MG tablet does not need a PA, needs a refill. Can Handler will work on PA for Otezla. * Telephone Encounter - Hector Bates - 08/19/2023 12:57 PM EST Tc from pt stating hydroCHLOROthiazide (HYDRODiuril) 50 MG tablet and Otezla 30 MG tablet needs prior authorization. If any questions you can contact pt at [phone]. documented in this encounter Plan of Treatment Upcoming Encounters Date Type Department Care Team (Late st Contact Info) Description 05/20/2025 3:30 PM EST Office Visit [facility] ADULT D[facility] [address] [facility] [place] [address] Juan Nunez, DDS [address] [place] [address] 05/27/2025 2:30 PM EST Office Visit [facility] [address] [place] [address] Andreea oPrter NP [address] [place] [address] 06/21/2025 10:00 AM EST Office Visit [facility] [address] [place] [address] Mary Beck MD [address] [place] [address] 07/05/2025 2:30 PM EST Office Visit [facility] ADULT DENTAL [address] [place] [address] Yvon Dixon DDS [address] [place] [address] 07/18/2025 2:15 PM EST Office Visit [facility] ADULT DENTAL [address] [place] [address] Natalie Dooley [address] [place] [address] documented as of this encounter Visit Diagnoses Not on filedocumented in this encounter Care Teams Location Director Relationship Specialty Start Date End Date Hailey Harrington FNP [address] [place] [address] PCP - General Family Medicine 12/20/22 01/16/24 Hailey Harrington FNP [address] [place] [address] PCP - General Family Medicine 01/17/24 02/13/24 Andreea Porter NP [address] [place] [address] PCP - General Family Medicine 02/14/24 documented as of this encounter
--- OUTSIDE RECORDS SUMMARY | 2025-05-15 13:48 | XMS_ITS | Encounter Summary ---
Author Organization [email or web address] Address [address] [place] [address] 7[address] [place] [address] Care Team Providers Care Boat Finisher Name Role Phone Hailey Harrington Primary Care Provider +- Hailey Harrington Primary Care Provider [phone] Andreea Porter NP Primary Care Provider [phone] Reason for Visit * Reason Onset Date Comments Med Refill 07/13/2023 Encounter Details Date Type Department Care Team (Late st Contact Info) Description 07/13/2023 Telephone [facility] MEDIC[facility] [address] [place] [address] Hailey Harrington FNP [address] [place] [address] Med Refill Social History Tobacco Use Types [...] to PCP. * Telephone Encounter - Heath Muñoz - 07/13/2023 2:06 PM EST TC from pt requesting medication refill. Medications needing refill : hydroCHLOROthiazide (HYDRODiuril) 50 MG tablet To be sent to: [facility] [place] - [address] [facility] documented in this encounter Plan of Treatment Upcoming Encounters Date Type Department Care Team (Late st Contact Info) Description 05/20/2025 3:30 PM EST Office Visit [facility] ADULT DENTAL [address] [facility] [place] [facility] [place] [address] Juan Nunez DDS [address] [place] [address] 05/27/2025 2:30 PM EST Office Visit [facility] MEDICINE [address] [place] [address] Andreea Porter NP [address] [place] [address] 06/21/2025 10:00 AM EST Office Visit [facility] MEDICINE [address] [place] [address] Mary Beck MD [address] [place] [address] 07/05/2025 2:30 PM EST Office Visit [facility] ADULT DENTAL [address] [place] [address] Yvon Dixon DDS [address] [place] [address] 07/18/2025 2:15 PM EST Office Visit [facility] ADULT DENTAL [address] [facility] [place] [address] Natalie Dooley [address] [place] [address] documented as of this encounter Visit Diagnoses Not on filedocumented in this encounter Care Teams Boat Finisher Relationship Specialty Start Date End Date Hailey Harrington FNP [address] [place] [address] PCP - General Family Medicine 12/20/22 01/16/24 Hailey Harrington FNP [address] [place] [address] PCP - General Family Medicine 01/17/24 02/13/24 Andreea Porter NP [address] [place] [address] PCP - General Family Medicine 02/14/24 documented as of this encounter
--- OUTSIDE RECORDS SUMMARY | 2025-05-15 13:48 | XMS_ITS | Clinical Summary ---
Author Organization [employer] Address [address] [facility] 7[address] [place] [address] Care Team Providers Care Director Physical Name Role Phone Charlotte Andreea MCKINNEY Primary Care Provider [phone] Allergies Active Allergy Reactions Criticality Noted Date Comments Lisinopril 11/27/2020 Other reaction(s): Male erectile disorder Pt states no longer is significant Medications amLODIPine (Norvasc) 5 MG tablet Take 1 tablet (5 mg) by mouth in the morning. 90 tablet 3 024 Active Additional Information Patient not taking.Reported on 05/07/2025 atorvastatin (Lipitor) 40 MG tabletIndications :Mixed hyperlipidemia Take 1 tablet (40 mg) by mouth at bedtime. 90 tablet 3 024 Active Additional Information Patient not taking.Reported on 05/07/2025 hydroCHLOROthiazi de (HYDRODiuril) 50 MG tablet Take 1 tablet (50 mg) by mouth in the morning. 90 tablet 3 024 Active Additional Information Patient not taking.Reported on 05/07/2025 apremilast (Otezla) 10 & 20 & 30 MG tablet therapy pack tablet therapy pack Use as prescribed bid \Do not crush, chew, or split tablets. 55 each 025 Active Blood Pressure Monitoring (Blood Pressure Cuff) misc Use daily as prescribed 1 each 025 Active acetaminophen (Tylenol 8 Hour) 650 MG ER tabletIndications :Pain, dental Take 1 tablet (650 mg) by mouth every 8 (eight) hours if needed for mild pain. Do not crush, chew, or split. 30 tablet 025 Active halobetasol (UltraVATE) 0.05 % ointmentIndicatio ns:Psoriasis APPLY 1 GRAM TO AFFECTED AREA(S) TWICE DAILY 50 g 2 05/14/20 11:37 AM EST Active ibuprofen 600 MG tablet Take 1 tablet (600 mg) by mouth 3 times daily for 5 days. 15 tablet 05/14/20 11:37 AM EST 2024 Active acetaminophen (Tylenol) 500 MG tablet Take 1 tablet (500 mg) by mouth every 8 (eight) hours if needed for mild pain for up to 5 days. 15 tablet 2024 Active ibuprofen 600 MG tablet Take 1 tablet (600 mg) by mouth 3 times daily for 7 days. 21 tablet 2024 Active acetaminophen (Tylenol) 500 MG tablet Take 1 tablet (500 mg) by mouth every 8 (eight) hours if needed for mild pain for up to 7 days. 21 tablet 05/14/20 11:37 AM EST 2024 Active acetaminophen (Tylenol 8 Hour) 650 MG ER tabletIndications :Pain, dental,Dental calculus,Missing teeth, acquired Take 1 tablet (650 mg) by mouth every 8 (eight) hours if needed for mild pain. Do not crush, chew, or split. 30 tablet 2024 Discontinued ibuprofen 600 MG tabletIndications :Pain, dental,Dental calculus,Missing teeth, acquired Take 1 tablet (600 mg) by mouth 3 times daily. 30 tablet 2024 Discontinued halobetasol (UltraVATE) 0.05 % ointmentIndicatio ns:Psoriasis Apply topically 2 times daily. APPLY 1 GRAM TOPICALLY TO AFFECTED AREA(S) TWICE DAILY 50 g 2 2024 Discontinued ibuprofen 600 MG tabletIndications :Pain, dental Take 1 tablet (600 mg) by mouth 3 times daily. 30 tablet 2024 Discontinued(R eorder (will not trigger notification to Pharmacy)) amoxicillin (Amoxil) 500 MG capsuleIndication s:Pain, dental Take 1 capsule (500 mg) by mouth every 8 (eight) hours for 7 days. 21 capsule 2024 amoxicillin (Amoxil) 500 MG capsule Take 1 capsule (500 mg) by mouth every 8 (eight) hours for 7 days. 21 capsule 04/25/20 10:28 AM EST 2024 ibuprofen 800 MG tablet Take 1 tablet (800 mg) by mouth every 8 (eight) hours if needed for mild pain for up to 10 days. 15 tablet 04/25/20 10:28 AM EST 2024 Additional Information Patient not taking.Reported on 05/07/2025 amoxicillin-clavu lanate (Augmentin) 875-125 MG tablet Take 1 tablet by mouth 2 times daily for 7 days. 14 tablet 05/06/20 11:18 AM EST 2024 ibuprofen 600 MG tabletIndications :Pain, dental Take 1 tablet (600 mg) by mouth every 8 (eight) hours if needed for mild pain for up to 7 days. 21 tablet 05/06/20 11:18 AM EST 2024 acetaminophen (Tylenol) 500 MG tablet Take 1 tablet (500 mg) by mouth every 8 (eight) hours if needed for mild pain for up to 7 days. 21 tablet 2024 Discontinued(R eorder (will not trigger notification to Pharmacy)) Active Problems Problem Noted Date Diagnosed Date [...] this time Referred to TB clinic at [facility] as he may need to be [...] Encounters Date Type Department Care Team Description 05/14/[address] [facility]INE [address] [place] [address] Andreea Porter NP 05/14/[address] [facility] [address] [place] [address] Andreea Porter NP Med Refill 05/14/[address] [facility] [address] [place] [address] Hailey Harrington FNP 05/14/[address] [facility] CH[facility] MED & PEDS [address] [place] [address] Andreea Porter NP 05/13/[address] [facility] ADULT DENTAL [address] [place] [address] CHALLA 05/07/2025 10:30 AM EST Office Visit [facility] ADULT DENTAL [address] [place] [address] Yvon Dixon DDS 05/05/[address] [facility] [address] [place] [address] Andreea Porter NP Psoriasis 04/30/[address] [facility] ADULT DENTAL [address] [place] [address] Yvon Dixon DDS 04/29/[address] [facility] [address] [place] [address] Andreea Porter NP today appointment 04/29/2025 Orders Only [facility] [address] [place] [address] Andreea Porter NP Hypokalemia (Primary Dx) 04/29/2025 Travel 04/26/[address] [facility] [address] [place] [address] Andreea Porter NP appointment Ins 04/24/2025 10:00 AM EST Office Visit [facility] ADULT DENTAL [address] [place] [address] Fontenot-Farias, Marine, DDS Acute pulpitis (Primary Dx); Pain, dental 04/24/2025 Telephone [facility] [address] [place] [address] Andreea Porter NP Fax over 04/23/2025 Telephone [facility] [address] [place] [address] Andreea Porter NP 04/22/2025 Telephone [facility] [address] [place] [address] Andreea Porter NP Results 04/22/2025 Results Follow-Up [facility] [address] [place] [address] Andreea Porter NP Potassium 04/22/[address] [facility] PEDIATRICS [address] [place] [address] Andreea Porter NP CRITICAL LAB 04/17/2025 11:30 AM EST Office Visit [facility] ADULT DENTAL [address] [place] [address] Bolano, Casey, DDS Pain, dental (Primary Dx) 04/15/2025 Refill [facility] [address] [place] [address] Andreea Porter NP 04/10/2025 3:00 PM EDT Office Visit [facility] ADULT DENTAL [address] [place] [address] Lefty Zaldivar Abfraction (Primary Dx) 03/26/2025 Telephone [facility] [address] [place] [address] Andreea Porter NP Alexis recall 03/25/2025 Results Follow-Up [facility] [address] [place] [address] Andreea Porter NP T-SPOT .TB 03/20/[address] [facility] [address] [facility] [place] [address] Andreea Porter NP Medical Records Request (I called per the forms nurse, to get more information on where the patient received treatment for TB, so that the records could be requested. He stated that he [facility]. He does not know the address, and is not sure if the facility is still in operation. He informed me that he was seen at the TB Clinic at [facility], and is waiting for a call from them, so that he could restart treatment.) 03/15/2025 11:00 AM EDT Office Visit [facility] ADULT DENTAL [address] [facility] [address] Natalie Dooley Stage 2 grade B generalized periodontitis per AAP/EFP 2017 classification (Primary Dx); Dental calculus 03/15/[address] [facility] [address] [facility] [place] [address] Andreea Porter NP Screening for tuberculosis (Primary Dx) 03/08/2025 9:00 AM EDT Office Visit [facility] ADULT DENTAL [address] [facility] [place] [address] Natalie Dooley Dental calculus (Primary Dx); Stage 2 grade B generalized periodontitis per AAP/EFP 2017 classification; Abfraction from Last 3 Months Immunizations Immunization Administration [...] Pressure 146/104 05/07/2025 11:18 AM EST Pulse 84 01/25/2025 10:43 AM EDT Temperature [...] Description 05/20/2025 3:30 PM EST Office Visit [facility] AD[facility] D[facility] [address] [place] [address] Juan Nunez, DDS [address] [place] [address] 05/27/2025 2:30 PM EST Office Visit [facility] [address] [place] [address] Andreea Porter NP [address] [place] [address] 06/21/2025 10:00 AM EST Office Visit [facility] [address] [place] [address] Mary Beck MD [address] [place] [address] 07/05/2025 2:30 PM EST Office Visit [facility] ADULT DENTAL [address] [place] [address] Yvon Dixon, DDS [address] [place] [address] 07/18/2025 2:15 PM EST Office Visit [facility] ADULT DENTAL [address] [place] [address] Natalie Dooley [address] [place] [address] Health Maintenance Due Date Last Done Comments [...] (1 of 2) 2020 COVID-19 Vaccine ( season) 2025 03/19/2022, 11/12/2020, 10/30/2020, Additional history exists Influenza Vaccine (#1) 2025 03/19/2022 Dental Oral Exam 07/18/2025 01/14/2025 Dental Prophylaxis 07/18/2025 01/14/2025 Dental X-Ray: Bitewings 01/15/2026 01/14/2025 Alcohol/Substance Use Screening 01/25/2026 01/25/2025 Depression Screening 01/25/2026 01/25/2025, 01/26/20 Disability Screening 01/25/2026 01/25/2025 SDOH Screening 01/25/2026 01/25/2025 Tobacco Screening 05/07/2026 05/07/2025 Dental X-Ray: Full Mouth 01/16/2028 01/14/2025, 01/12 Lipid Panel 11/26/2029 11/26/2024, 12/12, 01/06/2024, Additional [...] TREATMENT PLANNING Routine 05/07/2025 10:30 AM EST 2,4,5 PALLIATIVE (EMERGENCY) TREATMENT OF DENTAL PAIN - MINOR PROCEDURE Routine 05/07/2025 10:30 AM EST ENDO - CLEAN AND SHAPE Routine 05/07/2025 10:30 AM EST CASE PRESENTATION, DETAILED AND EXTENSIVE TREATMENT PLANNING Routine 04/24/2025 10:00 AM EST CONSULTATION - DIAGNOSTIC SERVICE PROVIDED BY DENTIST OR PHYSICIAN OTHER THAN REQUESTING DENTIST OR PHYSICIAN Routine 04/24/2025 10:00 AM EST MAGNESIUM Routine 04/23/2025 8:47 AM EST Psoriasis [...] Blood Count 8.8 4.8 - 10.8 X10*3/uL [facility] Red Blood Count 5.25 4.60 - 5.80 X10*6/uL [facility] Hemoglobin 15.0 14.0 - 18.0 g/dl [facility] Hematocrit 43.6 42.0 - 52.0 % [facility] Mean Corpuscular Volume 83.0 80.0 - 98.0 fL [facility] Mean Corpuscular Hemoglobin 28.6 27.0 - 33.0 pg [facility] Mean Corpuscular HGB Conc 34.4 31.0 - 36.0 g/dl [facility] Red Cell Distribution Width 12.2 11.0 - 16.0 % [facility] Platelet Count 170 160 - 400 X10*3/uL [facility] Mean Platelet Volume 11.8 9.4 - 12.4 fL [facility] Neutrophils Percent Auto 69.5 45 - 73 % [facility] Imm Gran Pct Auto 0.3 0.0 - 0.4 % [facility] Lymphocytes Percent Auto 20.6 20 - 40 % [facility] Monocytes Percent Auto 7.5 2 - 11 % [facility] Eosinophils Percent Auto 1.5 0 - 4 % [facility] Basophils Percent Auto 0.6 0 - 2 % [facility] NRBC Pct Auto 0.0 0.0 - 0.2 /100WBC [facility] Neutrophils Absolute Auto 6.1 2.0 - 8.3 x10*3/uL [facility] Imm Gran Abs Auto 0.03 0.00 - 0.03 X10*3/uL [facility] Lymphocytes Absolute Auto 1.8 1.2 - 4.9 X10*3/uL [facility] Monocytes Absolute Auto 0.7 0.1 - 1.2 X10*3/uL [facility] Eosinophils Absolute Auto 0.1 0.0 - 0.4 X10*3/uL [facility] Basophils Absolute Auto 0.1 0.0 - 0.2 X10*3/uL [facility] NRBC Abs Auto 0.000 0.0 - 0.012 X10*3/uL [facility] 04/23/2025 8:47 AM EST 04/23/2025 8:54 AM EST us Generic External Data Provider LAB BLOOD ORDERAB LES Final Result [facility] [address] [place] [address] [phone] * Magnesium (04/23/2025 8:47 AM EST) Magnesium 2.0 1.6 - 2.6 mg/dL [facility] 04/23/2025 8:47 AM EST 04/23/2025 8:54 AM EST us Generic External Data Provider LAB BLOOD ORDERAB LES Final Result [facility] [address] [place] [address] [phone] * (ABNORMAL) Basic Metabolic Panel (04/23/2025 8:47 AM EST) Sodium 140 135 - 145 mmol/L [facility] Potassium 2.8(LL) 3.3 - 5.1 mmol/L [facility] Comment:Critical value for P OTS: Results called to and read judithy: PRATIBHA Person calling: JOYCE Date: 04/23/25 Time: 920 Chloride 101 96 - 108 mmol/L [facility] Carbon Dioxide 28 22 - 29 mmol/L [facility] Anion Gap 14 12 - 20 [facility] Urea Nitrogen (BUN) 16 9 - 16 mg/dL [facility] Creatinine, Serum 0.94 0.5 - 1.4 mg/dL [facility] Creatinine Clr Calc Pharmacy 122.6 [facility] Comment:eGFR (calculated fro m the MDRD study equation) and eCrCl(calculated from the Cockcroft-Gault equation) are based ondifferent parameters and may not yield comparable results.If eCrCl result is absurd, please check patient'sheight/weight. Estimated Glomerular Filt Rate >60 [facility] Comment:Chronic Kidney Disea se: Estimated GFR < 60 mL/min/1.57v5Mzuvgv Kidney Disease: Estimated GFR < 15 mL/min/1.73m2 Glucose 180(H) 60 - 115 mg/dL [facility] Calcium 9.5 8.4 - 10.2 mg/dL [facility] 04/23/2025 8:47 AM EST 04/23/2025 8:54 AM EST Generic External Data Provider LAB BLOOD ORDERAB LES Final Result Performing Organization Address [facility] Co de Phone Number [facility] [address] [place] [phone] * (ABNORMAL) Potassium (04/22/2025 10:05 AM EST) Potassium 2.8(LL) 3.3 - 5.1 mmol/L [facility] Comment:Critical value for t est(s):POTS Results called to and readback by: CHINYERE Jaimes Person calling: PAO Date: 04/22/25Time:1315 04/22/2025 10:0 5 AM EST 04/22/2025 11:30 AM EST Hailey Harrington RESIDENTIAL INSURANCE INSPECTOR LAB BLOOD ORDERABLES Final Resu lt Performing Organization Address [facility] de Phone Number [facility] [address] [place] [phone] * (ABNORMAL) T-SPOT??.TB (03/21/2025 10:48 AM EDT) T Spot TB Positive( A) Negative [facility] Comment: Diagnosing or excluding tuberculosis (TB) [...] as aquantitative test. TS PANEL A 15 [facility] TS PANEL B 42 [facility] Negative Control Passed [facility] Positive Control Passed [facility] Comment:For additional infor mation, please refer [email or web address]/faq/ORQ960(This link is being provided for informational/educational purposes only.)THIS TEST WAS PERFORMED AT:[email or web address] [id number] [place] [address]DHHDFROESE PORTILLO MD,PHD 03/21/2025 10:4 8 AM EDT 03/21/2025 1:29 PM EDT Andreea Porter NP LAB BLOOD ORDERABLES Final Resu lt [facility] [address] [place] [address] [phone] * Hepatitis C Viral RNA, Quantitative, Real-Time PCR (11/26/2024 11:03 AM EDT) Hepatitis C Viral Load <15 NOT DETECTED NOT DETECTED IU/mL [facility] HCV Log PCR <1.18 NOT DETECTED NOT DETECTED Log IU/mL [facility] Comment:For additional infor mation, please refer [email or web address]/faq/PJL54m5(This link is being provided for informational/educational purposes only.)THIS TEST WAS PERFORMED AT:[email or web address] [address] [id number] LOPEZ MD Blood 11/26/2024 11:0 3 AM EDT 11/26/2024 1:00 PM EDT Clara Kohler MD LAB BLOOD ORDERABLES Fin al Result Performing Organization Address [facility]/ZIP Co de Phone Number [facility] [address] [place] [address] [phone] * HIV-1/2 Antigen and Antibodies, Fourth Generation, with Reflexes (11/26/2024 11:03 AM EDT) HIV AB/AG Nonreactive Nonreactive [facility] Comment:HIV-1 p24 Ag and/or HIV-1/HIV-2 Ab not detected.A test result that is nonreactive does not exclude thepossibility of exposure to or infection with HIV-1 and/orHIV-2. Nonreactive results in this assay for individualswith prior exposure to HIV-1 and/or HIV-2 may be due toantigen and antibody levels that are below the limit ofdetection of this assay.The [employer] HIV Ag/Ab Combo assay result andsupplemental assay results should be interpreted inconjunction with the patient's clinical presentation,history and other laboratory results. If the results areinconsistent with clinical evidence, additional testing issuggested to confirm the result. Blood Venous blood specimen / Unknown 11/26/2024 11:03 AM EDT 11/26/2024 1:14 PM EDT us Clara Kohler MD LAB BLOOD ORDERABLES Fin al Result Performing Organization Address City/[facility]/ZIP Co de Phone Number [facility] [address] [place] [address] [phone] * (ABNORMAL) Lipid Panel, Standard (11/26/2024 11:03 AM EDT) Triglycerides 190(H) <150 mg/dL [facility] Comment:Desirable Triglyceri de: less than 150 mg/dLBorderline High Triglyceride 150-199 mg/dLHigh Triglyceride: 200-499 mg/dLVery High Triglyceride: greater than or equal to 5OO mg/dL Cholesterol 208(H) <200 mg/dL [facility] Comment:Desirable Cholestero l: less than 200 mg/dLBorderline High Cholesterol: 200-239 mg/dLHigh Cholesterol: greater than 239 mg/dL LDL Cholesterol Calculated 128(H) <100 mg/dL [facility] Comment:Desirable LDL: less than 100 mg/dLNear Optimal/Above Optimal LDL: 110- 129 mg/dLBorderline High LDL: 130-159 mg/dLHigh LDL: 160-189 mg/dLVery High LDL: greater than or equal to 190 mg/dL HDL Cholesterol 42 >40 mg/dL [facility] Comment:Desirable HDL: great er than 40 mg/dL Note: This HDL assay may give artificially low results in patients with liver disease. Blood Venous blood specimen / Unknown 11/26/2024 11:03 AM EDT 11/26/2024 1:14 PM EDT Hailey Harrington RESIDENTIAL INSURANCE INSPECTOR LAB BLOOD ORDERABLES Final Resu lt [facility] [address] [place] [address] [phone] from Last 3 Months or Most Recently Relevant to Health Maintenance Insurance [facility] C[facility] * Guarantor: Ramesh Zepeda Account Type Relation to Patient Date of Phone Billing Address Personal/Family Self [address] [place] Care Teams Director Physical Relationship Specialty Start Date End Date Andreea Porter NP [address] [place] [phone] PCP - General Family Medicine 02/14/24
--- OUTSIDE RECORDS SUMMARY | 2025-05-15 13:48 | XMS_ITS | Encounter Summary ---
Author Organization [employer] Address [address] [facility] [address] [place] [address] Care Team Providers Care Prep Person Name Role Phone Andreea Porter NP Primary Care Provider [phone] Encounter Details Date Type Department Care Team (Late st Contact Info) Description 05/14/2025 Refill [facility] [address] [place] [address] Andreea Porter NP [address] [place] [address] Social History Tobacco Use Types Packs/Day Years [...] encounter Miscellaneous Notes * Telephone Encounter - Xavier Edmonds - 05/14/2025 11:28 AM EST Patient came into pharmacy looking for refills on his blood pressure medications. According to our records patient hasn't been prescribed an prescription for blood pressure since 12/25/23. Asked patient to go see PCP for re-evaluation / refills, also informed we would send a request if appropriate. documented in this encounter Plan of Treatment Upcoming Encounters Date Type Department Care Team (Late st Contact Info) Description 05/20/2025 3:30 PM EST Office Visit [facility] [address] [place] [address] Juan Nunez DDS [address] [place] [phone] 05/27/2025 2:30 PM EST Office Visit [address] [address] Andreea Porter NP [address] [place] [address] 06/21/2025 10:00 AM EST Office Visit [address] [address] Mary Beck MD [address] [place] [address] 07/05/2025 2:30 PM EST Office Visit [facility] ADULT DENTAL [address] [place] [address] Yvon Dixon DDS [address] [place] [address] 07/18/2025 2:15 PM EST Office Visit [facility] ADULT DENT[facility] 230 [facility], [place] [phone] SoumyaNatalie [address] [place] [address] documented as of this encounter Visit Diagnoses Not on filedocumented in this encounter Additional Health Concerns Assessment Noted Time PHQ-9 Depression Total Score: 0 01/26/20 25 10:45 AM EDT documented as of this encounter Care Teams Prep Person Relationship Specialty Start Date End Date Andreea Porter NP [address] [place] [phone] PCP - General Family Medicine 02/14/24 documented as of this encounter
--- OUTSIDE RECORDS SUMMARY | 2025-05-15 13:48 | XMS_ITS | Encounter Summary ---
Author Organization [employer] Address [address] [place] [address] 7t [place] [address] Care Team Providers Care Acid Crane Operator Name Role Phone Hailey Harrington Primary Care Provider [phone] Andreea Porter NP Primary Care Provider [phone] Reason for Referral * Consultation (Routine) - Closed Specialty Diagnoses / Procedures Referred By Contaysha t Referred To Contact Infectious Diseases Diagnoses Positive QuantiFERON-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 Hailey Harrington FNP [address] [place] [address] Phone: tel: fax: Referral ID Status Reason Start Date Expiration Date V isits Requested Visits Authorized [id number] Closed Specialty Services Required 02/12/2024 02/11/2025 1 1 Encounter Details Date Type Department Care Team (Late st Contact Info) Description 02/12/2024 Orders Only [facility] MED & PEDS [address] [place] [address] Hailey Harrington FNP [address] [place] [address] Positive QuantiFERON-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 (Primary Dx); Hypertriglyceridemia [...] Description 05/20/2025 3:30 PM EST Office Visit [facility] ADULT DENTAL [address] [facility] [place] [address] Juan Nunez DDS [address] [place] [address] 05/27/2025 2:30 PM EST Office Visit [facility] MEDICINE [address] [place] [address] Andreea Porter NP [address] [place] [address] 06/21/2025 10:00 AM EST Office Visit [facility] [address] [place] [address] Mary Beck MD [address] [place] [address] 07/05/2025 2:30 PM EST Office Visit [facility] ADULT DENTAL [address] [place] [address] Yvon Dixon DDS [address] [place] [address] 07/18/2025 2:15 PM EST Office Visit [facility] ADULT DENTAL [address] [place] [address] Natalie Dooley [address] [place] [address] Scheduled Orders Name Type Priority Associated Diagnoses [...] 11:03 AM EDT) Triglycerides 190(H) <150 mg/dL [facility] Comment:Desirable Triglyceri de: less than 150 mg/dLBorderline High Triglyceride 150-199 mg/dLHigh Triglyceride: 200-499 mg/dLVery High Triglyceride: greater than or equal to 5OO mg/dL Cholesterol 208(H) <200 mg/dL [facility] Comment:Desirable Cholestero l: less than 200 mg/dLBorderline High Cholesterol: 200-239 mg/dLHigh Cholesterol: greater than 239 mg/dL LDL Cholesterol Calculated 128(H) <100 mg/dL [facility] Comment:Desirable LDL: less than 100 mg/dLNear Optimal/Above Optimal LDL: 110- 129 mg/dLBorderline High LDL: 130-159 mg/dLHigh LDL: 160-189 mg/dLVery High LDL: greater than or equal to 190 mg/dL HDL Cholesterol 42 >40 mg/dL [facility] Comment:Desirable HDL: great er than 40 mg/dL Note: This HDL assay may give artificially low results in patients with liver disease. Blood Venous blood specimen / Unknown 11/26/2024 11:03 AM EDT 11/26/2024 1:14 PM EDT Hailey Harrington HALL WORKER LAB BLOOD ORDERABLES Final Resu lt [facility] [address] [place] [address] [phone] documented in this encounter Visit Diagnoses Diagnosis Positive QuantiFERON-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- Primary Hypertriglyceridemia Pure hyperglyceridemia documented in this encounter Additional Health Concerns Assessment Noted Time PHQ-9 Depression Total Score: 0 12/28/19 2:20 PM EDT documented as of this encounter Care Teams Acid Crane Operator Relationship Specialty Start Date End Date Hailey Harrington FNP [address] [place] [address] PCP - General Family Medicine 01/17/24 02/13/24 Andreea Porter NP [address] [place] [address] PCP - General Family Medicine 02/14/24 documented as of this encounter
--- OUTSIDE RECORDS SUMMARY | 2025-05-15 13:48 | XMS_ITS | Encounter Summary ---
Author Organization [employer] Address [address] [place] [address] 7t [place] [address] Care Team Providers Care Manager Gift Name Role Phone Hailey Harrington Primary Care Provider +- Hailey HarringtonP Primary Care Provider [phone] Andreea Porter NP Primary Care Provider [phone] Encounter Details Date Type Department Care Team (Late st Contact Info) Description 07/20/2023 Orders Only [facility] MED & PEDS [address] [place] [address] Hailey Harrington FNP [address] [place] [address] Social History Tobacco Use Types Packs/Day Years [...] Description 05/20/2025 3:30 PM EST Office Visit [facility] ADULT DENTAL [address] [place] [address] Juan Nunez, DDS [address] [place] [address] 05/27/2025 2:30 PM EST Office Visit [facility] [address] [place] [address] Andreea Porter NP [address] [place], [place] [address] 06/21/2025 10:00 AM EST Office Visit [facility] [address] [place] [address] Mary Beck MD [address] [place] [address] 07/05/2025 2:30 PM EST Office Visit [facility] ADULT DENTAL [address] [facility] [place] [address] Yvon Dixon DDS [address] [place], [place] [address] 07/18/2025 2:15 PM EST Office Visit [facility] ADULT DENTAL [address] [place] [address] Natalie Dooley [address] [place] [address] documented as of this encounter Visit Diagnoses Not on filedocumented in this encounter Care Teams Manager Gift Relationship Specialty Start Date End Date [place]iley [place] [address] PCP - General Family Medicine 12/20/22 01/16/24 [place] [address] PCP - General Family Medicine 01/17/24 02/13/24 [place] [address] PCP - General Family Medicine 02/14/24 documented as of this encounter
--- OUTSIDE RECORDS SUMMARY | 2025-05-15 13:48 | XMS_ITS | Encounter Summary ---
Author Organization [employer] Address [address] [facility] 7t [place] [address] Care Team Providers Care Manager Corporate Communications Name Role Phone Anselmo, Valeriaaaron Michaud PROOFREADER Primary Care Provider Chantale Hailey Messer PROOFREADER Primary Care Provider [phone] Hailey Harrington PROOFREADER Primary Care Provider [phone] Andreea Porter NP Primary Care Provider [phone] Encounter Details Date Type Department Care Team (Late st Contact Info) Description 08/09/2022 Orders Only [facility] MED & PEDS [address] [place] [address] Bronwyn Amezcua LPN Social History Tobacco Use [...] Description 05/20/2025 3:30 PM EST Office Visit [facility] ADULT DENTAL [address] [place] [address] Juan Nunez, NADIRAS [address] [facility] [place] [address] 05/27/2025 2:30 PM EST Office Visit [facility] MEDIC[facility] [address] [facility] [place] [address] Andreea Porter NP [address] [facility] [place] [address] 06/21/2025 10:00 AM EST Office Visit [facility] MED[facility] [address] [facility] [place] [address] Mary Beck MD [address] [place] [address] 07/05/2025 2:30 PM EST Office Visit [facility] ADULT DENTAL [address] [facility] [place] [address] Yvon Dixon DDS [address] [facility] [place] [address] 07/18/2025 2:15 PM EST Office Visit [facility] ADULT DENTAL [address] [facility] [place] [address] Soumya, Natalie [address] [facility] [place] [address] documented as of this encounter Visit Diagnoses Not on filedocumented in this encounter Care Teams Manager Corporate Communications Relationship Specialty Start Date End Date Valeria Briones FNP PCP - General Family Medicine 12/08/21 12/19/22 Hailey Harrington FNP [address] [facility] [place] [address] PCP - General Family Medicine 12/20/22 01/16/24 Hailey Harrington FNP [address] [facility] [place] [address] PCP - General Family Medicine 01/17/24 02/13/24 Andreea Porter NP [address] [place] [address] PCP - General Family Medicine 02/14/24 documented as of this encounter
--- OUTSIDE RECORDS SUMMARY | 2025-05-15 13:48 | XMS_ITS | Encounter Summary ---
Author Organization [employer] Address [address] [facility] 7t [place] [address] Care Team Providers Care Manager Collection Name Role Phone Andreea Porter NP Primary Care Provider [phone] Reason for Visit * Reason Onset Date Comments Med Refill 05/14/2025 Encounter Details Date Type Department Care Team ([facility] st Contact Info) Description 05/14/2025 Telephone [facility] MEDICINE [address] [place], [place] [phone] Andreea Porter NP [address] [place], [place] [id number] Med Refill Social History Tobacco Use Types [...] Telephone Encounter - Bronwyn Amezcua LPN - 05/14/2025 10:00 AM EST Medication pended to PCP. * Telephone Encounter - Zeyad Christianson - 05/14/2025 9:58 AM EST TC from pt requesting medication refill. Medications needing refill : amLODIPine (Norvasc) 5 MG tablet hydroCHLOROthiazide (HYDRODiuril) 50 MG tablet To be sent to: [facility] documented in this encounter Plan of Treatment Upcoming Encounters Date Type Department Care Team (Late st Contact Info) Description 05/20/2025 3:30 PM EST Office Visit [facility] ADULT DENTAL [address] [place] [address] uJan Nunez DDS [address] [place] [address] 05/27/2025 2:30 PM EST Office Visit [facility] MEDICINE [address] [place] [address] Andreea Porter NP [address] [place] [address] 06/21/2025 10:00 AM EST Office Visit [facility] MEDICINE [address] [place] [address] Mayr Beck MD [address] [place] [address] 07/05/2025 2:30 PM EST Office Visit [facility] ADULT DENTAL [address] [place] [address] Yvon Dixon DDS [address] [place] [address] 07/18/2025 2:15 PM EST Office Visit [facility] ADULT DENTAL [address] [place] [address] Natalie Dooley [address] [place] [address] documented as of this encounter Visit Diagnoses Not on filedocumented in this encounter Additional Health Concerns Assessment Noted Time PHQ-9 Depression Total Score: 0 01/26/20 25 10:45 AM EDT documented as of this encounter Care Teams Manager Collection Relationship Specialty Start Date End Date Andreea Porter NP [address] [place] [address] PCP - General Family Medicine 02/14/24 documented as of this encounter
--- OUTSIDE RECORDS SUMMARY | 2025-05-15 13:48 | XMS_ITS | Encounter Summary ---
Author Organization [employer] Address [address] [facility] 7t [place] [address] Care Team Providers Care Composition Floor Setter Name Role Phone Andreea Porter NP Primary Care Provider [phone] Reason for Visit * Reason Onset Date [...] (Late st Contact Info) Description 04/15/2025 Refill [facility] MEDICINE [address] [place], [place] [phone] Andreea Porter NP [address] [place] [address] Social History Tobacco Use Types Packs/Day Years [...] Description 05/20/2025 3:30 PM EST Office Visit [facility] ADULT DENTAL [address] [place] [address] Juan Nunez, NADIRAS [address] [place] [address] 05/27/2025 2:30 PM EST Office Visit [facility] MEDICINE [address] [place] [address] Andreea Porter NP [address] [place] [address] 06/21/2025 10:00 AM EST Office Visit [facility] MEDICINE [address] [place] [address] Mary Beck MD [address] [place] [address] 07/05/2025 2:30 PM EST Office Visit [facility] ADULT DENTAL [address] [place] [address] Yvon Dixon DDS [address] [place] [address] 07/18/2025 2:15 PM EST Office Visit [facility] ADULT DENTAL [address] [place] [address] Natalie Dooley [address] [place] [address] documented as of this encounter Visit Diagnoses Not on filedocumented in this encounter Additional Health Concerns Assessment Noted Time PHQ-9 Depression Total Score: 0 01/26/20 25 10:45 AM EDT documented as of this encounter Care Teams Composition Floor Setter Relationship Specialty Start Date End Date Andreea Porter NP [address] [place] [address] PCP - General Family Medicine 02/14/24 documented as of this encounter
--- OUTSIDE RECORDS SUMMARY | 2025-05-15 13:48 | XMS_ITS | Encounter Summary ---
Author Organization [employer] Address [address] [facility] 7t [place] [address] Care Team Providers Care Pharmacy Messenger Name Role Phone Charlotte Andreea MCKINNEY Primary Care Provider [phone] Reason for Visit * Reason Comments Med Refill Encounter Details Date Type Department Care Team ([facility] st Contact Info) Description 05/14/2025 Refill [facility] [address] [place] [address] Hailey Harrington FNP [address] [place] [address] Social History Tobacco Use Types Packs/Day Years [...] Description 05/20/2025 3:30 PM EST Office Visit [facility] ADULT DENTAL [address] [place] [address] Juan Nunez DDS [address] [place] [address] 05/27/2025 2:30 PM EST Office Visit [address] [address] Andreea Porter NP [address] [place] [address] 06/21/2025 10:00 AM EST Office Visit [address] [address] Mary Beck MD [address] [place] [address] 07/05/2025 2:30 PM EST Office Visit [facility] ADULT DENTAL [address] [place] [address] Yvon iDxon DDS [address] [place] [address] 07/18/2025 2:15 PM EST Office Visit [facility] ADULT DENTAL [address] [place] [address] Natalie Dooley [address] [place] [address] documented as of this encounter Visit Diagnoses Not on filedocumented in this encounter Additional Health Concerns Assessment Noted Time PHQ-9 Depression Total Score: 0 01/26/20 25 10:45 AM EDT documented as of this encounter Care Teams Pharmacy Messenger Relationship Specialty Start Date End Date Andreea Porter NP [address] [place] [address] PCP - General Family Medicine 02/14/24 documented as of this encounter
== END 2025-05-15 11:33 | disposition home or self-care (01) ==
PROVIDERS: Emergency Provider Emergency Medicine; PCP Internal Medicine
DX: Z76.0 Encounter for issue of repeat prescription (principal); I10 Essential (primary) hypertension
CPT/HCPCS: 99282; 99283

== ENCOUNTER 2025-05-22 10:47 | Outpatient (REF) | payer OTHER, SELFPAY ==
[2025-05-22 14:42] LABS: Anion Gap 15 (12-20); Blood Urea Nitrogen 17 mg/dL (9-16); Calcium 10.1 mg/dL (8.4-10.2); Carbon Dioxide 29 mmol/L (22-29); Chloride 100 mmol/L (96-108); Estimated Glomerular Filt Rate > 60; Potassium 3.1 mmol/L (3.3-5.1); Sodium 141 mmol/L (135-145)
== END 2025-05-22 10:48 | disposition home or self-care (01) ==
LOC: HO.HHCL 10:47
PROVIDERS: PCP Internal Medicine; Visit Provider Nurse Practitioner
DX: E87.6 Hypokalemia (principal)
CPT/HCPCS: 36415; 80048